=== PATIENT | female | born 1930 | race Caucasian/White ===

== ENCOUNTER → 2017-01-06 | Outpatient (CLI) | payer OTHER | LOC: FIMAGING 15:32 | PROVIDERS: ATTEND Family Medicine | DX: M71.22 Synovial cyst of popliteal space [Baker], left knee (principal); M79.89 Other specified soft tissue disorders ==

== ENCOUNTER 2017-07-03 16:46 | Emergency (ER) | payer OTHER ==
--- NOTE | 2017-07-03 18:03 | EDPHY ---
H & P Stated Complaint: l leg swelling(pt did have fall last week) unsure if related Time Seen by Provider: 07/03/17 17:25 HPI/ROS: Chief Complaint: Left leg swelling HPI: 87-year-old woman presenting with worsening left leg swelling for the past several days. She did state that she fell earlier in this week landing on her left side. She has been up and ambulating since but has been having some persistent pain. She has a history of chronic pain in her left knee. She also has a history of some dependent edema but has had no slowly worsened left calf swelling as compared to the right. No fevers or chills. No chest pain or shortness of breath. She has been ambulating at home without any difficulty. Did not hit her head. Has been in her normal state health. Is here with her son. ROS: 10 point Review of Systems is negative except as noted in the HPI. PMH: Type 2 diabetes, post herpetic neuralgia, hypothyroidism. Past surgical history: Bilateral hip and right knee replacement. Social History: No smoking, no alcohol, no recreational drug use Family History: non-contributory Physical Exam: Gen: Awake, Alert, No Distress HEENT: Nose: no rhinorrhea Eyes: PERRLA, EOMI Mouth: Moist mucosa Neck: Supple, no JVD Chest: nontender, lungs clear to auscultation Heart: S1, S2 normal, no murmur Abd: Soft, non-tender, no guarding Back: no CVA tenderness, no midline tenderness Ext: She has significant left calf swelling as compared to right. Right is mildly swollen. Left calf there is a small area of fluctuance just proximal to the lateral malleolus. There is a very small amount of erythema. Her calf is tender to the touch. Skin: no rash Neuro: CN II-XII intact, Sensation grossly intact, Strength 5/5 in bilateral upper and lower extremities - Personal History Current Tetanus/Diphtheria Vaccine: Unsure - Medical/Surgical History Hx Asthma: No Hx Chronic Respiratory Disease: Yes Hx Diabetes: No Hx Cardiac Disease: Yes Hx Renal Disease: No Hx Cirrhosis: No Hx Alcoholism: No Hx HIV/AIDS: No Hx Splenectomy or Spleen Trauma: No Other PMH: AFIB, NADIYA, BRONCHIECTISIS, BILAT BETSEY, RT TKA, KIDNEY INFECTION - Social History Smoking Status: Never smoked Constitutional: Initial Vital Signs Temperature (C) 36.8 C 07/03/17 16:53 Heart Rate 63 07/03/17 16:53 Respiratory Rate 19 07/03/17 16:53 Blood Pressure 133/71 H 07/03/17 16:53 O2 Sat (%) 90 L 07/03/17 16:53 O2 Delivery Mode Room Air Allergies/Adverse Reactions: levofloxacin [Levofloxacin] Allergy (Verified 07/03/17 16:50) Home Medications: Medication Instructions Recorded Metformin HCl [Metformin 1000 mg] 1,000 mg PO BID 01/09/14 Metoprolol Tartrate [Lopressor 25 25 mg PO BID 01/09/14 mg (RX)] Multivit-Min/FA/Lycopene/Lut 1 each PO DAILY 01/09/14 [Centrum Silver Tablet] Valacyclovir HCl [Valtrex] 1,000 mg PO TID #21 tab 10/11/16 Cephalexin [Keflex (*)] 500 mg PO Q6H #40 cap 07/03/17 Sulfamethox/Tmp 800/160 mg 1 tab PO BID #20 tab 07/03/17 [Bactrim Ds] Medical Decision Making - Diagnostics Imaging Results: Imaging Impressions Extremity Venous Study 07/03/17 17:51 Impression: 1. No definite deep venous thrombosis. The peroneal veins are difficult to characterize given the extent of edema. 2. White's cyst is unchanged. Findings discussed with Emergency Department physician, Dr. Marco Carolina, on July 03, 2017 at 1853 hours. Imaging: Discussed imaging studies w/ waiver analyst Radiologist, I viewed and interpreted images myself ED Course/Re-evaluation: Ultrasound is negative for DVT, especially and large proximal DVT. X-rays negative for acute injury. She does have small area of erythema on the lateral aspect of her left ankle. Will start her on some antibiotics for possible early cellulitis. She will follow up with primary care doctor on Thursday. Return Departure - Departure Disposition: Home, Routine, Self-Care Clinical Impression: Cellulitis, Leg swelling Condition: Good Instructions: Cellulitis (ED), Leg Edema (ED) Additional Instructions: Follow up with primary care physician on Thursday. Return emergency department for increasing redness, swelling, shortness of breath, fevers, chills, or any other concerns. Referrals: SCOTT CURTIS [Primary Care Provider] - As per Instructions Prescriptions: Cephalexin [Keflex (*)] 500 mg PO Q6H #40 cap Sulfamethox/Tmp 800/160 mg [Bactrim Ds] 1 tab PO BID #20 tab
[2017-07-03] MEDS ORDERED: SULFAMET/TMP DS PREPACK#2 BTL TAKEHOME ONE (19:43)
[2017-07-03] MEDS ORDERED: CEPHALEXIN 500MG PREPACK#4 BTL TAKEHOME ONE (19:43)
[2017-07-03 20:26] VITALS: BP 134/80; PULSE 58; RESP 16; TEMP 97.5; O2SAT 98
== END 2017-07-03 20:25 | disposition home or self-care (01) ==
DX: L03.116 Cellulitis of left lower limb (principal); L03.115 Cellulitis of right lower limb; E11.9 Type 2 diabetes mellitus without complications; Z79.84 Long term (current) use of oral hypoglycemic drugs; W18.30XA Fall on same level, unspecified, initial encounter

== ENCOUNTER 2017-07-10 20:19 | Inpatient (IN) | payer OTHER ==
--- NOTE | 2017-07-10 20:39 | EDPHY ---
H & P Stated Complaint: abnormal lab results at MD's Time Seen by Provider: 07/10/17 20:39 - Personal History Current Tetanus Diphtheria and Acellular Pertussis (TDAP): Yes - Medical/Surgical History Hx Asthma: No Hx Chronic Respiratory Disease: Yes Hx Diabetes: Yes Hx Cardiac Disease: Yes Hx Renal Disease: Yes Hx Cirrhosis: No Hx Alcoholism: No Hx HIV/AIDS: No Hx Splenectomy or Spleen Trauma: No Other PMH: AFIB, NADIYA, BRONCHIECTISIS, BILAT BETSEY, RT TKA, KIDNEY INFECTION - Social History Smoking Status: Never smoked Constitutional: Initial Vital Signs Temperature (C) 36.3 C 07/10/17 20:29 Heart Rate 55 L 07/10/17 20:29 Respiratory Rate 20 07/10/17 20:29 Blood Pressure 96/48 L 07/10/17 20:29 O2 Sat (%) 92 07/10/17 20:29 O2 Delivery Mode Nasal Cannula O2 (L/minute) 4 Allergies/Adverse Reactions: levofloxacin [Levofloxacin] Allergy (Verified 07/03/17 16:50) Home Medications: Medication Instructions Recorded Metformin HCl [Metformin 1000 mg] 1,000 mg PO BID 01/09/14 Metoprolol Tartrate [Lopressor 25 25 mg PO BID 01/09/14 mg (RX)] Multivit-Min/FA/Lycopene/Lut 1 each PO DAILY 01/09/14 [Centrum Silver Tablet] Cephalexin [Keflex (*)] 500 mg PO Q6H #40 cap 07/03/17 Sulfamethox/Tmp 800/160 mg 1 tab PO BID #20 tab 07/03/17 [Bactrim Ds] Lyrica 07/10/17 Synthroid 07/10/17 Medical Decision Making ED Course/Re-evaluation: CHIEF COMPLAINT: Worsening renal insufficiency and elevated potassium HISTORY OF PRESENT ILLNESS: 87-year-old female who presented here last week with some bilateral lower extremity edema. She is seen by Dr. Sifuentes for renal insufficiency but there has been no need to intervene according to her son and the patient. She was started on some antibiotics for some cellulitis associated with the lower extremity edema. She had a DVT study which was unremarkable bilaterally. She was recently having some additional leg swelling and her primary care physician Dr. cydney Quintana measured her electrolytes and yesterday revealed potassium of 6.0 and a creatinine of 2.2 he repeated those numbers today and her potassium went up slightly to 6.2 and her creatinine went up slightly to 2.4 and she continues to get additional edema. She otherwise has no complaints. She has been on antibiotics for her leg cellulitis and she may be getting some diarrhea. REVIEW OF SYSTEMS: A 10 point review of systems was performed and is negative with the exception of the elements mentioned in the history of present illness. PHYSICAL EXAM: HR, BP, O2 Sat, RR. Temp noted General Appearance: Alert, well hydrated, appropriate, and non-toxic appearing. Head: Atraumatic without scalp tenderness or obvious injury Eyes: Pupils equal, round, reactive to light and accommodation, EOMI, no trauma , no injection. Ears: Clear bilaterally, no perforation, normal landmarks Nose: Atraumatic, no rhinorrhea, clear. Throat: There is no erythema or exudates, no lesions, normal tonsils, mucus membranes moist. Neck: Supple, 2+ carotid upstroke, nontender, no lymphadenopathy. Respiratory: No retractions, no distress, no wheezes, and no accessory muscle use. Lungs are clear to auscultation bilaterally. Cardiovascular: Regular rate and rhythm, no murmurs, rubs, or gallops. Bilateral carotid, radial, dorsalis pedis, and posterior tibial pulses intact. Good capillary refill all extremities. Gastrointestinal: Abdomen is soft, nontender, non-distended, no masses, no rebound, no guarding, no peritoneal signs. Musculoskeletal: Bilateral lower extremity edema and mild cellulitis left greater than right. Normal active ROM of all extremities, atraumatic. Neurological: Alert, appropriate, and interactive. The patient has normal DTRs and non-focal cranial nerves, motor, sensory, and cerebellar exam. Skin: No rashes, good turgor, no nodules on palpation. Past medical history: Renal insufficiency, type 2 diabetes, hypothyroidism, hypertension Past surgical history: Noncontributory Family history: Noncontributory Social history: , she is accompanied here by her son, she does not abuse tobacco drugs or alcohol DIFFERENTIAL DIAGNOSIS: Patient's worsening edema is secondary to: Renal insufficiency, postobstructive renal disease, intrinsic renal disease, congestive heart failure, fluid overload MEDICAL DECISION MAKING: This patient is in no distress but she does require admission. Her kidney function seems to be worsening and her peripheral edema seems to be worsening. I will admit her to the hospitalist and consult Dr. Sifuentes who is coverage. We also will need to work her up for Clostridium difficile since she is on antibiotics and is starting to developed diarrhea. 21:[address] Lomas, cuff slitter sponsorship coordinator. She recommends administration of insulin, glucose, and sodium bicarbonate for hyperkalemia. Plan to recheck potassium in two hours. Call nephrology for recheck at that time. Departure - Departure Disposition: [facility] Inpatient Acute Clinical Impression: Renal insufficiency, Serum potassium elevated Condition: Fair Report Scribed for: Earl Rivera Report Scribed by: Jasmyne Mata Date of Report: 07/10/17 Time of Report: 21:20
[2017-07-10] MEDS ORDERED: INSULIN REGULAR HUMAN 10 UNIT, COSIGN. REQUIRED 1 EA in D10W 500 ML IV ONE (21:05)
[2017-07-10] MEDS ORDERED: D50W 25 GM/50 ML SYR IVP ONE (21:05)
[2017-07-10] MEDS ORDERED: SODIUM BICARBONATE 150 MEQ in D5W 1,000 ML IV ONE (21:05)
[2017-07-10] MEDS ORDERED: INSULIN REGULAR HUMAN 100 UNIT/ML IVP ONE (21:05)
[2017-07-10 21:41] LABS: % IMMATURE GRANULYOCYTES 0.5 % (0.0-1.1); ABSOLUTE IMMATURE GRANULOCYTES 0.04 10^3/uL (0.00-0.10); ADD DIFF? NO; ADD MORPH? NO; ADD SCAN? NO; ATYPICAL LYMPHOCYTE FLAG 0 (0-99); FRAGMENT RBC FLAG 0 (0-99); HEMATOCRIT 30.3 % (38.0-47.0); HEMOGLOBIN 9.4 g/dL (12.6-16.3); LEFT SHIFT FLG 0 (0-99); LIPEMIA HEMOLYSIS FLAG 80 (0-99); MEAN CELL HEMOGLOBIN 29.5 pg (27.9-34.1); PLATELET CLUMPS FLAG 0 (0-99); PLATELET COUNT 183 10^3/uL (150-400); RED BLOOD CELL COUNT 3.19 10^6/uL (4.18-5.33); RED CELL DISTRIBUTION WIDTH 16.9 % (11.5-15.2)
[2017-07-10 21:51] LABS: INR 1.05 (0.83-1.16); PROTIME(PATIENT) 13.6 SEC (12.0-15.0)
[2017-07-10 21:52] LABS: APTT 38.3 SEC (23.0-38.0)
[2017-07-10 22:02] LABS: ALANINE AMINOTRANSFERASE 44 IU/L (9-52); ALBUMIN 3.7 g/dL (3.5-5.0); ALKALINE PHOSPHATASE 125 IU/L (38-126); ANION GAP 15 mEq/L (8-16); ASPARTATE AMINOTRANSFERASE 43 IU/L (14-46); BILIRUBIN,TOTAL 0.2 mg/dL (0.1-1.4); BILIRUBIN-CONJUGATED 0.2 mg/dL (0.0-0.5); CALCIUM 10.7 mg/dL (8.5-10.4); CARBON DIOXIDE 26 mEq/l (22-31); CHLORIDE 99 mEq/L (97-110); CREATININE 2.5 mg/dL (0.6-1.0); GLOMERULAR FILTRATION RATE 18; GLUCOSE 82 mg/dL (70-100); SODIUM 140 mEq/L (134-144); TOTAL PROTEIN 7.3 g/dL (6.3-8.2)
[2017-07-10 22:05] LABS: POTASSIUM 6.3 mEq/L (3.5-5.2)
--- NOTE | 2017-07-10 23:28 | CPEKG ---
Heart Rate: 58 RR Interval: 1034 P-R Interval: 212 QRSD Interval: 102 QT Interval: 432 QTC Interval: 425 P [place]: 109 QRS [place]: 62 T Wave [place]: 35 EKG Severity - NORMAL ECG - EKG Impression: SINUS RHYTHM Electronically Signed By: Bob Esposito 15-Jul-2017 17:07:07
[2017-07-11 00:27] LABS: ALANINE AMINOTRANSFERASE 41 IU/L (9-52); ALBUMIN 3.3 g/dL (3.5-5.0); ALKALINE PHOSPHATASE 96 IU/L (38-126); ANION GAP 14 mEq/L (8-16); ASPARTATE AMINOTRANSFERASE 42 IU/L (14-46); BILIRUBIN,TOTAL 0.2 mg/dL (0.1-1.4); CALCIUM 10.3 mg/dL (8.5-10.4); CARBON DIOXIDE 27 mEq/l (22-31); CHLORIDE 101 mEq/L (97-110); CREATININE 2.5 mg/dL (0.6-1.0); GLOMERULAR FILTRATION RATE 18; GLUCOSE 61 mg/dL (70-100); POTASSIUM 4.2 mEq/L (3.5-5.2); SODIUM 142 mEq/L (134-144); TOTAL PROTEIN 6.6 g/dL (6.3-8.2)
[2017-07-11] MEDS ORDERED: NS 1,000 ML IV ONE ×2 (00:53→01:31)
[2017-07-11] MEDS ORDERED: ONDANSETRON 4 MG/2 ML VIAL IVP PRN (01:31)
[2017-07-11] MEDS ORDERED: ACETAMINOPHEN 325 MG TAB PO PRN (01:31)
[2017-07-11] MEDS ORDERED: ONDANSETRON DISINTEGRATING 4 MG TAB PO PRN (01:31)
[2017-07-11] MEDS ORDERED: D10W 250 ML PRN HYPOGLYCEMIA IV (01:38)
[2017-07-11] MEDS ORDERED: D50W 25 GM/50 ML SYR IVP PRN ×2 (01:38→02:36)
--- NOTE | 2017-07-11 02:10 | PDGENHP ---
History and Physical - Chief Complaint Hyperkalemia - History of Present Illness 87 yo F w/ hypothyroid, DM, HTN, bronchiectasis on chronic O2, AF, and venous insufficiency presents from PCP's office with hyperkalemia and LAMONT. Patient was seen in the ED on 07/03 with increased left leg swelling after a fall. XR and ultrasound were unremarkable, and patient was discharged with Keflex and Bactrim for possible cellulitis. Upon starting the antibiotics, patient experienced significant diarrhea. After this, she felt somewhat fatigued but was largely asymptomatic. She denies chest pain, palpitations, and shortness of breath. In the ED under the direction of the renal service she was started on Na -HCO3, insulin gtt, and d5 for a K of 6.3. This brought her K down to 4.2 on subsequent blood draw but also resulted in significant hypoglycemia and hypotension requiring admission to SDU. Patient remained asymptomatic throughout. History Information - Allergies/Home Medication List Allergies/Adverse Reactions: levofloxacin [Levofloxacin] Allergy (Verified 07/10/17 22:00) Rash Home Medications: Metformin HCl [Metformin 1000 mg] 1,000 mg PO BID 01/09/14 [Last Taken 07/10/17 09:00] Metoprolol Tartrate [Lopressor 25 mg (RX)] 25 mg PO BID 01/09/14 [Last Taken 11/25 09:00] Furosemide [Lasix 20 MG (*)] 20 mg PO DAILY 07/10/17 [Last Taken 07/10/17] Levothyroxine [Synthroid 50 mcg (*)] 50 mcg PO DAILY06 07/10/17 [Last Taken 11/25] Multivitamins [Multivitamin (*)] 1 each PO DAILY 07/10/17 [Last Taken 07/10/17] Pregabalin [Lyrica 50mg (*)] 50 mg PO BID 07/10/17 [Last Taken 07/10/17 09:00] I have personally reviewed and updated: family history, medical history - Past Medical History atrial fibrillation, diabetes type 2 Additional medical history: Bronchiectasis. Hypothyroid. NADIYA - Family History Positive for: CAD Additional family history: Rheumatoid arthritis - Social History Smoking Status: Never smoked Alcohol Use: None Drug Use: None Review of Systems ROS: 10pt was reviewed & negative except for what was stated in HPI & below Physical Exam Temp Pulse Resp BP Pulse Ox 36.3 C 60 14 80/50 L 95 07/10/17 20:29 07/11/17 00:03 07/11/17 00:03 07/11/17 00:03 07/11/17 00:03 O2 (L/minute) 3 Constitutional: no apparent distress, appears nourished Eyes: PERRL, EOMI Ears, Nose, Mouth, Throat: no oral mucosal ulcers, dry mucous membranes Cardiovascular: regular rate and rhythym, no murmur, rub, or gallop, edema (L>R) Respiratory: no respiratory distress, reduced air movement Gastrointestinal: normoactive bowel sounds, soft, non-tender abdomen Skin: erythema (Edema and mild erythema in b/l LE's (L>R) c/w stasis dermatitis. Chronic ulcer above L lateral malleolus with no current signs of infection) Musculoskeletal: full muscle strength, no muscle tenderness Neurologic: AAOx3, CN II-XII Intact Psychiatric: interacting appropriately, not anxious Lab Data & Imaging Review 07/10/17 21:31 07/11/17 00:00 WBC 8.28 10^3/uL (3.80-9.50) 07/10/17 21:31 RBC 3.19 10^6/uL (4.18-5.33) L 07/10/17 21:31 Hgb 9.4 g/dL (12.6-16.3) L 07/10/17 21:31 Hct 30.3 % (38.0-47.0) L 07/10/17 21:31 MCV 95.0 fL (81.5-99.8) 07/10/17 21:31 MCH 29.5 pg (27.9-34.1) 07/10/17 21:31 MCHC 31.0 g/dL (32.4-36.7) L 07/10/17 21:31 RDW 16.9 % (11.5-15.2) H 07/10/17 21:31 Plt Count 183 10^3/uL (150-400) 07/10/17 21:31 MPV 10.0 fL (8.7-11.7) 07/10/17 21:31 Neut % (Auto) 69.8 % (39.3-74.2) 07/10/17 21:31 Lymph % (Auto) 22.0 % (15.0-45.0) 07/10/17 21:31 [place] % (Auto) 6.2 % (4.5-13.0) 07/10/17 21:31 Eos % (Auto) 1.3 % (0.6-7.6) 07/10/17 21:31 Baso % (Auto) 0.2 % (0.3-1.7) L 07/10/17 21:31 Nucleat RBC Rel Count 0.0 % (0.0-0.2) 07/10/17 21:31 Absolute Neuts (auto) 5.78 10^3/uL (1.70-6.50) 07/10/17 21: Absolute Lymphs (auto) 1.82 10^3/uL (1.00-3.00) 07/10/17 21:31 Absolute Monos (auto) 0.51 10^3/uL (0.30-0.80) 07/10/17 21:31 Absolute Eos (auto) 0.11 10^3/uL (0.03-0.40) 07/10/17 21:31 Absolute Basos (auto) 0.02 10^3/uL (0.02-0.10) 07/10/17 21:31 Absolute Nucleated RBC 0.00 10^3/uL (0-0.01) 07/10/17 21:31 Immature Gran % 0.5 % (0.0-1.1) 07/10/17 21: Immature Gran # 0.04 10^3/uL (0.00-0.10) 07/10/17 21:31 PT 13.6 SEC (12.0-15.0) 07/10/17 21:31 INR 1.05 (0.83-1.16) 07/10/17 21:31 APTT 38.3 SEC (23.0-38.0) H 07/10/17 21:31 Sodium 142 mEq/L (134-144) 07/11/17 00:00 Potassium 4.2 mEq/L (3.5-5.2) 07/11/17 00:00 Chloride 101 mEq/L (97-110) 07/11/17 00:00 Carbon Dioxide 27 mEq/l (22-31) 07/11/17 00:00 Anion Gap 14 mEq/L (8-16) 07/11/17 00:00 BUN 84 mg/dL (7-23) H 07/11/17 00:00 Creatinine 2.5 mg/dL (0.6-1.0) H 07/11/17 00:00 Estimated GFR 18 07/11/17 00:00 Glucose 61 mg/dL (70-100) L 07/11/17 00:00 POC Glucose 114 mg/dL (70-100) H 07/11/17 01:24 Calcium 10.3 mg/dL (8.5-10.4) 07/11/17 00:00 Phosphorus 5.8 mg/dL (2.5-4.5) H 07/10/17 21:31 Total Bilirubin 0.2 mg/dL (0.1-1.4) 07/11/17 00:00 Conjugated Bilirubin 0.2 mg/dL (0.0-0.5) 07/10/17 21:31 Unconjugated Bilirubin 0.0 mg/dL (0.0-1.1) 07/10/17 21:31 AST 42 IU/L (14-46) 07/11/17 00:00 ALT 41 IU/L (9-52) 07/11/17 00:00 Alkaline Phosphatase 96 IU/L (38-126) 07/11/17 00:00 NT-Pro-B Natriuret Pep 3240 pg/mL (0-450) H 07/10/17 21:31 Total Protein 6.6 g/dL (6.3-8.2) 07/11/17 00:00 Albumin 3.3 g/dL (3.5-5.0) L 07/11/17 00:00 Lipase 215 IU/L (23-300) 07/10/17 21:31 Visualized and Interpreted EKG results: Yes EKG Interpretation: Positive for: normal sinsus rhythm, NS ST wave abnormalities Assessment & Plan Assessment: 87 yo F w/ bronchiectasis, AF, DM, hypothyroid, and venous insufficiency p/w LAMONT and hyper-kalemia in setting of diarrhea. Plan: 1. LAMONT - Serum Cr 2.5 on admission with unknown baseline. Suspect at least partly related to dehydration in the setting of antibiotic induced diarrhea. Has not yet produced urine so unable to comment on sediment. Direct toxic effect from Bactrim or AIN also on the differential. - IVF for hydration, UA and FeNa, FeUrea when able - Renal service consulted 2. Hyperkalemia - 6.3 on admission; improved to 4.2 after Na-HCO3 and insulin in ED. No ECG changes noted, in sinus rhythm w/ normal intervals and T wave morphology. Likely related to combination of LAMONT and Bactrim. - Monitor daily BMP. 3. Diarrhea - Temporally related to antibiotics, which are likely causative. - GI PCR panel ordered to rule out infection 4. Hypoglycemia - Iatrogenic in setting of insulin gtt and LAMONT. Improved after D50. 5. Hypotension - Transient in setting of hypoglycemia and hypovolemia. - IVF, admit to SDU for close monitoring 6. Bronchiectasis - On 4L chronic O2 therapy. 7. NADIYA - Nighttime CPAP 8. Hx AF - On metoprolol, seems to no longer be on AC. In NSR on admission. 9. DM - On metformin as outpatient. Will hold noting LAMONT. No insulin for now noting hypoglycemia. 10. Hypothyroid - On LTX as outpatient. Diet - Regular Code - Full Ppx - LMWH Dispo - Admit to inpatient
[2017-07-11 02:59] LABS: % IMMATURE GRANULYOCYTES 0.3 % (0.0-1.1); ABSOLUTE IMMATURE GRANULOCYTES 0.03 10^3/uL (0.00-0.10); ADD DIFF? NO; ADD MORPH? NO; ADD SCAN? NO; ATYPICAL LYMPHOCYTE FLAG 0 (0-99); FRAGMENT RBC FLAG 0 (0-99); HEMATOCRIT 24.7 % (38.0-47.0); HEMOGLOBIN 7.6 g/dL (12.6-16.3); LEFT SHIFT FLG 0 (0-99); LIPEMIA HEMOLYSIS FLAG 80 (0-99); MEAN CELL HEMOGLOBIN 29.8 pg (27.9-34.1); MEAN CELL HEMOGLOBIN CONCENTR. 30.8 g/dL (32.4-36.7); MEAN CELL VOLUME 96.9 fL (81.5-99.8); MEAN PLATELET VOLUME 10.6 fL (8.7-11.7); PLATELET CLUMPS FLAG 0 (0-99); PLATELET COUNT 153 10^3/uL (150-400); RED BLOOD CELL COUNT 2.55 10^6/uL (4.18-5.33); RED CELL DISTRIBUTION WIDTH 16.9 % (11.5-15.2)
[2017-07-11 03:11] LABS: ALANINE AMINOTRANSFERASE 39 IU/L (9-52); ALBUMIN 2.8 g/dL (3.5-5.0); ALKALINE PHOSPHATASE 84 IU/L (38-126); ANION GAP 10 mEq/L (8-16); ASPARTATE AMINOTRANSFERASE 38 IU/L (14-46); BILIRUBIN,TOTAL 0.2 mg/dL (0.1-1.4); CALCIUM 9.3 mg/dL (8.5-10.4); CARBON DIOXIDE 24 mEq/l (22-31); CHLORIDE 103 mEq/L (97-110); CREATININE 2.1 mg/dL (0.6-1.0); GLOMERULAR FILTRATION RATE 22; GLUCOSE 140 mg/dL (70-100); POTASSIUM 4.7 mEq/L (3.5-5.2); SODIUM 137 mEq/L (134-144); TOTAL PROTEIN 5.7 g/dL (6.3-8.2)
[2017-07-11] MEDS ORDERED: D10W 1,000 ML IV SCH (04:00)
[2017-07-11] MEDS ORDERED: NS 2,000 ML IV ONE (04:00)
[2017-07-11 05:51] LABS: BASE EXCESS -2.7 mEq/L (-2.5-2.5); BICARBONATE 24 mEq/L (22-26); MEASURED OXYGEN SATURATION 96 % (92-95); PCO2 47 mmHg (34-38); PO2 82 mmHg (65-75); TCO2 25 mEq/L (23-27)
[2017-07-11 05:52] LABS: CPAP YES
[2017-07-11 06:15] LABS: MIXED VENOUS O2 SATURATION 69 % (65-75)
--- NOTE | 2017-07-11 06:36 | GPN ---
[f rep st] PROCEDURE NOTE DATE OF PROCEDURE: 07/11/2017 SURGEON: Bhavesh Daniels MD PREOPERATIVE DIAGNOSIS: Hypotension and inadequate venous access for vasopressor medication. POSTOPERATIVE DIAGNOSIS: Hypotension and inadequate venous access for vasopressor medication. PROCEDURE PERFORMED: Placement of a right supraclavicular access to the subclavian vein. FINDINGS: Hypotension and inadequate venous access for vasopressor medication. INDICATIONS: Hypotension and inadequate venous access for vasopressor medication. DESCRIPTION OF PROCEDURE: The patient is appropriately identified. Verbal consent had been obtained from a family member. The patient was appropriately identified. She was placed in a Trendelenburg position. There is jugular venous distention noted. Her right chest was carefully prepped and draped. The skin was anesthetized. One pass in the subclavian approach was unsuccessful. Position was changed and a supraclavicular approach to the subclavian vein was used. This resulted in prompt and easy central access. A guidewire was fed centrally through the needle. Needle was removed. Skin was incised. A dilator was carefully passed and removed. A flushed triple-lumen catheter was carefully passed to the 15 cm marge. The guidewire was removed. The last Hep-Lock adaptor was placed and the brown hub of the triple-lumen was now flushed. The line was sutured in position with a 2nd suture used to secure to the chest wall. A Biopatch was placed. Tegaderm was used. A chest x-ray confirms good position without evidence of pneumothorax. /[id number]/MODL MTDD
[2017-07-11 06:42] LABS: COLOR PALE YELLOW; LEUKOCYTE ESTERASE,URINE TRACE (NEGATIVE); NITRITE,URINE NEGATIVE (NEGATIVE)
[2017-07-11 06:43] LABS: % IMMATURE GRANULYOCYTES 0.3 % (0.0-1.1); ABSOLUTE IMMATURE GRANULOCYTES 0.03 10^3/uL (0.00-0.10); ADD DIFF? NO; ADD MORPH? NO; ADD SCAN? NO; ATYPICAL LYMPHOCYTE FLAG 10 (0-99); FRAGMENT RBC FLAG 0 (0-99); HEMATOCRIT 28.2 % (38.0-47.0); HEMOGLOBIN 8.7 g/dL (12.6-16.3); LEFT SHIFT FLG 0 (0-99); LIPEMIA HEMOLYSIS FLAG 80 (0-99); MEAN CELL HEMOGLOBIN 29.2 pg (27.9-34.1); MEAN CELL HEMOGLOBIN CONCENTR. 30.9 g/dL (32.4-36.7); MEAN CELL VOLUME 94.6 fL (81.5-99.8); MEAN PLATELET VOLUME 9.9 fL (8.7-11.7); PLATELET CLUMPS FLAG 0 (0-99); PLATELET COUNT 185 10^3/uL (150-400); RED BLOOD CELL COUNT 2.98 10^6/uL (4.18-5.33); RED CELL DISTRIBUTION WIDTH 16.9 % (11.5-15.2)
[2017-07-11 06:49] LABS: WBC,URINE 15-25 /hpf (0-3)
[2017-07-11 07:15] LABS: ANION GAP 9 mEq/L (8-16); CALCIUM 9.2 mg/dL (8.5-10.4); CARBON DIOXIDE 26 mEq/l (22-31); CHLORIDE 101 mEq/L (97-110); GLOMERULAR FILTRATION RATE 24; GLUCOSE 94 mg/dL (70-100); MAGNESIUM 2.2 mg/dL (1.6-2.3); POTASSIUM 5.4 mEq/L (3.5-5.2); SODIUM 136 mEq/L (134-144)
[2017-07-11] MEDS ORDERED: NS 1,000 ML IV SCH ×2 (08:30→18:30)
[2017-07-11] MEDS ORDERED: PREGABALIN 50 MG CAP PO SCH ×2 (09:00→10:24)
[2017-07-11] MEDS ORDERED: ENOXAPARIN 30 MG/0.3 ML SYR SC SCH (09:00)
[2017-07-11] MEDS ORDERED: SODIUM POLY SULF 15 GM/60 ML BOTTLE PO ONE (10:25)
[2017-07-11] MEDS ORDERED: D5W NS 1,000 ML IV SCH (10:30)
--- NOTE | 2017-07-11 10:55 | ECHO ---
[id number] + + [address] : : [place] [address] : : [phone] + + Adult Echocardiographic Report + ----+ :Name: ZAYDA ESPINO PStudy Date: 07/11/2017 09:01 AM : : Hospital Admission Number: [id number] Location: 247: :: 1930 Gender: Female Height: 63 in : :Age: 87 yrs Race: WH Weight: 130 lb : :Reason For Study: Hypotenstion, edema : : BSA: 1.6 meters2 : :History: no previous : + ----+ MMode/2D Measurements \T\ Calculations IVSd: 1.3 cm LVIDd: 3.8 cm FS: 35.1 % LVOT diam: 2.0 cm LVPWd: 1.3 cm LVIDs: 2.5 cm EDV(Teich): LVOT area: 62.9 ml 3.3 cm2 ESV(Teich): 21.9 ml EF(Teich): 65.1 % LVLd ap4: 6.4 cm SV(MOD-sp4): EDV(MOD-sp4): 40.0 ml 54.0 ml LVLs ap4: 5.2 cm ESV(MOD-sp4): 14.0 ml EF(MOD-sp4): 74.1 % Normal Measurement Values: + + :LVIDd (3.5-5.7cm) IVSd (0.6-1.1cm) LVPWd (0.6-1.1cm) Aortic Root (2.0-3.7cm)Left Atrium (1.5-4.0cm): :LV Vol(d) (76-115ml) LV Vol(s) (29-48ml) Ejec Fraction (50-65%)PV Lucas (0.6- 1.2m/s) TV Lucas (0.4-1.0m/s) : :MV E Lucas (0.8-1.0m/s)MV A Lucas (0.3-1.0m/s)LVOT Lucas (0.7-1.2m/s) Asc Ao Lucas ( 0.9-1.8m/s) : + + Doppler Measurements \T\ Calculations MV E max lucas: MV V2 max: Ao mean PG: LV V1 mean P.5 cm/sec 177.6 cm/sec 8.2 mmHg 3.6 mmHg MV A max lucas: MV max PG: Ao V2 mean: LV V1 mean: 61.2 cm/sec 12.6 mmHg 132.4 cm/sec 83.1 cm/sec MV E/A: 1.9 MV V2 mean: Ao V2 VTI: 39.2 cm LV V1 VTI: 25.7 cm MV dec time: 69.9 cm/sec ALVIN(I,D): 2.1 cm2 0.20 sec MV mean P.9 mmHg MV V2 VTI: 36.5 cm MVA(VTI): 2.3 cm2 MR max lucas: SV(LVOT): 84.0 ml PI end-d lucas: TR max lucas: 522.0 cm/sec 104.1 cm/sec 386.1 cm/sec MR max PG: TR max P.0 mmHg 59.6 mmHg RAP systole: 15.0 mmHg RVSP(TR): 74.6 mmHg Left Ventricle The left ventricle is normal in size and function. There is mild concentric left ventricular hypertrophy. Ejection Fraction = 65%. There is Doppler evidence for diastolic dysfunction. No regional wall motion abnormalities noted. Right Ventricle The right ventricle is mildly dilated. The right ventricular systolic function is normal. Atria The left atrium is mildly dilated. The Left Atrial Volume is 36.6 ml/m2. Right atrial size is normal. The interatrial septum is intact with no evidence for an atrial septal defect. Mitral Valve The mitral valve is normal in structure and function. There is mild mitral annular calcification. There is no mitral valve stenosis. There is mild mitral regurgitation. Tricuspid Valve The tricuspid valve is normal in structure and function. There is no tricuspid stenosis. There is moderate tricuspid regurgitation. Right ventricular systolic pressure is 74.6mmHg. Aortic Valve The aortic valve is not well visualized. Mild Aortic Valve Calcification. There is no aortic stenosis. There is no aortic insufficiency. Pulmonic Valve The pulmonic valve is not well visualized. trace to mild pulmonic valvular regurgitation. Great Vessels The aortic root is normal size. Pericardium/Pleural There is a fat pad seen. Conclusion A complete two-dimensional transthoracic echocardiogram was performed (2D, M-mode, Doppler and color flow Doppler). Normal LV systolic function with EF of 65% . Mild concentric LVH. There is Doppler evidence for diastolic dysfunction. Mild LAE There is mild mitral regurgitation. There is moderate tricuspid regurgitation. Right ventricular systolic pressure is 74.6mmHg. Trace to mild pulmonic valvular regurgitation. Final Reading Physician: Fabiana Castro signed on 07/11/2017 10:54 AM Ordering Physician: Dimas Leija Performed By: Shonda Duarte
[2017-07-11] MEDS: LEVOTHYROXINE 50 MCG TAB PO SCH (10:57)
[2017-07-11] MEDS: MULTIVITAMINS 1 EACH TAB PO SCH (10:58)
--- NOTE | 2017-07-11 12:12 | GCON ---
[f rep st] CONSULTATION RECONCILIATION ACCOUNTANT CONSULTATION DATE OF CONSULTATION: 07/11/2017 REASON FOR ADMISSION: Hyperkalemia. HISTORY OF PRESENT ILLNESS: The patient is an 87-year-old white female with an extensive past medic al history including hypertension, diabetes, atrial fib, and bronchiectasis, for which she is on chr onic oxygen. She was brought in for hyperkalemia. The patient is currently quite somnolent, and al l history is gleaned from the medical record. Apparently, she was in the emergency room on the 03 of July for leg swelling. She was diagnosed with cellulitis and sent out on Keflex and Bactrim. Shortly thereafter, she began developing significant diarrhea. She was seen by Nephrology, who beg an her on bicarb, an insulin drip, and D5 for the high potassium. PAST MEDICAL HISTORY: Again, significant for bronchiectasis, venous insufficiency, hypertension, di abetes, and hypothyroidism. ALLERGIES: Levofloxacin. SOCIAL HISTORY: No history of tobacco use. No history of alcohol use. MEDICATIONS: Include metformin, metoprolol, Lasix, levothyroxine, multivitamin, and Lyrica. PHYSICAL EXAMINATION: VITAL SIGNS: Blood pressure 113/42, pulse 70, respirations 16, temperature 3 7.1, oxygen saturation 95% on 5 L. GENERAL: She is a thin 87-year-old white female, who is resting comfortably and in no acute distress. HEENT: Eyes are PERRLA. EOMI. Throat shows no erythema or tonsillar hypertrophy. NECK: Supple. There is no cervical adenopathy. HEART: Irregularly irreg ular, with a 2/6 systolic murmur at the left sternal border, without radiation. LUNGS: Diminished breath sounds. Mild prolongation of the expiratory phase, but there is no wheeze. ABDOMEN: Soft, nontender. Bowel sounds are present in all 4 quadrants. EXTREMITIES: There is no clubbing or cyan osis. However, there is significant erythema in the lower extremities. LABORATORIES: White count 10, hemoglobin 7.6, hematocrit 24, platelet count 153. Sodium 137, potas sium 4.7, chloride 103, CO2 24, BUN 78, creatinine 2.1, glucose 140. Urinalysis is negative. Arter ial blood gas: pH 7.31, pCO2 47, pO2 82, bicarb 25, oxygen saturation 96%. Chest x-ray shows some evidence of fluid overload, and there is a right-sided central venous catheter. IMPRESSION: 1. Hyperkalemia, likely secondary to renal failure. 2. Acute renal failure. 3. Diarrhea. 4. Obstructive sleep apnea. 5. Atrial fibrillation. 6. Diabetes mellitus. 7. Hypothyroidism. 8. History of bronchiectasis. 9. Hypoglycemia. RECOMMENDATIONS: 1. Close glucose monitoring. 2. Follow chemistries closely. 3. Continue the majority of her home medications. 4. CPAP at night. 5. DVT and PE prophylaxis. 6. Stress ulcer prophylaxis. /[id number]/MODL
--- NOTE | 2017-07-11 14:03 | ASMTCMCOM ---
CM Note CM Note Notes: Pt admitted for hyperkalemia and per RN is somnolent and unable to discuss DC plan. Per RN, pt has been living with gson for past few month. She has a dtr in the area. RN feels that pt saji need SNF at DC. C/M will f/u when pt able to participate. Date Signed: 07/11/2017 02:02 PM Electronically Signed By:Charity Jaffe
[2017-07-11] MEDS: HEPARIN 5,000 UNIT/0.5 ML SYR SC SCH ×2 (14:57→22:17)
--- NOTE | 2017-07-11 15:04 | SOAPPROG ---
KAREN Progress Note Assessment/Plan: Assessment: See dictation # [id number] I am international banker for weekend for renal pager [phone] 07/11/17 16:31 Objective: Vital Signs Temp Pulse Resp BP Pulse Ox 36.8 C 67 14 108/58 L 94 07/11/17 14:00 07/11/17 14:00 07/11/17 14:00 07/11/17 14:00 07/11/17 14:00 Laboratory Results 07/11/17 06:40 07/11/17 06:40 07/10/17 07/11/17 07/12/17 05:59 05:59 05:59 Intake Total 3052 Output Total 250 375 Balance 2802 -375 PT 13.6 SEC (12.0-15.0) 07/10/17 21:31 INR 1.05 (0.83-1.16) 07/10/17 21:31 ICD10 Worksheet Patient Problems: Problems Problem Status Onset Renal insufficiency Acute Serum potassium elevated Acute Chronic Disease Managment/Transitional Care Program Acute Pneumonia Acute
--- NOTE | 2017-07-11 17:23 | GCON ---
[f rep st] CONSULTATION INPATIENT NEPHROLOGY CONSULTATION REFERRING PHYSICIAN: Earl Rivera MD REASON FOR CONSULTATION: Acute kidney injury, hyperkalemia. HISTORY OF PRESENT ILLNESS: The patient is an 87-year-old woman with a history of diabetes, hypothyroidism, hypertension, bronchiectasis on chronic oxygen who was sent to the emergency room last night from her primary care's office due to worsening renal function. She was seen at [facility] in the emergency room on July 03 with increased leg swelling after a fall. She underwent an ultrasound then that was negative for DVT. She was started on Keflex and Bactrim for possible cellulitis. She subsequently developed some diarrhea and fatigue. Her creatinine was not checked then. On arrival to the emergency room yesterday, her creatinine was 2.4. It has improved to a value of 2.0 on the last check. Her potassium was 6.3 on arrival. I had recommended to Dr. Rivera giving her some insulin, D50, bicarbonate and some IV normal saline, and her potassium did improve to 4.2. However, she did get significantly hypoglycemic. She also became hypotensive and required transfer to the ICU. She has been placed on some IV fluids and unfortunately has now also required dopamine for blood pressure support. Discussing with the ICU nurse, she was unable to titrate off the dopamine. She is currently sleeping but is alert and oriented when arousable. She has had good urine output so far today. Blood cultures have been sent given the persistent hypotension. She did require some D10 overnight to help with the hypoglycemia, and is now currently on D5 NS with blood sugars in the 100s to 130s range. Reviewing labs in the [facility] system, the last creatinine value we have prior to this admission was from 2013, at which time she was 0.7. We do not have a more recent baseline creatinine. REVIEW OF SYSTEMS: GENERAL: She has had some generalized malaise and weakness. PULMONARY: No shortness of breath. She does wear oxygen chronically. CARDIAC: She has had some increased lower extremity edema after a fall. No chest pain. GI: Some nonbloody diarrhea. No vomiting. : No difficulty voiding. No hematuria. SKIN: Recent cellulitis of her left lower extremity. No rash. NEUROLOGIC: Some generalized weakness. ENDOCRINE: Hypoglycemia overnight after giving insulin. She is on metformin as an outpatient. HEME: No witnessed bleeding. PAST MEDICAL HISTORY: 1. Type 2 diabetes on oral medications. 2. Hypertension. 3. Bronchiectasis on chronic oxygen. 4. Atrial fibrillation. 5. Venous insufficiency. 6. Recent fall with subsequent left leg swelling. Negative x-ray and ultrasound. 7. Hypothyroidism. SOCIAL HISTORY: No tobacco or alcohol. FAMILY HISTORY: Notable for coronary artery disease and rheumatoid arthritis. MEDICATIONS: Outpatient medications included metformin, metoprolol, Lasix, Synthroid, multivitamin, and Lyrica. Current medications include: Tylenol p.r.n., D5 normal saline at 50 cc an hour, dopamine drip, heparin 5000 units subcutaneously q.8 hours, Synthroid 50 mcg p.o. daily, multivitamin p.o. daily, Zofran p.r.n., Lyrica 25 mg p.o. b.i.d. PHYSICAL EXAMINATION: VITALS: Temperature 36.8, blood pressure 102/54, pulse 67, satting 93% on 5 L of oxygen. GENERAL: She is chronically ill appearing, in no acute distress. Sleeping, but easily arousable. HEENT: Her mucous membranes appear dry. NECK: She has a right internal jugular triple lumen that is clean, dry, and intact. LUNGS: Coarse breath sounds throughout. CARDIOVASCULAR: Regular rate and rhythm. No murmur or rub. ABDOMEN: Soft, nontender. Normal bowel sounds. : She has a Padilla in place with clear yellow urine. EXTREMITIES: Multiple bruises and abrasions on bilateral legs. She does have edema in her ankles bilaterally. NEUROLOGIC: Again, she is sleeping, but is easily arousable. Discussing with the nurse, she has been alert and oriented x3 all day today. LABS: Sodium 136, potassium 5.4, chloride 101, bicarbonate 26, BUN 73, creatinine 2.0, calcium 9.2, phosphorus 4.0, magnesium 2.2. Her blood gas this morning showed a pH 7.31, pCO2 42, pO2 82, bicarbonate 24. White blood cell count 9.0, hemoglobin 8.7, hematocrit 28.2, platelets 185. Her urinalysis was negative for protein or blood. Did show 15 to 25 white blood cells. Her INR is 1.05. AST 38, ALT 39, alkaline phosphatase 84. Troponin less than 0.012. Total protein 5.7, albumin 1.8, TSH 1.66. Blood cultures are pending. Echocardiogram done today showed LVEF 65%, some diastolic dysfunction. No wall motion abnormalities. Right ventricle is mildly dilated with normal systolic function. No pericardial effusion. Mild concentric LVH. Her RVSP was 74.6 mmHg. ASSESSMENT/PLAN: The patient is an 87-year-old woman with a history of diabetes , hypertension, obstructive sleep apnea, bronchiectasis, and chronic oxygen who now presents with acute kidney injury, hyperkalemia, hypotension after a recent fall, on antibiotic course. 1. Acute kidney injury. It is unclear what her baseline renal function as the last labs we have prior to this admission in the system are from 2013, at which time her creatinine was normal. Her creatinine on admission was 2.4 and it has improved to 2.0, and she is nonoliguric. I suspect this is likely a combination of a Bactrim effect as well as possibly hemodynamic. Her echocardiogram does support pulmonary hypertension, and she may be significantly preload dependent. At this point, I would continue gentle intravenous fluids as you are, as well as support with pressors to keep her blood pressure up and ongoing evaluation for sepsis is in the process given her significant hypotension overnight. At this point, there are no acute dialysis indications, and we will follow closely. It would be also helpful to get records from her outpatient clinic to determine what her recent renal function has been running. 2. Hyperkalemia. I suspect this is likely due to the Bactrim effect as well as her acute kidney injury. This has been managed medically, and her most recent potassium is down to 5.4. Unfortunately, she did get hypoglycemic from the insulin and has required some D5 to support her blood sugars overnight. Her most recent sugar is 136. We will continue to monitor this. When she taking oral intake, I would have her on a low potassium diet for now until this improves. 3. Hypotension. This is concerning for possible sepsis. Blood cultures are pending. She is requiring low dose dopamine. I will defer to the critical care team for further management. I do agree with continued gentle fluids. Her echocardiogram shows she has a normal left ventricular ejection fraction, but pulmonary hypertension and she is likely preload dependent. 4. Acidosis. She did have some respiratory acidosis overnight and was placed on continuous positive airway pressure. It appears she does have some underlying obstructive sleep apnea. 5. Diabetes. I agree with holding the metformin and covering her with insulin sliding scale. Thank you very much for the consultation. I have discussed my recommendations with both the emergency room and the ICU team. Please do not hesitate to call with any questions. We will continue to follow closely with you. /[id number]/MODL MTDD
[2017-07-11] MEDS ORDERED: VANCOMYCIN HCL/NORMAL SALINE 250 ML IV SCH (17:30)
--- NOTE | 2017-07-11 17:39 | HOSPPROG ---
Hospitalist Progress Note Assessment/Plan: Assessment: 87 yo F p/w LAMONT and hyperkalemia c/b acute hypoglycemia and shock of unclear etiology Plan: 1. LAMONT - non-oliguric, 2/2 combination of hypovolemia (from diarrhea) and bactrim, unclear baseline - d/w Dr. Stallworth, she recommends ongoing IVF w/ pressor support, UOP good, attempting to locate outpt baseline - no SOCK TURNER required at this time 2. Hyperkalemia - acute, 6.3 on admission, suspect 2/2 LAMONT, EKG w/ sinus liz but no peaked T-waves (personally interpreted) - responded to insulin and IVF, one dose kayex given today - cont to monitor 3. Shock - unclear etiology, lact 3.4 on presentation and then w/ SBP 70s in setting of hypoglycemia, received 3L NS and CVP 12 - placed on dopamine, responded well, continue and wean - mentating well, recommended to RN that our goal SBP > 100 so long as she is mentating and lactic not rising, most recent check 0.7 - serial lactics at 10 p.m. and in AM - Echo w/ normal EF, diast dysfunction, unlikely to be cardiogenic - possible cellulitis on LLE but not particularly severe, give Vanco renally dosed given that she's still requiring pressors 4. Hypoglycemia - Iatrogenic in setting of insulin gtt and LAMONT, on D5 NS 5. Bronchiectasis - On 4L chronic O2 therapy, compared to prior CXR, similar, no PNA 6. NADIYA - Nighttime CPAP 7. Paroxysmal AFib - Holding metoprolol given shock, seems to no longer be on AC , NSR on EKG 8. DM - On metformin as outpatient, hold given LAMONT 9. Hypothyroid - On LTX as outpatient, continue 10. Neuropathy - weaning as outpt, lowered to 25 bid here Diet - Regular Code - Full Ppx - Hep SC Dispo - ADD uncertain, remains critically ill w/ high risk of morbidity/ mortality 50 minutes of critical care time spent with patient at bedside, on team rounds, coordinating w/ above providers (including Dr. Artis and Leija), addressing the above issues. Subjective: reports she is fatigued but not in pain Objective: Vital Signs Temp Pulse Resp BP Pulse Ox 36.8 C 67 14 106/52 L 95 07/11/17 17:00 07/11/17 17:00 07/11/17 17:00 07/11/17 17:00 07/11/17 17:00 Laboratory Results 07/11/17 06:40 07/11/17 06:40 07/10/17 07/11/17 07/12/17 05:59 05:59 05:59 Intake Total 3052 Output Total 250 500 Balance 2802 -500 PT 13.6 SEC (12.0-15.0) 07/10/17 21:31 INR 1.05 (0.83-1.16) 07/10/17 21:31 - Physical Exam Constitutional: not in pain, chronically ill appearing, other (elderly appearing ), No uncomfortable Ears, Nose, Mouth, Throat: dry mucous membranes Cardiovascular: systolic murmur (I/ at sternum), edema (1+ LLE), No irregularly irregular, No tachycardia Respiratory: rhonchi (bilat on insp), No reduced air movement, No expiratory wheeze, No bronchial breath sounds Gastrointestinal: normoactive bowel sounds, soft, non-tender abdomen, no palpable masses, No distension Genitourinary: no bladder fullness, no bladder tenderness, no renal bruits Skin: other (blanchable erythema light on LLE lateral aspect w/ ecchymoses bilat LE, no open ulcers, but w/ granulated abrasion LLE) Neurologic: AAOx3, sensation intact bilaterally, No weakness (motor 5/5 bilat LE ) Psychiatric: not anxious, not encephalopathic, flat affect, other (lethargic but arousable), No agitated ICD10 Worksheet Patient Problems: Problems Problem Status Onset Pneumonia Acute Chronic Disease Managment/Transitional Care Program Acute Renal insufficiency Acute Serum potassium elevated Acute
[2017-07-11] MEDS ORDERED: VANCOMYCIN 750 MG in D5W 150 ML IV SCH (18:00)
[2017-07-11] MEDS: PREGABALIN 25 MG CAP PO SCH (20:19)
[2017-07-12 05:48] LABS: % IMMATURE GRANULYOCYTES 0.5 % (0.0-1.1); ABSOLUTE IMMATURE GRANULOCYTES 0.04 10^3/uL (0.00-0.10); ADD DIFF? NO; ADD MORPH? NO; ADD SCAN? NO; ATYPICAL LYMPHOCYTE FLAG 10 (0-99); FRAGMENT RBC FLAG 0 (0-99); HEMATOCRIT 29.1 % (38.0-47.0); HEMOGLOBIN 8.8 g/dL (12.6-16.3); LEFT SHIFT FLG 0 (0-99); LIPEMIA HEMOLYSIS FLAG 80 (0-99); MEAN CELL HEMOGLOBIN 29.1 pg (27.9-34.1); MEAN CELL HEMOGLOBIN CONCENTR. 30.2 g/dL (32.4-36.7); MEAN CELL VOLUME 96.4 fL (81.5-99.8); MEAN PLATELET VOLUME 9.6 fL (8.7-11.7); PLATELET CLUMPS FLAG 10 (0-99); PLATELET COUNT 169 10^3/uL (150-400); RED BLOOD CELL COUNT 3.02 10^6/uL (4.18-5.33)
[2017-07-12] MEDS: HEPARIN 5,000 UNIT/0.5 ML SYR SC SCH ×3 (05:59→21:05)
[2017-07-12 06:01] LABS: ALANINE AMINOTRANSFERASE 55 IU/L (9-52); ALBUMIN 2.9 g/dL (3.5-5.0); ALKALINE PHOSPHATASE 111 IU/L (38-126); ANION GAP 7 mEq/L (8-16); ASPARTATE AMINOTRANSFERASE 51 IU/L (14-46); BILIRUBIN,TOTAL 0.5 mg/dL (0.1-1.4); CALCIUM 8.7 mg/dL (8.5-10.4); CARBON DIOXIDE 26 mEq/l (22-31); CHLORIDE 106 mEq/L (97-110); CREATININE 1.9 mg/dL (0.6-1.0); GLOMERULAR FILTRATION RATE 25; GLUCOSE 130 mg/dL (70-100); POTASSIUM 4.9 mEq/L (3.5-5.2); SODIUM 139 mEq/L (134-144); TOTAL PROTEIN 6.3 g/dL (6.3-8.2)
[2017-07-12] MEDS: LEVOTHYROXINE 50 MCG TAB PO SCH (06:27)
--- NOTE | 2017-07-12 07:42 | SOAPPROG ---
SOAP Progress Note Assessment/Plan: Assessment: 1)LAMONT, non-oliguric -suspect combination of Bactrim, diarrhea -unclear baseline Cr (last labs in system were from 2013)- will try and see if my office has any -Cr improving with gentle IVF, holding bactrim -TTE shows pulm HTN and likely pre-load dependent -would continue gentle IV NS for now stefan as not taking po well yet 2)HyperK -improved -likely bactrim and LAMONT -low K diet when taking po for now 3)Hypotension- ?sepsis -requiring dopamine -blood Cx still pending, no fevers, lactate ok -on vanco -TTE ok LVEF 65%, mod pulm HTN -cortisol pending 4)Pulm HTN 5)Bronchiectasis with chronic 4L O2 requirement 6)recent fall with cellulitis LE 7)NADIYA CPAP at night I am keyboard action assembler for weekend for renal pager [phone] 07/12/17 09:09 Subjective: Sleeping on CPAP when I came by. Remains on dopamine gtt. Blood sugars better, off D5W. RN reports pt had some "gurgling" when she tried to eat, plans for speech eval. Good UOP. Objective: Vital Signs Temp Pulse Resp BP Pulse Ox 36.6 C 64 20 112/54 L 96 07/12/17 07:00 07/12/17 07:00 07/12/17 07:00 07/12/17 07:00 07/12/17 07:00 Laboratory Results 07/12/17 05:30 07/12/17 05:30 07/11/17 07/12/17 07/13/17 05:59 05:59 05:59 Intake Total 3052 2905 Output Total 250 2350 Balance 2802 555 PT 13.6 SEC (12.0-15.0) 07/10/17 21:31 INR 1.05 (0.83-1.16) 07/10/17 21:31 Physical Exam - Physical Exam General Appearance: other (on CPAP, on dopamine gtt) Neck: other (RIJ triple lumen cath c/d/i) Respiratory: lungs clear Cardiac/Chest: regular rate, rhythm, tachycardia Abdomen: non-tender, soft Pelvic Exam: other (pink in. pink tinged urine) Extremities: other (bruising over lower ext, +ankle edema bilat) Neuro/Psych: other (sleeping currently but per RN a&o x 3 when awake) ICD10 Worksheet Patient Problems: Problems Problem Status Onset Renal insufficiency Acute Serum potassium elevated Acute Chronic Disease Managment/Transitional Care Program Acute Pneumonia Acute
--- NOTE | 2017-07-12 09:13 | PDINTPN ---
Agronomy Professor Progress Note Assessment/Plan: Assessment/plan: * Acute renal failure-improving -per Nephrology * Shock-still on high-dose pressors. No clear etiology at this time. Echocardiogram is normal -wean dopamine as tolerated * Obstructive sleep apnea-on CPAP * Hyperkalemia * Bronchiectasis-stable * Atrial fibrillation * Diabetes-blood sugars controlled Subjective: Resting comfortably on CPAP Objective: Vital Signs Temp Pulse Resp BP Pulse Ox 36.6 C 69 13 115/59 L 96 07/12/17 09:00 07/12/17 09:00 07/12/17 09:00 07/12/17 09:00 07/12/17 09:00 Laboratory Results 07/12/17 05:30 07/12/17 05:30 07/11/17 07/12/17 07/13/17 05:59 05:59 05:59 Intake Total 3052 2905 Output Total 250 2350 575 Balance 2802 555 -575 PT 13.6 SEC (12.0-15.0) 07/10/17 21:31 INR 1.05 (0.83-1.16) 07/10/17 21:31 Laboratory Results 07/12/17 05:30 07/12/17 05:30 07/12/17 05:30 Calcium 8.7 mg/dL mg/dL (8.5 - 10.4) Total Bilirubin 0.5 mg/dL D mg/dL (0.1 - 1.4) AST 51 IU/L H IU/L (14 - 46) ALT 55 IU/L H IU/L (9 - 52) Alkaline Phosphatase 111 IU/L IU/L (38 - 126) Total Protein 6.3 g/dL g/dL (6.3 - 8.2) Albumin 2.9 g/dL L g/dL (3.5 - 5.0) Physical Exam - Physical Exam General Appearance: WD/WN, no apparent distress EENT: PERRL/EOMI Neck: non-tender, full range of motion, supple, normal inspection Respiratory: chest non-tender, lungs clear, normal breath sounds Cardiac/Chest: normal peripheral pulses, regular rate, rhythm Abdomen: normal bowel sounds, non-tender, soft Pelvic Exam: deferred Rectal: deferred Skin: normal color, warm/dry Extremities: normal range of motion, non-tender, normal inspection, normal capillary refill Neuro/Psych: alert ICD10 Worksheet Patient Problems: Problems Problem Status Onset Renal insufficiency Acute Serum potassium elevated Acute Chronic Disease Managment/Transitional Care Program Acute Pneumonia Acute
[2017-07-12] MEDS: ALBUMIN 25% 100 ML IV SCH ×2 (11:30→19:33)
[2017-07-12] MEDS: PREGABALIN 25 MG CAP PO SCH ×3 (14:24→21:04)
[2017-07-12] MEDS: MULTIVITAMINS 1 EACH TAB PO SCH (14:25)
--- NOTE | 2017-07-12 16:00 | HOSPPROG ---
Hospitalist Progress Note Assessment/Plan: * ARF - due to hypovolemia + Bactrim, unclear baseline * Hypotension/shock - still on dopamine gtt -doesn't appear septic, clinically volume up -with hyperkalemia - rule out adrenal insufficiency -eugenio stim test in am * LLE cellulitis -IV Vanco * Hyperkalemia -s/p insulin, Kayexalate - now improved * Bronchiectasis with chronic respiratory failure - 4L * NADIYA/CPAP * Afib -holding metoprolol on pressors * DM II -holding metformin Subjective: No new complaints. Objective: Vital Signs Temp Pulse Resp BP Pulse Ox 35.7 C L 62 11 L 112/57 L 100 07/12/17 13:00 07/12/17 15:00 07/12/17 15:00 07/12/17 15:00 07/12/17 15:00 Laboratory Results 07/12/17 05:30 07/12/17 05:30 07/11/17 07/12/17 07/13/17 05:59 05:59 05:59 Intake Total 3052 2905 Output Total 250 2350 770 Balance 2802 555 -770 PT 13.6 SEC (12.0-15.0) 07/10/17 21:31 INR 1.05 (0.83-1.16) 07/10/17 21:31 CXR - negative d/w Dr. Artis ICU rounds - will check eugenio stim test in am - Physical Exam Constitutional: no apparent distress, appears nourished, not in pain Cardiovascular: regular rate and rhythym, no murmur, rub, or gallop, edema (2+ L >R) Respiratory: no respiratory distress, no rales or rhonchi, clear to auscultation Gastrointestinal: normoactive bowel sounds, soft, non-tender abdomen, no palpable masses Skin: no rashes or abrasions, no fluctuance, no induration Neurologic: AAOx3, sensation intact bilaterally Psychiatric: interacting appropriately, not anxious, not encephalopathic, thought process linear ICD10 Worksheet Patient Problems: Problems Problem Status Onset Renal insufficiency Acute Serum potassium elevated Acute Chronic Disease Managment/Transitional Care Program Acute Pneumonia Acute
[2017-07-13] MEDS: ALBUMIN 25% 100 ML IV SCH ×3 (00:05→12:36)
[2017-07-13 05:19] LABS: % IMMATURE GRANULYOCYTES 0.2 % (0.0-1.1); ABSOLUTE IMMATURE GRANULOCYTES 0.02 10^3/uL (0.00-0.10); ADD DIFF? NO; ADD MORPH? NO; ADD SCAN? NO; ATYPICAL LYMPHOCYTE FLAG 10 (0-99); FRAGMENT RBC FLAG 0 (0-99); HEMATOCRIT 24.3 % (38.0-47.0); HEMOGLOBIN 7.5 g/dL (12.6-16.3); LEFT SHIFT FLG 0 (0-99); LIPEMIA HEMOLYSIS FLAG 80 (0-99); MEAN CELL HEMOGLOBIN 29.6 pg (27.9-34.1); MEAN CELL HEMOGLOBIN CONCENTR. 30.9 g/dL (32.4-36.7); MEAN PLATELET VOLUME 9.3 fL (8.7-11.7); PLATELET CLUMPS FLAG 20 (0-99); PLATELET COUNT 109 10^3/uL (150-400); RED BLOOD CELL COUNT 2.53 10^6/uL (4.18-5.33); RED CELL DISTRIBUTION WIDTH 17.2 % (11.5-15.2)
[2017-07-13 05:31] LABS: ALBUMIN 3.6 g/dL (3.5-5.0); ALKALINE PHOSPHATASE 87 IU/L (38-126); ANION GAP 12 mEq/L (8-16); ASPARTATE AMINOTRANSFERASE 48 IU/L (14-46); BILIRUBIN,TOTAL 0.4 mg/dL (0.1-1.4); CARBON DIOXIDE 27 mEq/l (22-31); CHLORIDE 108 mEq/L (97-110); CREATININE 1.4 mg/dL (0.6-1.0); GLOMERULAR FILTRATION RATE 35; GLUCOSE 109 mg/dL (70-100); POTASSIUM 4.2 mEq/L (3.5-5.2); SODIUM 147 mEq/L (134-144); TOTAL PROTEIN 6.7 g/dL (6.3-8.2)
[2017-07-13] MEDS: LEVOTHYROXINE 50 MCG TAB PO SCH (05:37)
[2017-07-13] MEDS: HEPARIN 5,000 UNIT/0.5 ML SYR SC SCH ×3 (05:37→21:09)
[2017-07-13 05:42] LABS: ALANINE AMINOTRANSFERASE 43 IU/L (9-52); CALCIUM 9.2 mg/dL (8.5-10.4)
[2017-07-13] MEDS ORDERED: COSYNTROPIN 0.25 MG/2 ML SYRINGE IVP ONE (06:00)
[2017-07-13 06:13] LABS: CORTISOL-AM 12.4 ug/dL (4.5-22.7)
--- NOTE | 2017-07-13 09:02 | PDINTPN ---
Hall Cleaner Progress Note Assessment/Plan: Assessment/plan: * Acute renal failure-improving -per Nephrology * Shock-off pressors * Obstructive sleep apnea-on CPAP * Hyperkalemia * Bronchiectasis-stable * Atrial fibrillation * Diabetes-blood sugars controlled * Disposition-if she remains off pressors, okay for transfer to the floor later on today Subjective: Sitting up in chair. Feels comfortable. Denies any breathlessness or chest pain. Objective: Vital Signs Temp Pulse Resp BP Pulse Ox 36.2 C 67 16 103/45 L 97 07/13/17 08:00 07/13/17 08:14 07/13/17 08:14 07/13/17 08:14 07/13/17 08:14 Laboratory Results 07/13/17 05:10 07/13/17 05:10 07/12/17 07/13/17 07/14/17 05:59 05:59 05:59 Intake Total 2905 1234 Output Total 2350 2300 Balance 555 -1066 PT 13.6 SEC (12.0-15.0) 07/10/17 21:31 INR 1.05 (0.83-1.16) 07/10/17 21:31 Physical Exam - Physical Exam General Appearance: WD/WN, alert, no apparent distress EENT: PERRL/EOMI, normal ENT inspection Neck: non-tender, full range of motion, supple, normal inspection Respiratory: chest non-tender, lungs clear, normal breath sounds Cardiac/Chest: normal peripheral pulses, regular rate, rhythm, systolic murmur Peripheral Pulses: 2+: carotid (R), carotid (L), femoral (R), femoral (L), dorsalis-pedis (R), dorsalis-pedis (L) Abdomen: normal bowel sounds, non-tender, soft Pelvic Exam: deferred Rectal: deferred Back: Normal inspection Skin: normal color, warm/dry Lymphatic: no adenopathy Extremities: non-tender, normal inspection, normal capillary refill Neuro/Psych: no motor/sensory deficits, alert, normal mood/affect, oriented x 3 ICD10 Worksheet Patient Problems: Problems Problem Status Onset Renal insufficiency Acute Serum potassium elevated Acute Chronic Disease Managment/Transitional Care Program Acute Pneumonia Acute
--- NOTE | 2017-07-13 09:13 | SOAPPROG ---
SOAP Progress Note Assessment/Plan: Assessment: 1)LAMONT, non-oliguric -suspect combination of Bactrim, diarrhea -unclear baseline Cr (last labs in system were from 2013) -Cr continues to improve with gentle IVF, holding bactrim- down to 1.4 today -TTE shows pulm HTN and likely pre-load dependent -ok to be off IVF, encourage po intake (and water as Na 147 today) 2)HyperK -improved -likely bactrim and LAMONT 3)Hypotension- ?sepsis -off pressors now, looks much better -blood Cx NGTD no fevers, lactate ok -on vanco for possible LE cellulitis -TTE ok LVEF 65%, mod pulm HTN -cortisol pending 4)Pulm HTN 5)Bronchiectasis with chronic 4L O2 requirement 6)recent fall with cellulitis LE 7)NADIYA CPAP at night 8)DM2 metformin on hold 9)mild hyperNa- encourage po fluids, follow I discussed with ICU team pager [phone] 07/13/17 09:13 Subjective: Sitting in chair, looks much better. Denies any diarrhea, sob, n/v. Off dopamine as of this am. Objective: Vital Signs Temp Pulse Resp BP Pulse Ox 36.2 C 67 16 103/45 L 97 07/13/17 08:00 07/13/17 08:14 07/13/17 08:14 07/13/17 08:14 07/13/17 08:14 Laboratory Results 07/13/17 05:10 07/13/17 05:10 07/12/17 07/13/17 07/14/17 05:59 05:59 05:59 Intake Total 2905 1234 Output Total 2350 2300 Balance 555 -1066 PT 13.6 SEC (12.0-15.0) 07/10/17 21:31 INR 1.05 (0.83-1.16) 07/10/17 21:31 Physical Exam - Physical Exam General Appearance: alert, no apparent distress, other (looks much better, off pressors) EENT: other (mm) Neck: supple, other (RIJ triple lumen c.d.i) Respiratory: lungs clear Cardiac/Chest: regular rate, rhythm Abdomen: non-tender, soft Extremities: other (trace LE edema bilat) Neuro/Psych: alert, oriented x 3 ICD10 Worksheet Patient Problems: Problems Problem Status Onset Renal insufficiency Acute Serum potassium elevated Acute Chronic Disease Managment/Transitional Care Program Acute Pneumonia Acute
[2017-07-13] MEDS: MULTIVITAMINS 1 EACH TAB PO SCH (09:40)
[2017-07-13] MEDS: PREGABALIN 25 MG CAP PO SCH ×2 (09:41→20:58)
[2017-07-13] MEDS: METOPROLOL TARTRATE 25 MG TAB PO SCH ×2 (15:54→20:58)
--- NOTE | 2017-07-13 16:54 | HOSPPROG ---
Hospitalist Progress Note Assessment/Plan: * ARF - due to hypovolemia + Bactrim, unclear baseline * Hypotension/shock - dopamine gtt weaned off * LLE cellulitis -doubt MRSA - change to IV ancef * Hyperkalemia -s/p insulin, Kayexalate - now improved * Bronchiectasis with chronic respiratory failure - 4L * NADIYA/CPAP * Afib -now with RVR - resume metoprolol -? anticoag * DM II -holding metformin due to creatinine elevation Subjective: No complaints. Objective: Vital Signs Temp Pulse Resp BP Pulse Ox 36.2 C 117 H 17 136/75 H 96 07/13/17 08:00 07/13/17 15:54 07/13/17 14:00 07/13/17 15:54 07/13/17 14:00 Laboratory Results 07/13/17 05:10 07/13/17 05:10 07/12/17 07/13/17 07/14/17 05:59 05:59 05:59 Intake Total 2905 1234 Output Total 2350 2300 Balance 555 -1066 PT 13.6 SEC (12.0-15.0) 07/10/17 21:31 INR 1.05 (0.83-1.16) 07/10/17 21:31 d/w Dr. Artis ICU rounds - okay for floor today tele reviewed - some rapid afib - Physical Exam Constitutional: no apparent distress, appears nourished, not in pain Cardiovascular: regular rate and rhythym, no murmur, rub, or gallop Respiratory: no respiratory distress, no rales or rhonchi, clear to auscultation Gastrointestinal: normoactive bowel sounds, soft, non-tender abdomen, no palpable masses Skin: no rashes or abrasions, no fluctuance, no induration Neurologic: AAOx3, sensation intact bilaterally Psychiatric: interacting appropriately, not anxious, not encephalopathic, thought process linear ICD10 Worksheet Patient Problems: Problems Problem Status Onset Renal insufficiency Acute Serum potassium elevated Acute Chronic Disease Managment/Transitional Care Program Acute Pneumonia Acute
--- NOTE | 2017-07-13 17:39 | CPEKG ---
Heart Rate: 111 RR Interval: 541 QRSD Interval: 86 QT Interval: 328 QTC Interval: 446 QRS [place]: 80 T Wave [place]: -88 EKG Severity - ABNORMAL ECG - EKG Impression: JUNCTIONAL TACHYCARDIA VERSUS ATRIAL FLUTTER EKG Impression: NONSPECIFIC REPOL ABNORMALITY, DIFFUSE LEADS EKG Impression: COMPARED WITH 07/10/2017, ARRHYTHMIA NOW PRESENT AND REPOLARIZATION ABNORMALITY EKG Impression: NOW PRESENT Electronically Signed By: Baylee Izaguirre 14-Jul-2017 10:44:41
[2017-07-13 17:51] LABS: % IMMATURE GRANULYOCYTES 0.3 % (0.0-1.1); ABSOLUTE IMMATURE GRANULOCYTES 0.03 10^3/uL (0.00-0.10); ADD DIFF? NO; ADD MORPH? NO; ADD SCAN? NO; ATYPICAL LYMPHOCYTE FLAG 10 (0-99); FRAGMENT RBC FLAG 0 (0-99); HEMATOCRIT 27.2 % (38.0-47.0); HEMOGLOBIN 8.4 g/dL (12.6-16.3); LEFT SHIFT FLG 0 (0-99); LIPEMIA HEMOLYSIS FLAG 80 (0-99); MEAN CELL HEMOGLOBIN 30.2 pg (27.9-34.1); MEAN CELL HEMOGLOBIN CONCENTR. 30.9 g/dL (32.4-36.7); MEAN CELL VOLUME 97.8 fL (81.5-99.8); MEAN PLATELET VOLUME 10.1 fL (8.7-11.7); PLATELET CLUMPS FLAG 0 (0-99); PLATELET COUNT 117 10^3/uL (150-400); RED BLOOD CELL COUNT 2.78 10^6/uL (4.18-5.33); RED CELL DISTRIBUTION WIDTH 17.4 % (11.5-15.2)
--- NOTE | 2017-07-13 18:00 | HOSPPROG ---
Hospitalist Progress Note Assessment/Plan: Critical care note: Code antonino called. Patient was getting out chair and suddenly said couldn't breath and passed out. No pulse for 5 secs and had ROSC without intervention. RN noted seizure-like activity? Hit head on bed rail. 87 yo F with cellulitis, treated with and shock, now off pressors. S: she c/o increased cough #Syncopal episode: appeared to be in asystole on tele and then wide-complex junctional rhythm. Not post-ictal. No electrolyte derangements, glucose normal. -DDx: arrhythmia, mucous plug, aspiration vs. vagal with cough. -Trop negative. EKG with min ST depression in V3-v6, more prominent than prior. Consider PE, but on SQH. Hold BB. -repeat EKG this evening (personally reviewed by me) showed Wenkebach. I reviewed EKGs with Dr. Gruber and who agreed and he also d/w Dr. Mota. -transcutaneous pads in place. Restart Dopamine 3mcg. If liz overnight would do transvenous pacer; want to avoid PPM #h/o a fib: junctional tachycardia, retrograde p-waves (personally reviewed by me) -repeat EKG reviewed with Dr. Gruber. Tai #Acute hypoxia: CXR (personally reviewed) increased BL opacities, left effusion. Edema vs aspiration. Echo 07/11 with normal EF, diastolic HF. Afebrile currently. Add Unasyn if fevers. On 4L, which has not changed. Critical care time spent: 60 min spent bedside, reviewing labs, EKG, and d/w Dr. Gruber Objective: Vital Signs Temp Pulse Resp BP Pulse Ox 36.2 C 99 17 116/80 96 07/13/17 08:00 07/13/17 16:00 07/13/17 14:00 07/13/17 16:00 07/13/17 14:00 Laboratory Results 07/13/17 11:35 07/12/17 07/13/17 07/14/17 05:59 05:59 05:59 Intake Total 2905 1234 Output Total 2350 2300 Balance 555 -1066 PT 13.6 SEC (12.0-15.0) 07/10/17 21:31 INR 1.05 (0.83-1.16) 07/10/17 21:31 - Physical Exam Constitutional: no apparent distress Eyes: PERRL Ears, Nose, Mouth, Throat: moist mucous membranes Cardiovascular: regular rate and rhythym Respiratory: rhonchi Gastrointestinal: normoactive bowel sounds, soft, non-tender abdomen Genitourinary: no bladder fullness Skin: warm Musculoskeletal: full muscle strength, other (small hematoma back of head) Neurologic: AAOx3, CN II-XII Intact Psychiatric: interacting appropriately, not encephalopathic ICD10 Worksheet Patient Problems: Problems Problem Status Onset Renal insufficiency Acute Serum potassium elevated Acute Chronic Disease Managment/Transitional Care Program Acute Pneumonia Acute
[2017-07-13 18:22] LABS: ANION GAP 16 mEq/L (8-16); CALCIUM 9.4 mg/dL (8.5-10.4); CARBON DIOXIDE 22 mEq/l (22-31); CHLORIDE 109 mEq/L (97-110); CREATININE 1.1 mg/dL (0.6-1.0); GLOMERULAR FILTRATION RATE 47; GLUCOSE 147 mg/dL (70-100); POTASSIUM 4.7 mEq/L (3.5-5.2); SODIUM 147 mEq/L (134-144)
[2017-07-13 18:24] LABS: TROPONIN I 0.028 ng/mL (0.000-0.034)
--- NOTE | 2017-07-13 21:47 | CPEKG ---
Heart Rate: 92 RR Interval: 652 QRSD Interval: 92 QT Interval: 360 QTC Interval: 446 QRS [place]: 72 T Wave [place]: -22 EKG Severity - ABNORMAL ECG - EKG Impression: ATRIAL FLUTTER, A-RATE 229 EKG Impression: LOW VOLTAGE IN FRONTAL LEADS EKG Impression: COMPARED WITH 07/13/2017 AT 5:38 P.M., VENTRICULAR RATE NOW SLOWER. Electronically Signed By: Baylee Izaguirre 14-Jul-2017 10:43:56
--- NOTE | 2017-07-13 23:17 | PDCODEBLUE ---
Code Blue Note Critical care note: Jeffrey muñiz called. Patient was getting out chair and suddenly said couldn't breath and passed out. No pulse for 5 secs and had ROSC without intervention. RN noted seizure-like activity? Hit head on bed rail. 87 yo F with cellulitis, treated with and shock, now off pressors. S: she c/o increased cough PE: NAD, HEENT: PERRLA, EOMI, CV: RRR, no LE edema Lungs: rhonchi, BL Neuro: 2- 12 intact, answering appropriately, A&Ox3 #Syncopal episode: appeared to have long pause on telemetry. Not post-ictal. No electrolyte derangements, glucose normal. -DDx: arrhythmia, mucous plug, aspiration vs. vagal with cough. -Trop negative. EKG with min ST depression in V3-V6, more prominent than prior. Consider PE, but on SQH. Hold BB. -repeat EKG this evening (personally reviewed by me) showed Wenkebach. I reviewed EKGs with Dr. Gruber and who agreed and he also d/w Dr. Mota. -transcutaneous pads in place. Restart Dopamine 3mcg. If liz overnight would do transvenous pacer; want to avoid PPM #h/o a fib: junctional tachycardia on EKG (personally reviewed by me) -repeat EKG reviewed with Dr. Gruber. #Acute hypoxia: CXR (personally reviewed) increased BL opacities, left effusion. Edema vs aspiration. Echo 07/11 with normal EF, diastolic HF. Not grossly overloaded. Afebrile currently. Add Unasyn if fevers. On 4L, which has not changed. May need lasix if O2 needs increase Critical care time spent: 60 min spent bedside, reviewing labs, EKG, and d/w Dr. Gruber
[2017-07-13 23:24] LABS: TROPONIN I 0.055 ng/mL (0.000-0.034)
[2017-07-14 04:13] LABS: % IMMATURE GRANULYOCYTES 0.3 % (0.0-1.1); ABSOLUTE IMMATURE GRANULOCYTES 0.03 10^3/uL (0.00-0.10); ADD DIFF? NO; ADD MORPH? NO; ADD SCAN? NO; ATYPICAL LYMPHOCYTE FLAG 0 (0-99); FRAGMENT RBC FLAG 0 (0-99); HEMATOCRIT 26.7 % (38.0-47.0); HEMOGLOBIN 8.1 g/dL (12.6-16.3); LEFT SHIFT FLG 0 (0-99); LIPEMIA HEMOLYSIS FLAG 80 (0-99); MEAN CELL HEMOGLOBIN 29.7 pg (27.9-34.1); MEAN CELL HEMOGLOBIN CONCENTR. 30.3 g/dL (32.4-36.7); MEAN CELL VOLUME 97.8 fL (81.5-99.8); MEAN PLATELET VOLUME 9.7 fL (8.7-11.7); PLATELET CLUMPS FLAG 0 (0-99); PLATELET COUNT 125 10^3/uL (150-400); RED BLOOD CELL COUNT 2.73 10^6/uL (4.18-5.33); RED CELL DISTRIBUTION WIDTH 17.3 % (11.5-15.2)
[2017-07-14 04:31] LABS: ALANINE AMINOTRANSFERASE 62 IU/L (9-52); ALKALINE PHOSPHATASE 109 IU/L (38-126); ANION GAP 13 mEq/L (8-16); ASPARTATE AMINOTRANSFERASE 58 IU/L (14-46); BILIRUBIN,TOTAL 0.5 mg/dL (0.1-1.4); CALCIUM 9.5 mg/dL (8.5-10.4); CARBON DIOXIDE 26 mEq/l (22-31); CHLORIDE 110 mEq/L (97-110); GLOMERULAR FILTRATION RATE 52; GLUCOSE 100 mg/dL (70-100); POTASSIUM 4.1 mEq/L (3.5-5.2); SODIUM 149 mEq/L (134-144); TOTAL PROTEIN 6.8 g/dL (6.3-8.2)
[2017-07-14] MEDS: HEPARIN 5,000 UNIT/0.5 ML SYR SC SCH ×2 (06:10→14:23)
[2017-07-14] MEDS: LEVOTHYROXINE 50 MCG TAB PO SCH (06:11)
[2017-07-14] MEDS: D5W 1,000 ML IV SCH (08:34)
[2017-07-14 09:20] LABS: MAGNESIUM 1.8 mg/dL (1.6-2.3)
[2017-07-14 09:28] LABS: TROPONIN I 0.065 ng/mL (0.000-0.034)
[2017-07-14 10:23] LABS: PROCALCITONIN 0.12 ng/mL (0.02-0.10)
--- NOTE | 2017-07-14 11:49 | SOAPPROG ---
SOAP Progress Note Assessment/Plan: Assessment:Plan: LAMONT-resolved -likely due to bactrim effect -good urine output -edema -lytes okay Hyperkalemia-resolved -due to above Hypernatremia-worse -had respiratory event last night and is now NPO -I started some D5W -recheck Na later today, if normalized will stop Respiratory-for swallowing study today 07/14/17 11:46 Subjective: breathing better Objective: Vital Signs Temp Pulse Resp BP Pulse Ox 36.6 C 125 H 16 130/82 H 96 07/14/17 10:00 07/14/17 10:00 07/14/17 10:00 07/14/17 10:00 07/14/17 10:00 Laboratory Results 07/14/17 04:00 07/14/17 04:00 07/13/17 07/14/17 07/15/17 05:59 05:59 05:59 Intake Total 1234 808 Output Total 2300 1525 225 Balance -1066 -717 -225 PT 13.6 SEC (12.0-15.0) 07/10/17 21:31 INR 1.05 (0.83-1.16) 07/10/17 21:31 Physical Exam - Physical Exam General Appearance: alert, no apparent distress, thin EENT: normal ENT inspection Neck: normal inspection Respiratory: decreased breath sounds (throughout), rhonchi, other Cardiac/Chest: regular rate, rhythm, No diastolic murmur, No systolic murmur Abdomen: normal bowel sounds, non-tender, soft, No organomegaly, No hepatomegaly , No splenomegaly Skin: other (bruising on LE's) Extremities: swelling (to knees) Neuro/Psych: no motor/sensory deficits, alert, normal mood/affect ICD10 Worksheet Patient Problems: Problems Problem Status Onset Renal insufficiency Acute Serum potassium elevated Acute Chronic Disease Managment/Transitional Care Program Acute Pneumonia Acute
[2017-07-14] MEDS: PREGABALIN 25 MG CAP PO SCH ×2 (14:13→20:02)
[2017-07-14] MEDS: MULTIVITAMINS 1 EACH TAB PO SCH (14:13)
[2017-07-14] MEDS ORDERED: LACTULOSE 20 GM/30 ML UDCUP PO PRN (14:21)
--- NOTE | 2017-07-14 15:07 | PDINTPN ---
[employer] Progress Note Assessment/Plan: Assessment/plan: 87 F with remote limited episode of afib, admitted 07/10/17 with hypokalemia and LAMONT after recent cellulitis treated with Bactrim. Cellulitis dx/rx after recent fall, the details of whoich are uncertain at the moment. She reported diarrhea ( none this admission) from the bactrim which was thought to be causative of hypovolemia and LAMONT as this improved with IVF and briefly dopamine. Hyperkalemia resolved with HCO3, insulin, D50 in ER (though complicated by hypoglycemia and drop in BP). When she developed relative tachycardia off metoprolol, this was resumed followed by transfer to PCU. On 07/14/17, she had a syncopal episode while transferring to a chair associated with a long sinus pause on tele (reported between 5 and 12 seconds), so was started on dopamine and transferred back to ICU. * Symptomatic sinus pause- possible SSS? Her previous episode of afib was during another remote episode of LAMONT, and was followed on holter monitoring afterwards without recurrence, so anticoag was not started. She has remained on metoprolol for years without difficulty and no known history of other arrythmia. Weaning off dopamine this afternoon for further assessment. Cards following and may need pacer. * Hypoxia- her CXR looks worse today, but her clinical picture, high BNP and low procalcitonin strongly supports edema over infection and I dont think additional abx are indicated at this time. Observe, +/- diuretics if needed * Bronchiectasis- at her baseline O2 requirement * NADIYA- - had some difficulty with CPAP setup last pm, but unrelated to event. Continue to use her home device * LAMONT- unclear baseline, but creatinine down to 1.0 from 2.5 and excellent UOP. * DM- BG controlled * Subjective: Syncopal episode last pm while getting up to chair. Tele revealed sinus pause for 5-12 secs (not clear) followed by Ronald. No CPR or cardiac meds given but started dopamine drip. Feels OK today- does not recall events Objective: Vital Signs Temp Pulse Resp BP Pulse Ox 36.7 C 96 23 H 118/73 96 07/14/17 14:00 07/14/17 14:00 07/14/17 14:00 07/14/17 14:00 07/14/17 14:00 Laboratory Results 07/14/17 04:00 07/14/17 04:00 07/13/17 07/14/17 07/15/17 05:59 05:59 05:59 Intake Total 1234 808 Output Total 9035 1525 225 Balance -1066 -717 -225 PT 13.6 SEC (12.0-15.0) 07/10/17 21:31 INR 1.05 (0.83-1.16) 07/10/17 21:31 Physical Exam - Physical Exam General Appearance: alert, no apparent distress EENT: PERRL/EOMI Neck: supple Respiratory: decreased breath sounds, No respiratory distress, No accessory muscle use Cardiac/Chest: tachycardia, No edema Abdomen: non-tender, soft, No distended Skin: normal color, warm/dry Lymphatic: no adenopathy Extremities: No pedal edema Neuro/Psych: alert, normal mood/affect, oriented x 3 ICD10 Worksheet Patient Problems: Problems Problem Status Onset Renal insufficiency Acute Serum potassium elevated Acute Chronic Disease Managment/Transitional Care Program Acute Pneumonia Acute
[2017-07-14 15:42] LABS: CORTISOL/CREATININE RATIO 27 mcg/g Cr (0.7-85); CREATININE CONCENTRATION 23 mg/dL
--- NOTE | 2017-07-14 16:07 | ASMTCMCOM ---
CM Note CM Note Notes: Spoke to patient and her [id number] regarding the need for SNF Rehab at discharge. She has many friends at [facility] and lives in that neighborhood. [facility] be her 1st choice, [facility] in [place] her 2nd choice. Sent referrals to both facilities. Date Signed: 07/14/2017 04:06 PM Electronically Signed By:Karla Robbins
[2017-07-14] MEDS: SENNOSIDES/DOCUSATE SODIUM TAB PO SCH ×2 (16:12→20:02)
--- NOTE | 2017-07-14 16:57 | HOSPPROG ---
Hospitalist Progress Note Assessment/Plan: * ARF - due to hypovolemia + Bactrim - resolving * Hypotension/shock - dopamine gtt weaned off -eugenio stim test in am * LLE cellulitis -IV ancef * Hyperkalemia -s/p insulin, Kayexalate - now improved * Cardiac pause - 12 seconds -DC metoprolol -may need PCM -cardiology following * Bronchiectasis with chronic respiratory failure - 4L * NADIYA/CPAP * Afib - holding metoprolol -Lovenox - consider change to Eliquis at discharge * DM II -holding metformin due to creatinine elevation -consider restart soon * Possible diastolic CHF - maybe volume up -consider IV lasix -renal following - now on D5W for hypernatremia Subjective: Little memory of event last night. Pause 5-12 seconds with syncope , followed by Lilli Objective: Vital Signs Temp Pulse Resp BP Pulse Ox 36.7 C 68 18 103/52 L 98 07/14/17 16:00 07/14/17 16:00 07/14/17 16:00 07/14/17 16:00 07/14/17 16:00 Laboratory Results 07/14/17 04:00 07/14/17 16:15 07/13/17 07/14/17 07/15/17 05:59 05:59 05:59 Intake Total 1234 808 Output Total 2300 1525 225 Balance -1066 -717 -225 PT 13.6 SEC (12.0-15.0) 07/10/17 21:31 INR 1.05 (0.83-1.16) 07/10/17 21:31 d/w Dr. Kelley regarding plan - await cardiology input tele - currently rapid afib CXR viewed, my personal interpretation is - possible CHF/PNA superimposed on bronchiectasis - Physical Exam Constitutional: no apparent distress, appears nourished, not in pain Cardiovascular: regular rate and rhythym, no murmur, rub, or gallop, edema (1+) Respiratory: no respiratory distress, no rales or rhonchi, clear to auscultation Gastrointestinal: normoactive bowel sounds, soft, non-tender abdomen, no palpable masses Skin: no rashes or abrasions, no fluctuance, no induration Neurologic: AAOx3, sensation intact bilaterally Psychiatric: interacting appropriately, not anxious, not encephalopathic, thought process linear ICD10 Worksheet Patient Problems: Problems Problem Status Onset Renal insufficiency Acute Serum potassium elevated Acute Chronic Disease Managment/Transitional Care Program Acute Pneumonia Acute
--- NOTE | 2017-07-14 17:53 | GCON ---
[f rep st] CONSULTATION CARDIOLOGY CONSULTATION DATE OF CONSULTATION: 07/14/2017 INDICATION: Complete heart block. HISTORY OF PRESENT ILLNESS: The patient is 87 years old. She has no significant cardiovascular his tory. She was admitted to [facility] on the . At the time of admission, she was found to be hypotensive. Her blood pressure on admission was noted to be a 96/48. She was also fo und to be in acute renal failure. Creatinine on admission was 2.5, associated with a BUN of 82. Agarwal bsequently, indices of her renal function have largely normalized. She was thought to be significan tly dehydrated due to recent diarrhea that was triggered by the prescription of antibiotics for a pr obable cellulitis. She has been in the hospital, doing fairly well. Yesterday afternoon/early even ing she developed an episode of transient high-grade AV block. In reviewing the telemetry strips, i t looks as if her baseline rhythm is either an atrial tachycardia or potentially an atypical atrial flutter. In the setting of this atrial arrhythmia she experienced about 10-12 seconds of asystole. This was associated with symptoms of transient loss of consciousness while she was sitting in a julianna ir. In talking to her about this, she has not had similar events in the past. She had been taking metoprolol for some time. She was prescribed 25 mg twice daily, which had been given to her, and wa s given to her last night as well. After her episode of syncope, she was started on dopamine, and r emains on a low-dose of dopamine at 3 mcg/kilo/minute without recurrence of her pauses. She notes t hat she has never had a stroke in the past. During this hospitalization she did have an echocardiog gunnar. That was performed on July 11, which demonstrated a normal ejection fraction with mild LVH , and mild mitral regurgitation, and moderate tricuspid regurgitation with an estimated RVSP of 74.6 mmHg. Overnight her troponins have trended up slightly, peaking at 0.065 at 8:00 this morning PAST MEDICAL HISTORY: 1. Bronchiectasis. This is long standing. She is oxygen dependent. 2. History of type 2 diabetes mellitus. 3. Hypothyroidism. 4. Venous insufficiency. 5. Hypertension. ALLERGIES: Levofloxacin. SOCIAL HISTORY: There is no history of alcohol or tobacco abuse. MEDICATIONS: These are detailed on the chart and not repeated here. REVIEW OF SYSTEMS: A full 10-point review of systems was performed is otherwise unremarkable. LABORATORIES: Pertinent laboratory findings: Her electrocardiogram, which was performed immediatel y following her event yesterday evening demonstrates what appears to be atrial in atypical atrial fl utter with variable conduction, and a ventricular rate of 92 beats per minute. Her chest x-ray from last night demonstrates increased markings and infiltrates bilaterally, especially consolidation of the left base and possibly an effusion. Her white blood cell count is 10.77, which is stable. Hem atocrit is 26.7, and platelet count 125,000, also stable. Sodium was 149, potassium 4.1, BUN 32, cr eatinine 1.0. AST and ALT are 58 and 62. Troponin initially 0.012, subsequently 0.028, 0.055, and 0.065. N terminal proBNP is 15,700. IMPRESSION: The patient is 87 years old. Currently admitted after she was found to be significantl y dehydrated, associated with evidence of shock and hypotension with acute renal insufficiency. Aft er being treated with hydration, it appears that these issues have resolved. On arrival to the hosp ital here, she was in sinus rhythm. However, subsequently has developed what is likely atrial flutt er with variable AV conduction. Atrial tachycardia cannot be excluded. This appears to be asymptom atic. However, yesterday evening she experienced a 12 second pause associated with loss of consciou sness. She experience this event in the setting of a low-dose of metoprolol. Today, on low-dose do pamine she appears to be doing well. Certainly the constellation of findings is consistent with sic k sinus syndrome, and she may very well require permanent pacing. RECOMMENDATIONS: 1. I have written to discontinue her metoprolol. 2. I would like her to stay on dopamine until later this evening. Tomorrow morning I would like to wean and discontinue her dopamine. 3. I would like to observe her off of dopamine and off of all AV soledad agents, specifically to eval uate her heart rate and this arrhythmia, and to see if she has any more pauses. 4. She may very well require permanent pacing in the setting of recurrent pauses or potentially in the setting of a rapid ventricular response of her atrial arrhythmia that would necessitate the use of AV soledad agents for control. 5. At some point here in the near future, we may consider cardioversion and the institution of anti coagulation. Those decisions can be made pending her hospital course. 6. We will follow along with you. /[id number]/MODL
[2017-07-14] MEDS: IPRATROPIUM/ALBUTEROL 3 ML DEYVIAL IH SCH (18:02)
[2017-07-14] MEDS: ENOXAPARIN 60 MG/0.6 ML SYR SC SCH (20:02)
[2017-07-15] MEDS: IPRATROPIUM/ALBUTEROL 3 ML DEYVIAL IH SCH ×5 (00:47→22:10)
[2017-07-15 05:19] LABS: ALBUMIN 3.2 g/dL (3.5-5.0); ANION GAP 11 mEq/L (8-16); CALCIUM 9.4 mg/dL (8.5-10.4); CARBON DIOXIDE 27 mEq/l (22-31); CHLORIDE 106 mEq/L (97-110); CREATININE 0.9 mg/dL (0.6-1.0); GLOMERULAR FILTRATION RATE 59; GLUCOSE 113 mg/dL (70-100); MAGNESIUM 1.8 mg/dL (1.6-2.3); POTASSIUM 3.7 mEq/L (3.5-5.2); SODIUM 144 mEq/L (134-144)
[2017-07-15 06:00] LABS: % IMMATURE GRANULYOCYTES 0.3 % (0.0-1.1); ABSOLUTE IMMATURE GRANULOCYTES 0.03 10^3/uL (0.00-0.10); ABSOLUTE NRBC COUNT 0.02 10^3/uL (0-0.01); ADD DIFF? NO; ADD MORPH? NO; ADD SCAN? NO; ATYPICAL LYMPHOCYTE FLAG 10 (0-99); FRAGMENT RBC FLAG 30 (0-99); HEMATOCRIT 24.2 % (38.0-47.0); HEMOGLOBIN 7.5 g/dL (12.6-16.3); LEFT SHIFT FLG 0 (0-99); LIPEMIA HEMOLYSIS FLAG 80 (0-99); MEAN CELL HEMOGLOBIN 29.9 pg (27.9-34.1); MEAN CELL VOLUME 96.4 fL (81.5-99.8); MEAN PLATELET VOLUME 10.3 fL (8.7-11.7); NRBC-AUTO% 0.2 % (0.0-0.2); PLATELET CLUMPS FLAG 10 (0-99); PLATELET COUNT 148 10^3/uL (150-400); RED BLOOD CELL COUNT 2.51 10^6/uL (4.18-5.33); RED CELL DISTRIBUTION WIDTH 17.5 % (11.5-15.2)
[2017-07-15] MEDS ORDERED: COSYNTROPIN 0.25 MG/2 ML SYRINGE IVP ONE (06:00)
[2017-07-15] MEDS: D5W 1,000 ML IV SCH (06:13)
[2017-07-15] MEDS: LEVOTHYROXINE 50 MCG TAB PO SCH (06:14)
[2017-07-15 06:22] LABS: TROPONIN I 0.076 ng/mL (0.000-0.034)
[2017-07-15] MEDS: ENOXAPARIN 60 MG/0.6 ML SYR SC SCH (08:56)
[2017-07-15] MEDS: PREGABALIN 25 MG CAP PO SCH ×2 (09:36→20:41)
[2017-07-15] MEDS: SENNOSIDES/DOCUSATE SODIUM TAB PO SCH ×3 (09:36→20:44)
[2017-07-15] MEDS: MULTIVITAMINS 1 EACH TAB PO SCH (09:36)
--- NOTE | 2017-07-15 11:35 | CPEKG ---
Heart Rate: 134 RR Interval: 448 P-R Interval: 96 QRSD Interval: 88 QT Interval: 248 QTC Interval: 371 P [place]: 167 QRS [place]: 92 T Wave [place]: 231 EKG Severity - ABNORMAL ECG - EKG Impression: SINUS OR ECTOPIC ATRIAL TACHYCARDIA EKG Impression: CONSIDER RVH W/ SECONDARY REPOL ABNORMALITY EKG Impression: REPOLARIZATION ABNORMALITY, PROB RATE RELATED EKG Impression: COMPARED WITH 13 JUL 2017 AT 21:45, RHYTHM HAS CHANGED, REPOL ABNORMALITIES NOW EKG Impression: NOTED Electronically Signed By: Baylee Izaguirre 15-Jul-2017 19:41:18
[2017-07-15] MEDS: BISACODYL 10 MG SUPP PR PRN (12:00)
--- NOTE | 2017-07-15 12:19 | SOAPPROG ---
KAREN Progress Note Assessment/Plan: Assessment: 1. Persistent atrial flutter. 2. Evidence of sick sinus syndrome with syncope associated with 12 seconds of high-grade AV block. 3. Longstanding bronchiectasis. 4. Possible cellulitis. Plan: At this point she has evidence of rapid ventricular response. Ideally we would rate control her. I would be uncomfortable starting AV soledad agents given her history of transient complete heart block. I think she would benefit most from implantation of a single-chamber pacemaker which point we can initiate rate- controlling medications. This was discussed with her primary team. We may plan to do this tomorrow depending on thoughts regarding her overall infectious disease issues. Some point in the near future, we may consider institution of systemic anticoagulation and church of sinus rhythm depending on her clinical course. 07/15/17 12:19 Subjective: She remains stable overnight. Her dopamine was discontinued at about 3 o'clock in the morning. We have not seen any further cardiac pauses. She has no complaints at the present time. Objective: Vital Signs Temp Pulse Resp BP Pulse Ox 36.7 C 134 H 16 132/76 H 93 07/15/17 12:00 07/15/17 12:00 07/15/17 12:00 07/15/17 12:00 07/15/17 12:00 Laboratory Results 07/15/17 06:00 07/15/17 04:40 07/14/17 07/15/17 07/16/17 05:59 05:59 05:59 Intake Total 808 1373 Output Total 1525 1000 Balance -717 373 PT 13.6 SEC (12.0-15.0) 07/10/17 21:31 INR 1.05 (0.83-1.16) 07/10/17 21:31 Physical Exam - Physical Exam General Appearance: WD/WN, alert Neck: non-tender, full range of motion Respiratory: rales, rhonchi, No respiratory distress, No accessory muscle use, No decreased breath sounds, No crackles Cardiac/Chest: regular rate, rhythm, No edema, No gallop, No JVD Peripheral Pulses: 2+: carotid (R), carotid (L) ICD10 Worksheet Patient Problems: Problems Problem Status Onset Renal insufficiency Acute Serum potassium elevated Acute Chronic Disease Managment/Transitional Care Program Acute Pneumonia Acute
--- NOTE | 2017-07-15 13:20 | PDINTPN ---
[employer]elligence [employer] Supervisor Progress Note Assessment/Plan: Assessment/plan: 87 F with remote limited episode of afib, admitted 07/10/17 with hypokalemia and LAMONT after recent cellulitis treated with Bactrim. Cellulitis dx/rx after recent fall, the details of whoich are uncertain at the moment. She reported diarrhea ( none this admission) from the bactrim which was thought to be causative of hypovolemia and LAMONT as this improved with IVF and briefly dopamine. Hyperkalemia resolved with HCO3, insulin, D50 in ER (though complicated by hypoglycemia and drop in BP). When she developed relative tachycardia off metoprolol, this was resumed followed by transfer to PCU. On 07/14/17, she had a syncopal episode while transferring to a chair associated with a long sinus pause on tele (reported between 5 and 12 seconds), so was started on dopamine and transferred back to ICU. * Symptomatic sinus pause- Consistent with SSS. Off DA for several hours without additional high degree block, but remains in aflutter at 2:1 with rate 130's. Planning pacer as long as infection cleared * Cellulitis- recent presumed clinical diagnosis and has 7 days of abx. Currently afebrile and normal WBC with negative blood culture from 07/11/17. In addition, her procalcitonin was 0.12 on 07/14, suggesting very low likelihood of bacterial infection. I support proceeding with pacer tomorrow. * Hypoxia- her CXR looked worse on 07/14, but her clinical picture, high BNP and low procalcitonin strongly supports edema over infection and I dont think additional abx are indicated at this time. I dont feel diuretics are clearly needed at this point, especially since her i/o's have been negative the last two days (auto-diuresis). * Bronchiectasis- at her baseline O2 requirement * NADIYA- Continue to use her home device * LAMONT- unclear baseline, but creatinine down to 1.0 from 2.5 and excellent UOP. * DM- BG controlled * 07/15/17 13:15 Subjective: Feels well, no complaints Objective: Vital Signs Temp Pulse Resp BP Pulse Ox 36.7 C 134 H 16 132/76 H 93 07/15/17 12:00 07/15/17 12:00 07/15/17 12:00 07/15/17 12:00 07/15/17 12:00 Laboratory Results 07/15/17 06:00 07/15/17 04:40 07/14/17 07/15/17 07/16/17 05:59 05:59 05:59 Intake Total 808 1373 Output Total 1525 1000 Balance -717 373 PT 13.6 SEC (12.0-15.0) 07/10/17 21:31 INR 1.05 (0.83-1.16) 07/10/17 21:31 Physical Exam - Physical Exam General Appearance: WD/WN, alert, no apparent distress EENT: PERRL/EOMI Neck: supple Respiratory: decreased breath sounds, rhonchi (few- at baseline per patient and son at bedside) Cardiac/Chest: tachycardia, No edema Abdomen: normal bowel sounds, non-tender, soft, No distended Skin: normal color, warm/dry Lymphatic: no adenopathy Extremities: pedal edema (trace), other (no evidence of infection, though substantial ecchymoses bilaterally) Neuro/Psych: alert, normal mood/affect, oriented x 3 ICD10 Worksheet Patient Problems: Problems Problem Status Onset Renal insufficiency Acute Serum potassium elevated Acute Chronic Disease Managment/Transitional Care Program Acute Pneumonia Acute
--- NOTE | 2017-07-15 13:29 | HOSPPROG ---
Hospitalist Progress Note Assessment/Plan: * ARF - due to hypovolemia + Bactrim - resolved * Hypotension/shock - dopamine gtt weaned off * ?LLE cellulitis: On IV ancef. No Leukocytosis and unremarkable PC on 07/14 would argue against it. -IV ancef. Would continue through PCM placement * Hyperkalemia -s/p insulin, Kayexalate - now improved * Cardiac pause - 12 seconds -DC metoprolol -cardiology following. Would proceed with PCM tomorrow * Bronchiectasis with chronic respiratory failure - 4L. This is her baseline * NADIYA/CPAP * Afib - holding metoprolol -Lovenox - consider change to Eliquis at discharge * DM II -holding metformin due to creatinine elevation -consider restart soon * Possible diastolic CHF - diuretics PRN. None now * Hypernatremia, renal following. on D5W * Anemia. No signs of active bleeding. Normacytic. Will work up. Subjective: No further cardiac pauses. HR 130's. Afib/Aflutter. No CP or SOB. At baseline O2 requirements. Objective: Vital Signs Temp Pulse Resp BP Pulse Ox 36.7 C 134 H 16 132/76 H 93 07/15/17 12:00 07/15/17 12:00 07/15/17 12:00 07/15/17 12:00 07/15/17 12:00 Laboratory Results 07/15/17 06:00 07/15/17 04:40 07/14/17 07/15/17 07/16/17 05:59 05:59 05:59 Intake Total 808 1373 Output Total 1525 1000 Balance -717 373 PT 13.6 SEC (12.0-15.0) 07/10/17 21:31 INR 1.05 (0.83-1.16) 07/10/17 21:31 - Physical Exam Constitutional: chronically ill appearing Eyes: PERRL, EOMI Cardiovascular: irregularly irregular, No JVD, No edema Respiratory: reduced air movement, rhonchi Gastrointestinal: normoactive bowel sounds, soft, non-tender abdomen Skin: warm Musculoskeletal: generalized weakness Neurologic: AAOx3 Psychiatric: interacting appropriately, not anxious, not encephalopathic ICD10 Worksheet Patient Problems: Problems Problem Status Onset Renal insufficiency Acute Serum potassium elevated Acute Chronic Disease Managment/Transitional Care Program Acute Pneumonia Acute
--- NOTE | 2017-07-15 13:50 | SOAPPROG ---
SOAP Progress Note Assessment/Plan: Assessment: LAMONT resolved atrial flutter/tachycardia Plan: continue therapies Renal signing off avoid Bactrim (trimethaprim) in the future OK to resume metformin dc free water, now she is eating and drinking OK 07/15/17 13:47 07/15/17 13:49 Subjective: feeling better denies CP sob nausea vomiting anorexia still some fatigue spirits good Objective: Vital Signs Temp Pulse Resp BP Pulse Ox 36.7 C 134 H 16 132/76 H 93 07/15/17 12:00 07/15/17 12:00 07/15/17 12:00 07/15/17 12:00 07/15/17 12:00 Laboratory Results 07/15/17 06:00 07/15/17 04:40 07/14/17 07/15/17 07/16/17 05:59 05:59 05:59 Intake Total 808 1373 Output Total 1525 1000 Balance -717 373 PT 13.6 SEC (12.0-15.0) 07/10/17 21:31 INR 1.05 (0.83-1.16) 07/10/17 21:31 Physical Exam - Physical Exam General Appearance: alert, thin Respiratory: No rhonchi, No wheezing Cardiac/Chest: tachycardia, No gallop, No friction rub Abdomen: normal bowel sounds, non-tender, soft Skin: warm/dry Neuro/Psych: alert, normal mood/affect, oriented x 3 ICD10 Worksheet Patient Problems: Problems Problem Status Onset Renal insufficiency Acute Serum potassium elevated Acute Chronic Disease Managment/Transitional Care Program Acute Pneumonia Acute
[2017-07-15] MEDS: metFORMIN HCL 500 MG TAB PO SCH (17:58)
[2017-07-16 05:18] LABS: % IMMATURE GRANULYOCYTES 0.5 % (0.0-1.1); ABSOLUTE IMMATURE GRANULOCYTES 0.05 10^3/uL (0.00-0.10); ABSOLUTE NRBC COUNT 0.03 10^3/uL (0-0.01); ADD DIFF? NO; ADD MORPH? YES; ADD SCAN? NO; ATYPICAL LYMPHOCYTE FLAG 0 (0-99); FRAGMENT RBC FLAG 0 (0-99); LEFT SHIFT FLG 0 (0-99); LIPEMIA HEMOLYSIS FLAG 80 (0-99); MEAN CELL HEMOGLOBIN 30.3 pg (27.9-34.1); MEAN CELL HEMOGLOBIN CONCENTR. 31.3 g/dL (32.4-36.7); MEAN CELL VOLUME 96.8 fL (81.5-99.8); MEAN PLATELET VOLUME 10.5 fL (8.7-11.7); NRBC-AUTO% 0.3 % (0.0-0.2); PLATELET CLUMPS FLAG 0 (0-99); PLATELET COUNT 158 10^3/uL (150-400); RED BLOOD CELL COUNT 1.85 10^6/uL (4.18-5.33); RED CELL DISTRIBUTION WIDTH 17.9 % (11.5-15.2)
[2017-07-16 05:21] LABS: HEMOGLOBIN 5.6 g/dL (12.6-16.3)
[2017-07-16 05:22] LABS: HEMATOCRIT 17.9 % (38.0-47.0)
[2017-07-16 05:27] LABS: ALANINE AMINOTRANSFERASE 23 IU/L (9-52); ALKALINE PHOSPHATASE 79 IU/L (38-126); ANION GAP 10 mEq/L (8-16); ASPARTATE AMINOTRANSFERASE 24 IU/L (14-46); BILIRUBIN,TOTAL 0.3 mg/dL (0.1-1.4); CALCIUM 9.6 mg/dL (8.5-10.4); CARBON DIOXIDE 26 mEq/l (22-31); CHLORIDE 110 mEq/L (97-110); GLOMERULAR FILTRATION RATE 52; GLUCOSE 119 mg/dL (70-100); MAGNESIUM 1.8 mg/dL (1.6-2.3); POTASSIUM 3.7 mEq/L (3.5-5.2); SODIUM 146 mEq/L (134-144); TOTAL PROTEIN 5.8 g/dL (6.3-8.2)
[2017-07-16 05:54] LABS: HYPOCHROMIA 2+; MICROCYTES 1+; PLATELET ESTIMATE ADEQUATE (ADEQ); POLYCHROMASIA 1+
[2017-07-16 05:55] LABS: % SATURATION 14 % (20-55); TOTAL IRON BINDING CAPACITY 261 ug/dL (260-490)
[2017-07-16] MEDS: IPRATROPIUM/ALBUTEROL 3 ML DEYVIAL IH SCH ×3 (05:56→17:16)
[2017-07-16] MEDS ORDERED: DIAZEPAM 5 MG TAB PO ONE (06:00)
[2017-07-16] MEDS ORDERED: diphenhydrAMINE 25 MG CAP PO ONE (06:00)
[2017-07-16] MEDS ORDERED: BACITRACIN IRRIGATION/NS 50,000 UNITS/1,000 ML BTL IRR ONE (06:00)
[2017-07-16] MEDS ORDERED: NS 1,000 ML IV ONE (06:00)
[2017-07-16 06:01] LABS: INR 1.42 (0.83-1.16); PROTIME(PATIENT) 17.3 SEC (12.0-15.0)
[2017-07-16 06:02] LABS: APTT 39.4 SEC (23.0-38.0)
[2017-07-16] MEDS: LEVOTHYROXINE 50 MCG TAB PO SCH (06:52)
[2017-07-16] MEDS: MULTIVITAMINS 1 EACH TAB PO SCH (07:45)
[2017-07-16] MEDS: metFORMIN HCL 500 MG TAB PO SCH ×2 (07:45→17:56)
[2017-07-16] MEDS: PREGABALIN 25 MG CAP PO SCH ×2 (07:45→20:13)
[2017-07-16] MEDS: SENNOSIDES/DOCUSATE SODIUM TAB PO SCH ×2 (07:45→20:13)
--- NOTE | 2017-07-16 09:04 | SOAPPROG ---
KAREN Progress Note Assessment/Plan: Assessment: 1. Persistent atrial flutter. 2. Evidence of sick sinus syndrome with syncope associated with 12 seconds of high-grade AV block. 3. Longstanding bronchiectasis. 4. Possible cellulitis. 5. Anemia. Plan: We will plan for placement of a permanent pacemaker today. Following that procedure, we can institute AV soledad agents likely in the form of diltiazem for rate control. She will be reassessed here in the near future for suitability and possibility of cardioversion. 07/16/17 09:03 Subjective: She has remained stable overnight. Today she has no complaints. She did have a significant drop in her hemoglobin and hematocrit without a clear source. She has received 1 unit of packed red blood cells and is in the process of receiving a 2nd unit. Hemodynamically she has not had any difficulties. She has remained in 2-1 atrial flutter with resting ventricular rates in the 140s. Objective: Vital Signs Temp Pulse Resp BP Pulse Ox 36.7 C 141 H 22 H 134/66 H 100 07/16/17 07:41 07/16/17 07:41 07/16/17 07:41 07/16/17 07:41 07/16/17 07:41 Microbiology 07/11/17 06:40 Blood Culture - Final Blood 07/11/17 06:45 Blood Culture - Final Blood Laboratory Results 07/16/17 04:50 07/16/17 04:50 07/15/17 07/16/17 07/17/17 05:59 05:59 05:59 Intake Total 1373 960 Output Total 1000 250 Balance 373 710 PT 17.3 SEC (12.0-15.0) H 07/16/17 04:50 INR 1.42 (0.83-1.16) H 07/16/17 04:50 Physical Exam - Physical Exam General Appearance: no apparent distress, thin Neck: non-tender Respiratory: crackles, rales, rhonchi, No respiratory distress, No accessory muscle use, No decreased breath sounds Cardiac/Chest: tachycardia, No edema, No gallop, No JVD Peripheral Pulses: 2+: carotid (R), carotid (L) ICD10 Worksheet Patient Problems: Problems Problem Status Onset Renal insufficiency Acute Serum potassium elevated Acute Chronic Disease Managment/Transitional Care Program Acute Pneumonia Acute
[2017-07-16] MEDS ORDERED: MIDAZOLAM 2 MG/2 ML VIAL ONE (09:42)
[2017-07-16] MEDS ORDERED: BUPIVACAINE 0.5% 30 ML SDV ONE (09:42)
[2017-07-16] MEDS ORDERED: fentaNYL 100 MCG/2 ML INJ ONE (09:42)
[2017-07-16] MEDS ORDERED: LIDOCAINE 1% 300 MG/30 ML SDV ONE (09:42)
[2017-07-16] MEDS ORDERED: LIDO/EPI 1% **for epidural** 30 ML SDV ONE (09:42)
[2017-07-16] MEDS ORDERED: IOPAMIDOL (ISOVUE-300) 150 ML BTL ONE (09:43)
--- NOTE | 2017-07-16 13:02 | PDPROPOC ---
Sedation Plan of Care Sedation Plan of Care: vital signs stable, mental status noted, patient educated of risks, benefits, alternatives, patient can tolerate sedation ASA Classification: ASA 2 Planned drugs: fentanyl, midazolam Mallampati Score: Class 2 Mallampati Reference Image: Patient passed 3-3-2 rule?: Yes
--- NOTE | 2017-07-16 13:02 | PDHPUP ---
History & Physical Update H&P update statement: This history and physical update is based on an assessment of the patient which was completed after admission or registration (within 24 hours), but prior to the surgery/procedure. H&P update: H&P reviewed & patient examined, no change in patient's condition since H&P completed
--- NOTE | 2017-07-16 13:30 | PDINTPN ---
Four H Agent Progress Note Assessment/Plan: Assessment/plan: 87 F with remote limited episode of afib, admitted 07/10/17 with hypokalemia and LAMONT after recent cellulitis treated with Bactrim. Cellulitis dx/rx after recent fall, the details of whoich are uncertain at the moment. She reported diarrhea ( none this admission) from the bactrim which was thought to be causative of hypovolemia and LAMONT as this improved with IVF and briefly dopamine. Hyperkalemia resolved with HCO3, insulin, D50 in ER (though complicated by hypoglycemia and drop in BP). When she developed relative tachycardia off metoprolol, this was resumed followed by transfer to PCU. On 07/14/17, she had a syncopal episode while transferring to a chair associated with a long sinus pause on tele (reported between 5 and 12 seconds), so was started on dopamine and transferred back to ICU. * Symptomatic sinus pause in setting of Afib/flutter- Consistent with SSS. For demand pacer today, followed by rate control . HR has been 140's but stable BP. May get CV at later date. * Anmeia- unclear why sudden drop, but high BUN suggest possible GI source. Transfusing RBC and recheck * Cellulitis- Resolved. Recent presumed clinical diagnosis and has 7 days of abx. Currently afebrile and normal WBC with negative blood culture from 07/11/17. In addition, her procalcitonin was 0.12 on 07/14, suggesting very low likelihood of bacterial infection. * Hypoxia- Mild and improving * Bronchiectasis- at her baseline O2 requirement ( 4lpm) * NADIYA- Continue to use her home device * LAMONT- unclear baseline, but creatinine down to 1.0 from 2.5 and excellent UOP. * DM- BG controlled Subjective: feels well. Denies abdominal pain, diarrhea, melena, N/V, ho GIB or GERD or PUD Objective: Vital Signs Temp Pulse Resp BP Pulse Ox 36.7 C 141 H 22 H 134/66 H 100 07/16/17 07:41 07/16/17 07:41 07/16/17 07:41 07/16/17 07:41 07/16/17 07:41 Microbiology 07/11/17 06:40 Blood Culture - Final Blood 07/11/17 06:45 Blood Culture - Final Blood Laboratory Results 07/16/17 04:50 07/16/17 04:50 07/15/17 07/16/17 07/17/17 05:59 05:59 05:59 Intake Total 1373 960 Output Total 1000 250 Balance 373 710 PT 17.3 SEC (12.0-15.0) H 07/16/17 04:50 INR 1.42 (0.83-1.16) H 07/16/17 04:50 Physical Exam - Physical Exam General Appearance: WD/WN, alert, no apparent distress EENT: PERRL/EOMI Neck: supple Respiratory: normal breath sounds, No respiratory distress Cardiac/Chest: tachycardia Abdomen: non-tender, soft, No distended, No guarding, No rebound, No ascites Skin: normal color, warm/dry Lymphatic: no adenopathy Extremities: normal range of motion, No pedal edema Neuro/Psych: alert, normal mood/affect, oriented x 3 ICD10 Worksheet Patient Problems: Problems Problem Status Onset Renal insufficiency Acute Serum potassium elevated Acute Chronic Disease Managment/Transitional Care Program Acute Pneumonia Acute
[2017-07-16] MEDS ORDERED: METOPROLOL TARTRATE 5 MG/5 ML INJ ONE (13:56)
--- NOTE | 2017-07-16 14:49 | CPEKG ---
Heart Rate: 100 RR Interval: 600 QRSD Interval: 84 QT Interval: 300 QTC Interval: 387 QRS [place]: 53 T Wave [place]: 258 EKG Severity - ABNORMAL ECG - EKG Impression: ATRIAL FLUTTER, A-RATE 283 EKG Impression: LOW VOLTAGE IN FRONTAL LEADS EKG Impression: BORDERLINE T ABNORMALITIES, DIFFUSE LEADS EKG Impression: COMPARED WITH 15 JUL 2017, HR SLOWER. REPOLARIZAION ABNORMALITIES IMPROVED Electronically Signed By: Baylee Izaguirre 16-Jul-2017 15:59:07
--- NOTE | 2017-07-16 14:51 | CPIP ---
[f rep st] INVASIVE CARDIAC PROCEDURE DATE OF PROCEDURE: 07/16/2017 INDICATIONS: The patient is 87 years old. Several days ago she experienced an episode of syncope as sociated with objective findings on telemetry of 12 seconds of asystole. She has a history of atrial fibrillation and flutter. PROCEDURE: Implantation of a single-chamber pacemaker. TECHNIQUE: Following informed consent and after the administration of prophylactic antibiotics, the left chest was prepped and draped in the usual sterile fashion. A venogram was performed, identifyin g a widely patent axillary subclavian system. 2% lidocaine was infiltrated in the skin below the lef t clavicle and using a #10 blade, a 3 cm incision was made. Using blunt dissection, the pacemaker po cket was fashioned and an antibiotic-soaked sponge was placed in the pocket. Using modified Selding[place] r technique, access was gained to the axillary vein at the level of the first rib and a 6-Swazi Safe Sheath was placed. Using this sheath, the right ventricular lead was brought to the field and positi oned in the right ventricular apex. The lead was screwed into place and tested. Excellent capture a nd sensing were noted. The sheath was then torn away. The lead was secured to the pacemaker pocket floor using 0 Ethibond. The antibiotic soaked sponge was removed from the pocket. The pocket was ir rigated using antibiotic containing solution. We then applied Katelyn to help control bleeding. The device was brought to the field. The lead was identified by serial number and affixed to the hea shawn according to bar attendant guidelines. The device and the redundant portion of the right ventricu lar lead were then placed in the pocket. The device was then sutured into place using a single 0 boby k suture. The pocket was then closed with 2 layers, initially with a single layer of interrupted sut ure using 2-0 Vicryl and finally 4-0 Stratafix for the skin. Steri-Strips and a dry dressing were ap plied. COMPLICATIONS: None. DISPOSITION: The patient will be recovered in the CVC. She will be returned to the intensive care [facility]. /[id number]/MODL
[2017-07-16] MEDS: PANTOPRAZOLE SODIUM 40 MG in NS 100 ML IV SCH ×2 (16:09→20:13)
--- NOTE | 2017-07-16 17:26 | HOSPPROG ---
Hospitalist Progress Note Assessment/Plan: anemia: c/f gi blood loss given increased bun suspect she will have melena this PM npo p mn for egd in AM- d/w GI iv bid ppi ARF - due to hypovolemia + Bactrim - resolved Hypotension/shock - dopamine gtt weaned off ?LLE cellulitis: On IV ancef. No Leukocytosis and unremarkable PC on 07/14 would argue against it. -IV ancef. Would continue through PCM placement dc cefazolin AM 07/17 Hyperkalemia -s/p insulin, Kayexalate - now improved Cardiac pause - 12 seconds pacer Bronchiectasis with chronic respiratory failure - 4L. This is her baseline NADIYA/CPAP Afib - holding metoprolol AC on hold * DM II -holding metformin due to creatinine elevation -consider restart soon * Possible diastolic CHF - diuretics PRN. None now * Hypernatremia, renal following. on D5W * Anemia. No signs of active bleeding. Normacytic. Will work up. Subjective: case d/w [facility] Objective: Vital Signs Temp Pulse Resp BP Pulse Ox 36.7 C 115 H 16 106/74 100 07/16/17 07:41 07/16/17 16:00 07/16/17 16:00 07/16/17 16:00 07/16/17 16:00 Microbiology 07/11/17 06:40 Blood Culture - Final Blood 07/11/17 06:45 Blood Culture - Final Blood Laboratory Results 07/16/17 04:50 07/16/17 04:50 07/15/17 07/16/17 07/17/17 05:59 05:59 05:59 Intake Total 1373 960 Output Total 1000 250 Balance 373 710 PT 17.3 SEC (12.0-15.0) H 07/16/17 04:50 INR 1.42 (0.83-1.16) H 07/16/17 04:50 - Physical Exam Constitutional: no apparent distress, appears nourished Eyes: PERRL, anicteric sclera Ears, Nose, Mouth, Throat: moist mucous membranes, hearing normal Cardiovascular: regular rate and rhythym, no murmur, rub, or gallop, other ( pacer c/d/i) Respiratory: no respiratory distress, no rales or rhonchi Gastrointestinal: normoactive bowel sounds, no palpable masses Genitourinary: No pink in urethra Skin: warm, normal color Musculoskeletal: full muscle strength, no muscle tenderness Neurologic: AAOx3 ICD10 Worksheet Patient Problems: Problems Problem Status Onset Renal insufficiency Acute Serum potassium elevated Acute Chronic Disease Managment/Transitional Care Program Acute Pneumonia Acute
[2017-07-16] MEDS: DILTIAZEM 30 MG TAB PO SCH ×2 (18:20→20:13)
[2017-07-16 18:46] LABS: HEMOGLOBIN 8.2 g/dL (12.6-16.3)
[2017-07-17 00:12] LABS: HEMATOCRIT 24.7 % (38.0-47.0); HEMOGLOBIN 8.1 g/dL (12.6-16.3)
[2017-07-17] MEDS: IPRATROPIUM/ALBUTEROL 3 ML DEYVIAL IH SCH ×5 (00:14→20:53)
[2017-07-17 04:35] LABS: % IMMATURE GRANULYOCYTES 0.3 % (0.0-1.1); ABSOLUTE IMMATURE GRANULOCYTES 0.04 10^3/uL (0.00-0.10); ABSOLUTE NRBC COUNT 0.06 10^3/uL (0-0.01); ADD DIFF? NO; ADD MORPH? NO; ADD SCAN? NO; ATYPICAL LYMPHOCYTE FLAG 10 (0-99); FRAGMENT RBC FLAG 0 (0-99); HEMATOCRIT 23.6 % (38.0-47.0); HEMOGLOBIN 7.7 g/dL (12.6-16.3); LEFT SHIFT FLG 0 (0-99); LIPEMIA HEMOLYSIS FLAG 80 (0-99); MEAN CELL HEMOGLOBIN 30.3 pg (27.9-34.1); MEAN CELL HEMOGLOBIN CONCENTR. 32.6 g/dL (32.4-36.7); MEAN CELL VOLUME 92.9 fL (81.5-99.8); MEAN PLATELET VOLUME 9.9 fL (8.7-11.7); NRBC-AUTO% 0.5 % (0.0-0.2); PLATELET CLUMPS FLAG 0 (0-99); PLATELET COUNT 212 10^3/uL (150-400); RED BLOOD CELL COUNT 2.54 10^6/uL (4.18-5.33); RED CELL DISTRIBUTION WIDTH 18.2 % (11.5-15.2)
[2017-07-17 04:49] LABS: ALBUMIN 2.8 g/dL (3.5-5.0); ANION GAP 12 mEq/L (8-16); CARBON DIOXIDE 26 mEq/l (22-31); CHLORIDE 113 mEq/L (97-110); CREATININE 0.9 mg/dL (0.6-1.0); GLOMERULAR FILTRATION RATE 59; GLUCOSE 106 mg/dL (70-100); MAGNESIUM 1.7 mg/dL (1.6-2.3); POTASSIUM 3.3 mEq/L (3.5-5.2); SODIUM 151 mEq/L (134-144)
[2017-07-17] MEDS: DILTIAZEM 30 MG TAB PO SCH ×5 (05:08→23:37)
[2017-07-17] MEDS: LEVOTHYROXINE 50 MCG TAB PO SCH (05:08)
[2017-07-17] MEDS ORDERED: POTASSIUM CL 20 MEQ TAB PO ONE (05:14)
[2017-07-17] MEDS ORDERED: MAGNESIUM SULF 1 GM/DEXTROSE 100 ML IV ONE (05:14)
[2017-07-17] MEDS ORDERED: VERAPAMIL 5 MG/2 ML VIAL IVP ONE (08:45)
[2017-07-17] MEDS: PREGABALIN 25 MG CAP PO SCH ×2 (08:49→20:18)
[2017-07-17] MEDS: PANTOPRAZOLE SODIUM 40 MG in NS 100 ML IV SCH ×2 (08:49→20:30)
[2017-07-17] MEDS: metFORMIN HCL 500 MG TAB PO SCH (08:49)
[2017-07-17] MEDS: SENNOSIDES/DOCUSATE SODIUM TAB PO SCH ×2 (08:50→20:18)
[2017-07-17] MEDS: MULTIVITAMINS 1 EACH TAB PO SCH (08:51)
[2017-07-17 09:10] LABS: HEMATOCRIT 25.8 % (38.0-47.0); HEMOGLOBIN 8.4 g/dL (12.6-16.3)
--- NOTE | 2017-07-17 09:13 | HOSPPROG ---
Hospitalist Progress Note Assessment/Plan: anemia: c/f gi blood loss given increased bun egd today surprisingly no melena or hematemesis iv bid ppi ARF - due to hypovolemia + Bactrim - resolved hypernatremia: follow Hypotension/shock - dopamine gtt weaned off ?LLE cellulitis: On IV ancef. No Leukocytosis and unremarkable PC on 07/14 would argue against it. -IV ancef. Would continue through PCM placement dc cefazolin AM 07/17 Hyperkalemia -s/p insulin, Kayexalate - now improved Cardiac pause - 12 seconds pacer Bronchiectasis with chronic respiratory failure - 4L. This is her baseline NADIYA/CPAP Afib - holding metoprolol AC on hold * DM II -holding metformin due to creatinine elevation -consider restart soon * Possible diastolic CHF - diuretics PRN. None now * Hypernatremia, renal following. on D5W * Anemia. No signs of active bleeding. Normacytic. Will work up. Subjective: case d/w dr cormier. no melena or hematemesis overnight. tele: AF ( interp by [place]) Objective: Vital Signs Temp Pulse Resp BP Pulse Ox 36.3 C 75 20 117/92 H 100 07/17/17 07:48 07/17/17 09:01 07/17/17 09:01 07/17/17 09:01 07/17/17 09:01 Microbiology 07/11/17 06:40 Blood Culture - Final Blood 07/11/17 06:45 Blood Culture - Final Blood Laboratory Results 07/17/17 04:20 07/16/17 07/17/17 07/18/17 05:59 05:59 05:59 Intake Total 960 400 Output Total 250 300 Balance 710 100 PT 17.3 SEC (12.0-15.0) H 07/16/17 04:50 INR 1.42 (0.83-1.16) H 07/16/17 04:50 - Physical Exam Constitutional: no apparent distress, appears nourished Eyes: PERRL, anicteric sclera Ears, Nose, Mouth, Throat: moist mucous membranes, hearing normal, ears appear normal Cardiovascular: regular rate and rhythym, no murmur, rub, or gallop, other ( pacer site c/d/i) Respiratory: no respiratory distress, no rales or rhonchi Gastrointestinal: normoactive bowel sounds, soft, non-tender abdomen Genitourinary: No pink in urethra Skin: warm, other (alot of bruising), No normal color Musculoskeletal: full muscle strength, no muscle tenderness Neurologic: AAOx3, sensation intact bilaterally Psychiatric: interacting appropriately, not anxious Lymph, Heme, Immunologic: no cervical LAD ICD10 Worksheet Patient Problems: Problems Problem Status Onset Renal insufficiency Acute Serum potassium elevated Acute Chronic Disease Managment/Transitional Care Program Acute Pneumonia Acute
--- NOTE | 2017-07-17 09:21 | CPEKG ---
Heart Rate: 76 RR Interval: 789 P-R Interval: 144 QRSD Interval: 88 QT Interval: 380 QTC Interval: 428 P [place]: 146 QRS [place]: 46 T Wave [place]: 238 EKG Severity - OTHERWISE NORMAL ECG - EKG Impression: DIFFUSE T ABNL EKG Impression: ATRIAL FLUTTER Electronically Signed By: Baylee Izaguirre 17-Jul-2017 21:37:11
[2017-07-17] MEDS ORDERED: LR 1,000 ML IV ONE (11:50)
--- NOTE | 2017-07-17 12:38 | GCON ---
[f rep st] CONSULTATION REFERRING PHYSICIAN: Dr. Navarro REASON FOR CONSULTATION: Anemia and concern for GI bleeding. CHIEF COMPLAINT: Fatigue. HISTORY OF PRESENT ILLNESS: Briefly, the patient is an 87-year-old female with multiple medical problems who was admitted to the hospital on July 10, 2017 for the evaluation of hyperkalemia and acute kidney injury. She has a past medical history significant for hypothyroidism, diabetes, hypertension, and bronchiectasis for which she is on chronic oxygen. She also has a history of atrial fibrillation and venous insufficiency. She noted that she was having increased leg swelling. She had had a fall. She was being treated with antibiotic therapies for possible cellulitis. In the setting of her cellulitis treatment with antibiotics she developed diarrhea. This led to fatigue. She presented to the emergency room for evaluation. Her hospital course has been notable for a steady decline in her blood counts coupled with an elevation in her BUN/creatinine ratio. She denies any melena or hematemesis, but admits to some mild abdominal discomfort and dyspepsia. She reports no prior history of GI bleeding to her knowledge. She has been tolerating a regular diet. ALLERGIES: To levofloxacin. MEDICATIONS: Home: Metformin, metoprolol, furosemide, Synthroid, multivitamins , and Lyrica. PAST MEDICAL HISTORY: Includes atrial fibrillation, diabetes, bronchiectasis, hypothyroidism, sleep apnea. FAMILY HISTORY: Positive for heart disease. SOCIAL HISTORY: She does not drink, smoke, or use drugs. REVIEW OF SYSTEMS: A complete 10-point review was undertaken with the patient and her family. The pertinent positives and negatives are detailed in the History of Present Illness. PHYSICAL EXAMINATION: GENERAL: This is a chronically ill-appearing female, in no apparent distress. HEENT: Her pupils are equal, round, reactive to light and accommodation. Her sclerae are nonicteric. Her oropharynx is clear. NECK : Supple without lymphadenopathy. HEART: Regular without murmur. She has some left greater than right lower extremity edema. RESPIRATORY: Some reduced air movement and wheezes at the bilateral bases. GI: Normoactive bowel sounds. Soft, nontender abdomen with no hepatosplenomegaly. SKIN: Warm and dry, but there are areas of edema and erythema as well as a chronic ulcer of the left lower extremity. NEURO: Grossly nonfocal. PSYCHIATRIC reveals normal mood and affect. LABORATORY TESTS: Shows a hemoglobin of 8.4 with hematocrit of 25.8, white count of 11.92, platelet count of 212. INR of 1.42. Sodium of 151, potassium of 3.3, chloride of 113, BUN of 59, creatinine of 0.9. IMPRESSION/RECOMMENDATIONS: The patient is a complicated 87-year-old female, who is resolving multiple medical problems at this time. Her hospital course was notable for a steady decline in her hematocrit accompanied by an ongoing elevation in BUN. Her hematocrit fran was 17.9. Given the degree of her anemia, her refractory BUN, despite the lack of melena or hematemesis, there has been concern for gastrointestinal blood losses. At this time I do recommend the patient undergo upper endoscopy to evaluate for the possibility of upper gastrointestinal bleeding. /[id number]/MODL MTDD
--- NOTE | 2017-07-17 13:05 | PDANEPAE ---
ANE Past Medical History - Pulmonary History Hx Oxygen in Use at Home: Yes O2 in Use at Home (L/minute): 4 Hx Sleep Apnea: Yes Sleep Apnea Screening Result - Last Documented: Positive - Endocrine History Hx Diabetes: Yes - Chronic Pain History Chronic Pain: No ANE Review of Systems Review of Systems: - Pacemaker Pacemaker Application Spec: [employer] Pacemaker Model: ASSURITY MRI ANE Patient History - Allergies Allergies/Adverse Reactions: levofloxacin [Levofloxacin] Allergy (Verified 07/10/17 22:00) Rash - Home Medications Home Medications: Metformin HCl [Metformin 1000 mg] 1,000 mg PO BID 01/09/14 [Last Taken 07/10/17 09:00] Metoprolol Tartrate [Lopressor 25 mg (RX)] 25 mg PO BID 01/09/14 [Last Taken 11/25 09:00] Furosemide [Lasix 20 MG (*)] 20 mg PO DAILY 07/10/17 [Last Taken 07/10/17] Levothyroxine [Synthroid 50 mcg (*)] 50 mcg PO DAILY06 07/10/17 [Last Taken 11/25] Multivitamins [Multivitamin (*)] 1 each PO DAILY 07/10/17 [Last Taken 07/10/17] Pregabalin [Lyrica 50mg (*)] 50 mg PO BID 07/10/17 [Last Taken 07/10/17 09:00] - NPO status NPO Since - Liquids (Date): 07/16/17 NPO Since - Liquids (Time): 18:00 NPO Since - Solids (Date): 07/16/17 NPO Since - Solids (Time): 18:00 - Smoking Hx Smoking Status: Never smoked - Alcohol Use Alcohol Use: None ANE Labs/Vital Signs - Labs Result Diagrams: 07/17/17 09:05 07/17/17 04:20 - Vital Signs Blood Pressure: 109/60 Heart Rate: 75 Respiratory Rate: 14 O2 Sat (%): 94 Height: 165.1 cm Weight: 64 kg ANE Physical Exam - Airway Neck exam: decreased ROM Mallampati Score: Class 3 Mouth exam: normal dental/mouth exam - Pulmonary Pulmonary: reduced air movement, expiratory wheeze, inspiratory crackles, respiratory distress - Cardiovascular Cardiovascular: tachycardia - ASA Status ASA Status: IV ANE Anesthesia Plan Anesthesia Plan: MAC
[2017-07-17] MEDS ORDERED: PROPOFOL 200 MG/20 ML VIAL ONE (13:11)
[2017-07-17] MEDS ORDERED: NALOXONE HCL 0.4 MG/ML INJ IVP PRN (13:15)
[2017-07-17] MEDS ORDERED: DEXAMETHASONE 4 MG/ML VIAL IVP PRN (13:15)
--- NOTE | 2017-07-17 13:29 | SUROPNOTE ---
[facility] Operative Report - Surgery EGD Indication: anemia, elevated BUN/Cr, dyspepsia Medication: per anesthesia Complications: none acutely Description of procedure: After informed consent was obtained, the patient was brought to the endo suite. She was placed int he supine position and monitored anesthesia was administered by our anesthesia colleagues. The forward viewing upper endosocpe was advanced through the mouth and to the proximal duodenum ( 2nd portion). Retroflexed views in the gastric cardia were obtained. Findings: 1. normal esophagus 2. large hiatal hernia 3. normal stomach 4. normal duodenum IMPRESSION/RECS: 1. Anemia - no evidence of UGI bleeding - large hiatal hernia - no heme material noted - suspect anemia may be multifactorial - ok to advance diet - defer any additional GI bleeding work-up for now. - if has more clinical clues to suggest bleeding, could consider repeat EGD, colonoscopy, tagged cell, etc - will sign off, call with questions.
--- NOTE | 2017-07-17 13:42 | POSTANESTH ---
Post Anesthetic Evaluation Cardiovascular Status: Normal, Stable Respiratory Status: Similar to Pre-op Cond. Level of Consciousness/Mental Status: Mildly Sleepy, Arousable Pain Control: Adequate, Prn Tx Ordered Nausea/Vomiting Control: Adequate, Prn Tx Ordered Complications Possibly Related to Anesthesia: None Noted
[2017-07-18] MEDS: DILTIAZEM 30 MG TAB PO SCH ×3 (05:21→17:25)
[2017-07-18] MEDS: LEVOTHYROXINE 50 MCG TAB PO SCH (05:21)
[2017-07-18 05:45] LABS: ALBUMIN 2.7 g/dL (3.5-5.0); ANION GAP 10 mEq/L (8-16); CALCIUM 8.9 mg/dL (8.5-10.4); CARBON DIOXIDE 27 mEq/l (22-31); CHLORIDE 115 mEq/L (97-110); GLOMERULAR FILTRATION RATE 52; GLUCOSE 101 mg/dL (70-100); MAGNESIUM 2.1 mg/dL (1.6-2.3); POTASSIUM 3.5 mEq/L (3.5-5.2); SODIUM 152 mEq/L (134-144)
[2017-07-18] MEDS: IPRATROPIUM/ALBUTEROL 3 ML DEYVIAL IH SCH ×4 (05:56→23:45)
[2017-07-18] MEDS ORDERED: 1/2 NS 1,000 ML IV SCH (09:15)
--- NOTE | 2017-07-18 09:32 | HOSPPROG ---
Hospitalist Progress Note Assessment/Plan: anemia: no source of or evidence of bleeding on egd hct stable no further workup dc ppi ARF - due to hypovolemia + Bactrim - resolved hypernatremia: start 1/2 ns repeat at 1 pm Hypotension/shock resolved ?LLE cellulitis: probably never had cellulitis abx dc'd yesterday Hyperkalemia -s/p insulin, Kayexalate - now improved Cardiac pause - 12 seconds pacer Bronchiectasis with chronic respiratory failure - 4L. This is her baseline NADIYA/CPAP Afib - holding metoprolol AC on hold will discuss restarting AC w cardiology today DM II -holding metformin due to creatinine elevation -consider restart soon blood sugars at goal on no meds dispo: will needs snf soon Subjective: case d/w dr marcus. tele: some irregularity (interp by me) Objective: Vital Signs Temp Pulse Resp BP Pulse Ox 36.7 C 84 16 111/56 L 92 07/18/17 04:00 07/18/17 05:57 07/18/17 05:57 07/18/17 04:00 07/18/17 05:57 Laboratory Results 07/17/17 09:05 07/18/17 05:20 07/17/17 07/18/17 07/19/17 05:59 05:59 05:59 Intake Total 400 838 Output Total 300 Balance 100 838 PT 17.3 SEC (12.0-15.0) H 07/16/17 04:50 INR 1.42 (0.83-1.16) H 07/16/17 04:50 - Physical Exam Constitutional: no apparent distress, appears nourished Eyes: PERRL, anicteric sclera Ears, Nose, Mouth, Throat: moist mucous membranes, hearing normal Cardiovascular: regular rate and rhythym, no murmur, rub, or gallop, No irregularly irregular Respiratory: no respiratory distress, no rales or rhonchi Gastrointestinal: normoactive bowel sounds, soft, non-tender abdomen Genitourinary: no bladder fullness, No pink in urethra Skin: warm, normal color Musculoskeletal: full muscle strength, no muscle tenderness Neurologic: AAOx3 ICD10 Worksheet Patient Problems: Problems Problem Status Onset Renal insufficiency Acute Serum potassium elevated Acute Chronic Disease Managment/Transitional Care Program Acute Pneumonia Acute
[2017-07-18] MEDS: PREGABALIN 25 MG CAP PO SCH ×2 (09:38→20:37)
[2017-07-18] MEDS: MULTIVITAMINS 1 EACH TAB PO SCH (09:38)
[2017-07-18] MEDS: SENNOSIDES/DOCUSATE SODIUM TAB PO SCH ×3 (09:39→20:31)
[2017-07-18] MEDS: PANTOPRAZOLE SODIUM 40 MG in NS 100 ML IV SCH (09:40)
--- NOTE | 2017-07-18 10:03 | SOAPPROG ---
SOAP Progress Note Assessment/Plan: Assessment: Cardiology ([facility] [place] ) 1. Chronic atrial flutter. Rate controlled on short acting diltiazem 45 mg q6h. Frequent PVCs this am. CHADS-VASc = 3. Was not on anticoagulation coming in the hospital. Has previously been on warfarin years ago for paroxysmal afib but this was discontinued following prolonged EKG monitoring w/o recurrence of arrhythmia. 2. 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 3. ARF. Serum Cr 2.5 on admission, now normalized. 4. Anemia. S/p 2 units PRBCs. EGD negative for bledding source. 5. Hypotension, resolved. 6. Hypernatremia. Treated w/ half normal saline. 7. Bronchietasis/ chronic hypoxemic resp. failure. Plan: 1. Resume lovenox full anticoagulation today. We discussed transitioning to oral anticoagulation w/ Pradaxa (specifically due to reversibility agent) in a few days. 2. Continue short acting diltiazem, likely to transition to long-acting form soon pending clinical course. 3. Routine follow up with [facility] for pacemaker interrogations. Subjective: No cardiovascular complaints today. Denies fever/chills. Left pectoral pocket is non-tender, non-painful. Objective: Vital Signs Temp Pulse Resp BP Pulse Ox 36.7 C 84 16 111/56 L 92 07/18/17 04:00 07/18/17 05:57 07/18/17 05:57 07/18/17 04:00 07/18/17 05:57 Laboratory Results 07/17/17 09:05 07/18/17 05:20 07/17/17 07/18/17 07/19/17 05:59 05:59 05:59 Intake Total 400 838 Output Total 300 Balance 100 838 PT 17.3 SEC (12.0-15.0) H 07/16/17 04:50 INR 1.42 (0.83-1.16) H 07/16/17 04:50 Physical Exam - Physical Exam General Appearance: WD/WN, alert, no apparent distress Respiratory: decreased breath sounds, crackles (bases bilaterally), No normal breath sounds Cardiac/Chest: normal peripheral pulses, regular rate, rhythm, edema (mild L>R) , extra beats, No systolic murmur Neuro/Psych: no motor/sensory deficits, alert, normal mood/affect, oriented x 3 ICD10 Worksheet Patient Problems: Problems Problem Status Onset Renal insufficiency Acute Serum potassium elevated Acute Chronic Disease Managment/Transitional Care Program Acute Pneumonia Acute
[2017-07-18 13:45] LABS: ANION GAP 10 mEq/L (8-16); CALCIUM 8.9 mg/dL (8.5-10.4); CARBON DIOXIDE 26 mEq/l (22-31); CHLORIDE 114 mEq/L (97-110); GLOMERULAR FILTRATION RATE 52; GLUCOSE 135 mg/dL (70-100); POTASSIUM 3.4 mEq/L (3.5-5.2); SODIUM 150 mEq/L (134-144)
[2017-07-18] MEDS: ENOXAPARIN 60 MG/0.6 ML SYR SC SCH (20:36)
[2017-07-19] MEDS: DILTIAZEM 30 MG TAB PO SCH ×2 (00:48→06:22)
[2017-07-19] MEDS: LEVOTHYROXINE 50 MCG TAB PO SCH (06:22)
[2017-07-19 06:49] LABS: ALBUMIN 2.9 g/dL (3.5-5.0); ANION GAP 12 mEq/L (8-16); CALCIUM 8.4 mg/dL (8.5-10.4); CARBON DIOXIDE 26 mEq/l (22-31); CHLORIDE 116 mEq/L (97-110); CREATININE 0.9 mg/dL (0.6-1.0); GLOMERULAR FILTRATION RATE 59; GLUCOSE 108 mg/dL (70-100); MAGNESIUM 1.9 mg/dL (1.6-2.3); POTASSIUM 3.3 mEq/L (3.5-5.2); SODIUM 154 mEq/L (134-144)
[2017-07-19] MEDS: IPRATROPIUM/ALBUTEROL 3 ML DEYVIAL IH SCH ×4 (06:58→22:55)
[2017-07-19] MEDS: ENOXAPARIN 60 MG/0.6 ML SYR SC SCH ×2 (08:49→20:15)
[2017-07-19] MEDS: MULTIVITAMINS 1 EACH TAB PO SCH (08:49)
[2017-07-19] MEDS: PREGABALIN 25 MG CAP PO SCH ×2 (08:49→20:15)
[2017-07-19] MEDS: SENNOSIDES/DOCUSATE SODIUM TAB PO SCH ×2 (08:50→21:38)
--- NOTE | 2017-07-19 09:06 | SOAPPROG ---
KAREN Progress Note Assessment/Plan: Assessment: 1. Persistent atrial flutter. 2. Evidence of sick sinus syndrome with syncope associated with 12 seconds of high-grade AV block. Status post single-chamber pacemaker. 3. Longstanding bronchiectasis. 4. Possible cellulitis. 5. Anemia. 6. Hypernatremia. Plan: 1. I stopped her short-acting diltiazem. 2. She was started on diltiazem CD 180 mg daily. 3. She continues to do well on Lovenox with no indications of bleeding she can be transitioned over to oral anticoagulation. I would favor Eliquis 2.5 mg twice daily. 4. We will sign off for now. Please re-consult if needed. 07/19/17 09:04 Subjective: Today, she has no specific complaints. She was started on systemic anticoagulation with Lovenox yesterday in light of her atrial arrhythmias. Heart rate has been nicely controlled. Objective: Vital Signs Temp Pulse Resp BP Pulse Ox 35.8 C L 76 13 112/64 84 L 07/19/17 07:37 07/19/17 07:37 07/19/17 07:37 07/19/17 07:37 07/19/17 08:38 Laboratory Results 07/17/17 09:05 07/19/17 06:20 07/18/17 07/19/17 07/20/17 05:59 05:59 05:59 Intake Total 838 1600 Output Total 250 Balance 838 1350 PT 17.3 SEC (12.0-15.0) H 07/16/17 04:50 INR 1.42 (0.83-1.16) H 07/16/17 04:50 Physical Exam - Physical Exam General Appearance: no apparent distress, thin Neck: non-tender Respiratory: rhonchi, No decreased breath sounds, No crackles, No rales Cardiac/Chest: irregularly irregular, No edema Peripheral Pulses: 2+: carotid (R), carotid (L) ICD10 Worksheet Patient Problems: Problems Problem Status Onset Renal insufficiency Acute Serum potassium elevated Acute Chronic Disease Managment/Transitional Care Program Acute Pneumonia Acute
[2017-07-19] MEDS: DILTIAZEM CD 180 MG CAP PO SCH (12:22)
[2017-07-19 13:45] LABS: HEMATOCRIT 26.9 % (38.0-47.0); HEMOGLOBIN 8.2 g/dL (12.6-16.3); MEAN CELL HEMOGLOBIN 30.7 pg (27.9-34.1); MEAN CELL HEMOGLOBIN CONCENTR. 30.5 g/dL (32.4-36.7); MEAN CELL VOLUME 100.7 fL (81.5-99.8); RED BLOOD CELL COUNT 2.67 10^6/uL (4.18-5.33); RED CELL DISTRIBUTION WIDTH 19.9 % (11.5-15.2)
[2017-07-19] MEDS ORDERED: 1/2 NS 1,000 ML IV SCH (14:00)
[2017-07-19] MEDS: D5W 1,000 ML IV SCH (15:31)
--- NOTE | 2017-07-19 16:05 | HOSPPROG ---
Hospitalist Progress Note Assessment/Plan: anemia: no source of or evidence of bleeding on egd hct stable no further workup dc ppi ARF - due to hypovolemia + Bactrim - resolved hypernatremia: progressive despite 1/2 ns start d5w Hypotension/shock resolved ?LLE cellulitis: probably never had cellulitis abx dc'd yesterday Hyperkalemia -s/p insulin, Kayexalate - now improved Cardiac pause - 12 seconds pacer Bronchiectasis with chronic respiratory failure - 4L. This is her baseline NADIYA/CPAP Afib - holding metoprolol AC on hold will discuss restarting AC w cardiology today DM II -holding metformin due to creatinine elevation -consider restart soon blood sugars at goal on no meds dispo: will need snf soon Subjective: case d/w dr marcus Objective: Vital Signs Temp Pulse Resp BP Pulse Ox 36.3 C 72 14 111/57 L 92 07/19/17 11:16 07/19/17 11:24 07/19/17 11:24 07/19/17 11:16 07/19/17 11:24 Laboratory Results 07/19/17 13:35 07/19/17 06:20 07/18/17 07/19/17 07/20/17 05:59 05:59 05:59 Intake Total 838 1600 Output Total 250 Balance 838 1350 PT 17.3 SEC (12.0-15.0) H 07/16/17 04:50 INR 1.42 (0.83-1.16) H 07/16/17 04:50 - Physical Exam Constitutional: no apparent distress, appears nourished Eyes: PERRL, anicteric sclera Ears, Nose, Mouth, Throat: moist mucous membranes, hearing normal Cardiovascular: regular rate and rhythym, no murmur, rub, or gallop Respiratory: no respiratory distress, no rales or rhonchi Gastrointestinal: normoactive bowel sounds, soft, non-tender abdomen Genitourinary: No pink in urethra Skin: warm, normal color Musculoskeletal: full muscle strength, no muscle tenderness Neurologic: AAOx3 ICD10 Worksheet Patient Problems: Problems Problem Status Onset Renal insufficiency Acute Serum potassium elevated Acute Chronic Disease Managment/Transitional Care Program Acute Pneumonia Acute
--- NOTE | 2017-07-19 17:04 | ASMTCMCOM ---
CM Note CM Note Notes: Referrals were sent to [facility] and [facility] does not have any beds.Shannon from [facility] states they accept patient but will need updates since patient had code blue episode yesterday. Patient may need to have a pacemaker placed. Faxed Shannon new updates from yesterday and today. CM will follow. Date Signed: 07/15/2017 02:36 PM Electronically Signed By:Sima Chavez
--- NOTE | 2017-07-19 17:05 | ASMTCMCOM ---
CM Note CM Note Notes: Patient is getting her pacemaker today. D/C plan continues to be [facility]. CM will follow. Date Signed: 07/16/2017 02:50 PM Electronically Signed By:Sima Chavez
--- NOTE | 2017-07-19 17:08 | ASMTCMCOM ---
CM Note CM Note Notes: Plan continues to be for patient to DC to [facility]. Date Signed: 07/19/2017 02:28 PM Electronically Signed By:Karla Robbins
[2017-07-20] MEDS: D5W 1,000 ML IV SCH (04:36)
[2017-07-20 04:57] LABS: HEMATOCRIT 21.7 % (38.0-47.0); MEAN CELL HEMOGLOBIN 30.6 pg (27.9-34.1); MEAN CELL HEMOGLOBIN CONCENTR. 30.4 g/dL (32.4-36.7); MEAN CELL VOLUME 100.5 fL (81.5-99.8); RED BLOOD CELL COUNT 2.16 10^6/uL (4.18-5.33); RED CELL DISTRIBUTION WIDTH 19.7 % (11.5-15.2)
[2017-07-20 04:59] LABS: HEMOGLOBIN 6.6 g/dL (12.6-16.3)
[2017-07-20 05:11] LABS: ALBUMIN 2.6 g/dL (3.5-5.0); ANION GAP 9 mEq/L (8-16); CALCIUM 8.3 mg/dL (8.5-10.4); CARBON DIOXIDE 24 mEq/l (22-31); CHLORIDE 111 mEq/L (97-110); CREATININE 0.8 mg/dL (0.6-1.0); GLOMERULAR FILTRATION RATE > 60; GLUCOSE 126 mg/dL (70-100); MAGNESIUM 1.9 mg/dL (1.6-2.3); SODIUM 144 mEq/L (134-144)
[2017-07-20] MEDS: IPRATROPIUM/ALBUTEROL 3 ML DEYVIAL IH SCH ×3 (05:51→17:56)
--- NOTE | 2017-07-20 08:26 | HOSPPROG ---
Hospitalist Progress Note Assessment/Plan: 87-year-old female with a 9 characterized anemia presumed to be of GI bleeding though no for meds and this is found. anemia: no source of or evidence of bleeding on egd - Hemoglobin fell to 6 point 6 today and she will be transfused with 2 units. Haptoglobin is pending reticular count is appropriate. - Recheck and follow the hemoglobin. ARF - due to hypovolemia + Bactrim - resolved hypernatremia: progressive despite 1/2 ns start d5w Hypotension/shock resolved ?LLE cellulitis: probably never had cellulitis abx dc'd yesterday Hyperkalemia -s/p insulin, Kayexalate - now improved Cardiac pause - 12 seconds pacer Bronchiectasis with chronic respiratory failure - 4L. This is her baseline -NADIYA/CPAP - She sees Dr. Rafita Williamson. Afib - holding metoprolol AC on hold will discuss restarting AC w cardiology today DM II -holding metformin due to creatinine elevation -consider restart soon blood sugars at goal on no meds Subjective: No complaints of nausea vomiting abdominal pain or melena. Denies chest pain or shortness of breath Objective: Vital Signs Temp Pulse Resp BP Pulse Ox 36.8 C 74 14 122/73 H 98 07/20/17 04:00 07/20/17 04:00 07/20/17 04:00 07/20/17 04:00 07/20/17 04:00 Laboratory Results 07/20/17 04:30 07/20/17 04:30 07/19/17 07/20/17 07/21/17 05:59 05:59 05:59 Intake Total 1600 450 Output Total 250 Balance 1350 450 PT 17.3 SEC (12.0-15.0) H 07/16/17 04:50 INR 1.42 (0.83-1.16) H 07/16/17 04:50 Laboratory Tests 07/16/17 07/17/17 07/17/17 04:50 04:20 09:05 Hgb 7.7 L 8.4 L INR 1.42 H Potassium Albumin 07/19/17 07/19/17 07/20/17 06:20 13:35 04:30 Hgb 8.2 L INR Potassium 3.3 L 3.0 L Albumin 2.6 L 09/11/17 04:30 Hgb 6.6 L INR Potassium Albumin - Time Spent With Patient Time Spent with Patient: greater than 35 minutes Time Spent with Patient: Greater than 35 minutes spent on this patients care, greater than 50% of time spent counseling, educating, and coordinating care regarding the above mentioned plan. - Pending Discharge Pending Discharge Within 24 Hours: No Pending Discharge Within 48 Hours: No - Physical Exam Constitutional: no apparent distress Eyes: PERRL, anicteric sclera Ears, Nose, Mouth, Throat: moist mucous membranes, hearing normal Cardiovascular: regular rate and rhythym Respiratory: no respiratory distress, no rales or rhonchi Gastrointestinal: normoactive bowel sounds, soft, non-tender abdomen, no palpable masses Genitourinary: no bladder fullness Skin: warm Musculoskeletal: generalized weakness Neurologic: AAOx3, CN II-XII Intact Psychiatric: interacting appropriately ICD10 Worksheet Patient Problems: Problems Problem Status Onset Pneumonia Acute Chronic Disease Managment/Transitional Care Program Acute Renal insufficiency Acute Serum potassium elevated Acute
[2017-07-20 09:56] LABS: HEMATOCRIT 21.9 % (38.0-47.0)
[2017-07-20] MEDS: DILTIAZEM CD 180 MG CAP PO SCH (09:59)
[2017-07-20] MEDS: LEVOTHYROXINE 50 MCG TAB PO SCH (09:59)
[2017-07-20] MEDS: MULTIVITAMINS 1 EACH TAB PO SCH (09:59)
[2017-07-20] MEDS: PREGABALIN 25 MG CAP PO SCH ×2 (10:00→20:23)
[2017-07-20] MEDS: SENNOSIDES/DOCUSATE SODIUM TAB PO SCH ×2 (10:00→20:23)
[2017-07-20] MEDS: ENOXAPARIN 60 MG/0.6 ML SYR SC SCH (10:01)
[2017-07-20 10:05] LABS: HEMOGLOBIN 6.7 g/dL (12.6-16.3)
[2017-07-21] MEDS: IPRATROPIUM/ALBUTEROL 3 ML DEYVIAL IH SCH ×5 (00:16→23:31)
[2017-07-21 04:44] LABS: HEMATOCRIT 31.1 % (38.0-47.0); HEMOGLOBIN 10.1 g/dL (12.6-16.3); MEAN CELL HEMOGLOBIN 30.3 pg (27.9-34.1); MEAN CELL HEMOGLOBIN CONCENTR. 32.5 g/dL (32.4-36.7); MEAN CELL VOLUME 93.4 fL (81.5-99.8); RED BLOOD CELL COUNT 3.33 10^6/uL (4.18-5.33)
[2017-07-21 04:50] LABS: RED CELL DISTRIBUTION WIDTH 20.2 % (11.5-15.2)
[2017-07-21 04:56] LABS: ALBUMIN 2.7 g/dL (3.5-5.0); ANION GAP 9 mEq/L (8-16); CALCIUM 8.4 mg/dL (8.5-10.4); CARBON DIOXIDE 24 mEq/l (22-31); CHLORIDE 109 mEq/L (97-110); CREATININE 0.8 mg/dL (0.6-1.0); GLOMERULAR FILTRATION RATE > 60; GLUCOSE 116 mg/dL (70-100); MAGNESIUM 1.9 mg/dL (1.6-2.3); POTASSIUM 3.5 mEq/L (3.5-5.2); SODIUM 142 mEq/L (134-144)
[2017-07-21] MEDS: LEVOTHYROXINE 50 MCG TAB PO SCH (07:13)
[2017-07-21] MEDS: PREGABALIN 25 MG CAP PO SCH ×2 (10:46→20:51)
[2017-07-21] MEDS: SENNOSIDES/DOCUSATE SODIUM TAB PO SCH ×2 (10:46→21:03)
[2017-07-21] MEDS: DILTIAZEM CD 180 MG CAP PO SCH (10:47)
[2017-07-21] MEDS: MULTIVITAMINS 1 EACH TAB PO SCH (10:47)
--- NOTE | 2017-07-21 10:55 | HOSPPROG ---
Hospitalist Progress Note Assessment/Plan: 87-year-old female with an anemia of on known source. - Anemia: No source or evidence for bleeding. EGD on 07/17 showed no signs of bleeding and a normal esophagus stomach and duodenum. Plan: Stools for guaiac. Hemoglobin is currently 10.0 post 2 units PRBC - Acute renal failure: Due to hypovolemia plus probably Bactrim. This is now resolved. - Peripheral edema: Possibly secondary to CHF with diastolic dysfunction. Echo on this hospitalization shows an EF of 65% with diastolic dysfunction and mild MR and dilated left atrium with pulmonary hypertension. Patient will be right sided pressure dependent and thus cannot be aggressively diuresed to a low JVD. Plan: Gentle diuresis to remove excess fluid. - Chronic respiratory failure with history of bronchiectasis. She is currently at her baseline of 3-4 L O2 per minute -OSAS/CPAP In use during hospitalization and functioning well - sees Dr. Rafita Williamson. - atrial fibrillation now in a controlled rate: She is status post pacemaker placement which is functioning well. Rate control with diltiazem and anticoagulation with Lovenox 60 mg twice daily. Plan: Continue current treatment. - Diabetes mellitus: Holding metformin and covering with SSI as needed. - Severe protein caloric malnutrition: Albumin 2.7. Will start calorie counts. Note that the patient had a swallowing evaluation which showed aspiration with large volumes of thin liquids. She needs to eat slowly and take small sips. Her daughter is bringing food in from the outside. - Pacemaker placement: Pacer placed for sick sinus syndrome and a 12 second pause. Plan: Gentle diuresis to remove excess fluid ; recheck a chest x-ray and respiratory function; maintain good rate control with diltiazem and continue full-dose anticoagulation for atrial fibrillation. - PT and OT for rehabilitation. - Stools checked for blood and of hemoglobin falls then probable colonoscopy and possible tagged red cell scan. Time 45 minutes: Subjective: Reports she feels weaker today. She walked very little yesterday and continues to feel weak and tired. She dislikes the food here in the hospital on the daughters bring her food. No nausea but she has very little appetite. Has not moved her bowels significantly. Objective: Vital Signs Temp Pulse Resp BP Pulse Ox 36.3 C 85 17 92/63 L 96 07/21/17 08:00 07/21/17 08:00 07/21/17 08:00 07/21/17 08:00 07/21/17 08:00 Laboratory Results 07/21/17 04:05 07/21/17 04:05 07/20/17 07/21/17 07/22/17 05:59 05:59 05:59 Intake Total 450 2245 Balance 450 2245 PT 17.3 SEC (12.0-15.0) H 07/16/17 04:50 INR 1.42 (0.83-1.16) H 07/16/17 04:50 - Time Spent With Patient Time Spent with Patient: greater than 35 minutes Time Spent with Patient: Greater than 35 minutes spent on this patients care, greater than 50% of time spent counseling, educating, and coordinating care regarding the above mentioned plan. - Pending Discharge Pending Discharge Within 24 Hours: No Pending Discharge Within 48 Hours: No - Physical Exam Constitutional: no apparent distress, chronically ill appearing Eyes: PERRL, anicteric sclera Ears, Nose, Mouth, Throat: moist mucous membranes, hearing normal Cardiovascular: systolic murmur, irregularly irregular, edema ( 3 +peripheral edema. Soft nontender easily pitting without signs of cellulitis) Respiratory: reduced air movement, bronchial breath sounds, rhonchi Gastrointestinal: normoactive bowel sounds, soft, non-tender abdomen, no palpable masses, other ( Distended in apparent) Genitourinary: no bladder fullness Skin: warm Musculoskeletal: generalized weakness Neurologic: AAOx3, CN II-XII Intact Psychiatric: interacting appropriately ICD10 Worksheet Patient Problems: Problems Problem Status Onset Renal insufficiency Acute Serum potassium elevated Acute Chronic Disease Managment/Transitional Care Program Acute Pneumonia Acute
[2017-07-21] MEDS: POTASSIUM CL 20 MEQ/15 ML UDCUP PO SCH ×2 (13:15→20:51)
[2017-07-21] MEDS: FUROSEMIDE 40 MG/4 ML VIAL IVP SCH ×2 (13:16→17:08)
[2017-07-21] MEDS ORDERED: PARAMETERS MISC PRN (13:54)
[2017-07-21] MEDS ORDERED: D10W 250 ML PRN HYPOGLYCEMIA IV (14:00)
[2017-07-21] MEDS: INSULIN LISPRO 100 UNIT/1 ML VIAL STANDARD SC SCH (17:57)
[2017-07-21] MEDS ORDERED: METOPROLOL TARTRATE 5 MG/5 ML INJ IVP ONE (18:25)
[2017-07-22 05:27] LABS: % IMMATURE GRANULYOCYTES 0.3 % (0.0-1.1); ABSOLUTE IMMATURE GRANULOCYTES 0.03 10^3/uL (0.00-0.10); ABSOLUTE NRBC COUNT 0.06 10^3/uL (0-0.01); ADD DIFF? NO; ADD MORPH? YES; ADD SCAN? NO; ATYPICAL LYMPHOCYTE FLAG 30 (0-99); FRAGMENT RBC FLAG 0 (0-99); LEFT SHIFT FLG 0 (0-99); LIPEMIA HEMOLYSIS FLAG 80 (0-99); MEAN CELL HEMOGLOBIN 30.3 pg (27.9-34.1); MEAN CELL HEMOGLOBIN CONCENTR. 32.3 g/dL (32.4-36.7); MEAN CELL VOLUME 93.9 fL (81.5-99.8); MEAN PLATELET VOLUME 9.8 fL (8.7-11.7); NRBC-AUTO% 0.6 % (0.0-0.2); PLATELET CLUMPS FLAG 0 (0-99); PLATELET COUNT 310 10^3/uL (150-400)
[2017-07-22 05:33] LABS: RED CELL DISTRIBUTION WIDTH 20.2 % (11.5-15.2)
[2017-07-22 05:44] LABS: ANION GAP 9 mEq/L (8-16); CALCIUM 8.5 mg/dL (8.5-10.4); CARBON DIOXIDE 27 mEq/l (22-31); CHLORIDE 108 mEq/L (97-110); CREATININE 0.9 mg/dL (0.6-1.0); GLOMERULAR FILTRATION RATE 59; GLUCOSE 120 mg/dL (70-100); MAGNESIUM 1.6 mg/dL (1.6-2.3); POTASSIUM 4.1 mEq/L (3.5-5.2); SODIUM 144 mEq/L (134-144)
[2017-07-22] MEDS: IPRATROPIUM/ALBUTEROL 3 ML DEYVIAL IH SCH ×3 (06:18→16:56)
[2017-07-22 06:27] LABS: MICROCYTES 1+
[2017-07-22 06:28] LABS: ELLIPTOCYTES 1+; MACROCYTES 1+; PLATELET ESTIMATE ADEQUATE (ADEQ); POLYCHROMASIA 1+
[2017-07-22] MEDS: LEVOTHYROXINE 50 MCG TAB PO SCH (06:31)
[2017-07-22] MEDS: INSULIN LISPRO 100 UNIT/1 ML VIAL STANDARD SC SCH ×3 (09:22→18:30)
--- NOTE | 2017-07-22 09:28 | HOSPPROG ---
Hospitalist Progress Note Assessment/Plan: 87-year-old female with an anemia of on known source. - Anemia: No source or evidence for bleeding. EGD on 07/17 showed no signs of bleeding and a normal esophagus stomach and duodenum. Plan: stool guaiac + today. Hemoglobin is currently 10.0 and stable at 10.0 for last 24 hours; post 2 units PRBC 2 days ago -Q 12 H Hem/Hct - Acute renal failure: Due to hypovolemia plus probably Bactrim. This is now resolved. - Peripheral edema: Possibly secondary to CHF with diastolic dysfunction. Echo on this hospitalization shows an EF of 65% with diastolic dysfunction and mild MR and dilated left atrium with pulmonary hypertension. Patient will be right sided pressure dependent and thus cannot be aggressively diuresed to a low JVD. chest x-ray today to my reading shows persistent hyperinflation bilateral pleural effusions and lower lobe infiltrates consistent which are unchanged from previous. Plan: Gentle diuresis to remove excess fluid. - Chronic respiratory failure with history of bronchiectasis. She is currently at her baseline of 3-4 L O2 per minute -OSAS/CPAP In use during hospitalization and functioning well - sees Dr. Rafita Williamson. - atrial fibrillation now in a controlled rate: She is status post pacemaker placement which is functioning well. Rate control with diltiazem and anticoagulation with Lovenox 60 mg twice daily. Plan: Continue current treatment. - Diabetes mellitus: Holding metformin and covering with SSI as needed. - Severe protein caloric malnutrition: Albumin 2.7. Will start calorie counts. Note that the patient had a swallowing evaluation which showed aspiration with large volumes of thin liquids. She needs to eat slowly and take small sips. Her daughter is bringing food in from the outside. - Pacemaker placement: Pacer placed for sick sinus syndrome and a 12 second pause. Plan: Gentle diuresis to remove excess fluid ; and metolozone 2.5 mg per day , recheck a chest x-ray and respiratory function; maintain good rate control with diltiazem and continue full-dose anticoagulation for atrial fibrillation. - PT and OT for rehabilitation. - Stools checked for blood and of hemoglobin falls then probable colonoscopy and possible tagged red cell scan. Diuscussed with Daughter and nursing; case management. She is close to baseline. Time 45 minutes: Subjective: ncomplaintsts. no abdominal pain, nno SOB, chest paino cno Objective: Vital Signs Temp Pulse Resp BP Pulse Ox 36.6 C 74 16 113/66 95 07/22/17 07:48 07/22/17 07:48 07/22/17 07:48 07/22/17 07:48 07/22/17 07:48 Laboratory Results 07/22/17 04:07 07/22/17 04:07 07/21/17 07/22/17 07/23/17 05:59 05:59 05:59 Intake Total 2245 850 Output Total 825 Balance 2245 25 PT 17.3 SEC (12.0-15.0) H 07/16/17 04:50 INR 1.42 (0.83-1.16) H 07/16/17 04:50 Laboratory Tests 07/16/17 07/19/17 07/20/17 04:50 13:35 04:30 Hgb 8.2 L 6.7 L INR 1.42 H 07/21/17 07/22/17 04:05 04:07 Hgb 10.1 L 10.0 L INR - Time Spent With Patient Time Spent with Patient: greater than 35 minutes Time Spent with Patient: Greater than 35 minutes spent on this patients care, greater than 50% of time spent counseling, educating, and coordinating care regarding the above mentioned plan. - Pending Discharge Pending Discharge Within 24 Hours: No Pending Discharge Within 48 Hours: Yes Pending Discharge Date: 07/24/17 Pending Discharge Time: 11:00 - Physical Exam Constitutional: no apparent distress, chronically ill appearing Eyes: PERRL, anicteric sclera Ears, Nose, Mouth, Throat: moist mucous membranes, hearing normal Cardiovascular: regular rate and rhythym Respiratory: reduced air movement, expiratory wheeze, inspiratory crackles, bronchial breath sounds Gastrointestinal: normoactive bowel sounds, soft, non-tender abdomen Genitourinary: no bladder fullness Skin: warm Musculoskeletal: other (edema and ecchymosis in LE bilateral) Neurologic: AAOx3, CN II-XII Intact Psychiatric: interacting appropriately ICD10 Worksheet Patient Problems: Problems Problem Status Onset Pneumonia Acute Chronic Disease Managment/Transitional Care Program Acute Renal insufficiency Acute Serum potassium elevated Acute
[2017-07-22] MEDS: DILTIAZEM CD 180 MG CAP PO SCH (10:06)
[2017-07-22] MEDS: MULTIVITAMINS 1 EACH TAB PO SCH (10:09)
[2017-07-22] MEDS: FUROSEMIDE 40 MG/4 ML VIAL IVP SCH ×2 (10:09→15:46)
[2017-07-22] MEDS: POTASSIUM CL 20 MEQ/15 ML UDCUP PO SCH ×2 (10:11→20:47)
[2017-07-22] MEDS: PREGABALIN 25 MG CAP PO SCH ×2 (10:25→20:48)
[2017-07-22] MEDS: SENNOSIDES/DOCUSATE SODIUM TAB PO SCH ×2 (12:55→20:48)
[2017-07-22] MEDS: METOLAZONE 2.5 MG TAB PO SCH (14:13)
--- NOTE | 2017-07-22 16:07 | ASMTCMCOM ---
CM Note CM Note Notes: DC POC still to go to [facility] when medically ready. Met w/pt to discuss and she is still in agreement w/this dc poc. Updated Katy at [facility]. CM should notify [facility] tomorrow AM as soon as we know if pt may dc tomorrow as they are tight on beds. DON w/f. Date Signed: 07/22/2017 04:06 PM Electronically Signed By:Jaycee De Jesus RN
[2017-07-22] MEDS: ENOXAPARIN 60 MG/0.6 ML SYR SC SCH (21:06)
[2017-07-23] MEDS: IPRATROPIUM/ALBUTEROL 3 ML DEYVIAL IH SCH ×5 (00:02→21:47)
[2017-07-23 05:24] LABS: ANION GAP 12 mEq/L (8-16); CALCIUM 8.8 mg/dL (8.5-10.4); CARBON DIOXIDE 29 mEq/l (22-31); CHLORIDE 101 mEq/L (97-110); CREATININE 0.8 mg/dL (0.6-1.0); GLOMERULAR FILTRATION RATE > 60; GLUCOSE 118 mg/dL (70-100); MAGNESIUM 1.5 mg/dL (1.6-2.3); SODIUM 142 mEq/L (134-144)
[2017-07-23 05:27] LABS: % IMMATURE GRANULYOCYTES 0.5 % (0.0-1.1); ABSOLUTE IMMATURE GRANULOCYTES 0.05 10^3/uL (0.00-0.10); ADD DIFF? NO; ADD MORPH? NO; ADD SCAN? NO; ATYPICAL LYMPHOCYTE FLAG 10 (0-99); FRAGMENT RBC FLAG 0 (0-99); HEMATOCRIT 30.7 % (38.0-47.0); HEMOGLOBIN 9.9 g/dL (12.6-16.3); LEFT SHIFT FLG 0 (0-99); LIPEMIA HEMOLYSIS FLAG 80 (0-99); MEAN CELL HEMOGLOBIN 30.4 pg (27.9-34.1); MEAN CELL HEMOGLOBIN CONCENTR. 32.2 g/dL (32.4-36.7); MEAN CELL VOLUME 94.2 fL (81.5-99.8); MEAN PLATELET VOLUME 9.9 fL (8.7-11.7); PLATELET CLUMPS FLAG 20 (0-99); PLATELET COUNT 333 10^3/uL (150-400); RED BLOOD CELL COUNT 3.26 10^6/uL (4.18-5.33); RED CELL DISTRIBUTION WIDTH 19.4 % (11.5-15.2)
[2017-07-23] MEDS: LEVOTHYROXINE 50 MCG TAB PO SCH (06:47)
[2017-07-23] MEDS: INSULIN LISPRO 100 UNIT/1 ML VIAL STANDARD SC SCH ×3 (07:51→18:12)
[2017-07-23] MEDS ORDERED: FLU VACC QS 2017-18 (3YR+)/PF 0.5 ML SYR (FLUARIX QUAD) IM ONE ×2 (10:00→13:09)
[2017-07-23] MEDS ORDERED: IPRATROPIUM/ALBUTEROL 3 ML DEYVIAL ONE (10:03)
[2017-07-23] MEDS ORDERED: MAGNESIUM SULF 1 GM/DEXTROSE 100 ML IV ONE (10:07)
--- NOTE | 2017-07-23 10:07 | HOSPPROG ---
Hospitalist Progress Note Assessment/Plan: 87-year-old female with an anemia of on known source, presummed 2/2 GI bleeding , probably LGI. No bleeding in several days - Anemia: No source or evidence for bleeding. EGD on 07/17 showed no signs of bleeding and a normal esophagus stomach and duodenum. Plan: stool guaiac + today. Hemoglobin is currently 10.0 and stable at 10.0 for last 24 hours; post 2 units PRBC 2 days ago. -Q 12 H Hem/Hct - Peripheral edema: Possibly secondary to CHF with diastolic dysfunction. Echo on this hospitalization shows an EF of 65% with diastolic dysfunction and mild MR and dilated left atrium with pulmonary hypertension. Patient will be right sided pressure dependent and thus cannot be aggressively diuresed to a low JVD. chest x-ray today to my reading shows persistent hyperinflation bilateral pleural effusions and lower lobe infiltrates consistent which are unchanged from previous. Plan: Increased diuresis with Lasix twice daily plus metolazone. - Suggest continue the metolazone only for 1 week. - Acute renal failure: Due to hypovolemia plus probably Bactrim. This is now resolved. - Chronic respiratory failure with history of bronchiectasis. She is currently at her baseline of 3-4 L O2 per minute -OSAS/CPAP In use during hospitalization and functioning well - sees Dr. Rafita Williamson. - atrial fibrillation now in a controlled rate: She is status post pacemaker placement which is functioning well. Rate control with diltiazem and anticoagulation with Lovenox 60 mg twice daily. Plan: Begin Coumadin anticoagulation; will need Lovenox bridging. - Diabetes mellitus: Holding metformin and covering with SSI as needed. - Severe protein caloric malnutrition: Albumin 2.7. Will start calorie counts. Note that the patient had a swallowing evaluation which showed aspiration with large volumes of thin liquids. She needs to eat slowly and take small sips. Her daughter is bringing food in from the outside. - Pacemaker placement: Pacer placed for sick sinus syndrome and a 12 second pause. Plan: Gentle diuresis to remove excess fluid ; and metolozone 2.5 mg per day , recheck a chest x-ray and respiratory function; maintain good rate control with diltiazem and continue full-dose anticoagulation for atrial fibrillation; Begin Coumadin anticoagulation - PT and OT for rehabilitation. - Stools checked for blood and of hemoglobin falls then probable colonoscopy and possible tagged red cell scan. Diuscussed with Daughter and nursing; case management. She is close to baseline. disposition: She will be discharged to [facility] on 07/24 if the hemoglobin and electrolytes are stable Time 45 minutes: Subjective: no complaints of shortness of breath or chest pain. She is feeling stronger and has a better appetite. She did have 1 black tarry stool today though her hemoglobin is stable Objective: Vital Signs Temp Pulse Resp BP Pulse Ox 36.5 C 82 20 107/65 90 L 07/23/17 07:35 07/23/17 07:35 07/23/17 07:35 07/23/17 07:35 07/23/17 07:35 Laboratory Results 07/23/17 03:59 07/23/17 03:59 07/22/17 07/23/17 07/24/17 05:59 05:59 05:59 Intake Total 850 660 Output Total 825 500 375 Balance 25 160 -375 PT 17.3 SEC (12.0-15.0) H 07/16/17 04:50 INR 1.42 (0.83-1.16) H 07/16/17 04:50 Laboratory Tests 07/20/17 07/21/17 07/22/17 04:30 04:05 04:07 Hgb 6.7 L 10.1 L 10.0 L Magnesium 07/23/17 07/23/17 03:59 03:59 Hgb 9.9 L Magnesium 1.5 L - Time Spent With Patient Time Spent with Patient: greater than 35 minutes Time Spent with Patient: Greater than 35 minutes spent on this patients care, greater than 50% of time spent counseling, educating, and coordinating care regarding the above mentioned plan. - Pending Discharge Pending Discharge Within 24 Hours: Yes Pending Discharge Date: 07/24/17 Pending Discharge Time: 11:00 - Physical Exam Constitutional: no apparent distress, chronically ill appearing Eyes: PERRL, anicteric sclera Ears, Nose, Mouth, Throat: moist mucous membranes, hearing normal Cardiovascular: no murmur, rub, or gallop, irregularly irregular Respiratory: reduced air movement, inspiratory crackles, bronchial breath sounds , rhonchi Gastrointestinal: normoactive bowel sounds, soft, non-tender abdomen, no palpable masses Genitourinary: no bladder fullness Skin: warm, other ( ecchymosis and healing wounds on the lower extremities bilaterally. She has 1 to 2+ peripheral edema.) Musculoskeletal: generalized weakness Neurologic: AAOx3, CN II-XII Intact Psychiatric: interacting appropriately ICD10 Worksheet Patient Problems: Problems Problem Status Onset Renal insufficiency Acute Serum potassium elevated Acute Chronic Disease Managment/Transitional Care Program Acute Pneumonia Acute
[2017-07-23] MEDS: DILTIAZEM CD 180 MG CAP PO SCH (10:19)
[2017-07-23] MEDS: ENOXAPARIN 60 MG/0.6 ML SYR SC SCH ×2 (10:20→21:25)
[2017-07-23] MEDS: FUROSEMIDE 40 MG/4 ML VIAL IVP SCH (10:20)
[2017-07-23] MEDS: MULTIVITAMINS 1 EACH TAB PO SCH (10:20)
[2017-07-23] MEDS: METOLAZONE 2.5 MG TAB PO SCH (10:20)
[2017-07-23] MEDS: PREGABALIN 25 MG CAP PO SCH ×2 (10:20→21:25)
[2017-07-23] MEDS: SENNOSIDES/DOCUSATE SODIUM TAB PO SCH ×2 (10:20→23:26)
[2017-07-23] MEDS: POTASSIUM CL 20 MEQ/15 ML UDCUP PO SCH ×2 (10:20→21:25)
[2017-07-23] MEDS ORDERED: FUROSEMIDE 20 MG/2 ML VIAL IVP ONE (13:39)
[2017-07-23] MEDS ORDERED: NON-FORMULARY NEW DRUG (Metformin Hcl [Metformin 1000 Mg] 1,000 MG) PO SCH (14:15)
[2017-07-23] MEDS ORDERED: FUROSEMIDE 40 MG/4 ML VIAL IVP SCH (15:45)
[2017-07-23] MEDS ORDERED: FUROSEMIDE 40 MG TAB PO SCH (16:00)
[2017-07-23] MEDS: WARFARIN SODIUM 5 MG TAB PO SCH (17:14)
[2017-07-23] MEDS: metFORMIN HCL 500 MG TAB PO SCH (18:12)
[2017-07-24] MEDS ORDERED: NS 500 ML IV ONE (01:09)
[2017-07-24 04:51] LABS: % IMMATURE GRANULYOCYTES 0.4 % (0.0-1.1); ABSOLUTE IMMATURE GRANULOCYTES 0.04 10^3/uL (0.00-0.10); ABSOLUTE NRBC COUNT 0.03 10^3/uL (0-0.01); ADD DIFF? NO; ADD MORPH? NO; ADD SCAN? NO; ATYPICAL LYMPHOCYTE FLAG 0 (0-99); FRAGMENT RBC FLAG 0 (0-99); HEMATOCRIT 26.8 % (38.0-47.0); HEMOGLOBIN 8.5 g/dL (12.6-16.3); LEFT SHIFT FLG 0 (0-99); LIPEMIA HEMOLYSIS FLAG 80 (0-99); MEAN CELL HEMOGLOBIN 30.5 pg (27.9-34.1); MEAN CELL HEMOGLOBIN CONCENTR. 31.7 g/dL (32.4-36.7); MEAN CELL VOLUME 96.1 fL (81.5-99.8); NRBC-AUTO% 0.3 % (0.0-0.2); PLATELET CLUMPS FLAG 0 (0-99); PLATELET COUNT 305 10^3/uL (150-400); RED BLOOD CELL COUNT 2.79 10^6/uL (4.18-5.33); RED CELL DISTRIBUTION WIDTH 18.5 % (11.5-15.2)
[2017-07-24 05:00] LABS: ANION GAP 13 mEq/L (8-16); CALCIUM 8.6 mg/dL (8.5-10.4); CARBON DIOXIDE 28 mEq/l (22-31); CHLORIDE 99 mEq/L (97-110); GLOMERULAR FILTRATION RATE 52; GLUCOSE 133 mg/dL (70-100); MAGNESIUM 1.6 mg/dL (1.6-2.3); POTASSIUM 4.4 mEq/L (3.5-5.2); SODIUM 140 mEq/L (134-144)
[2017-07-24] MEDS: LEVOTHYROXINE 50 MCG TAB PO SCH (05:09)
[2017-07-24] MEDS: DILTIAZEM CD 180 MG CAP PO SCH (05:09)
[2017-07-24 05:18] LABS: INR 1.27 (0.83-1.16); PROTIME(PATIENT) 15.9 SEC (12.0-15.0)
[2017-07-24] MEDS: IPRATROPIUM/ALBUTEROL 3 ML DEYVIAL IH SCH ×4 (06:04→20:47)
[2017-07-24] MEDS ORDERED: ALBUMIN 25% 100 ML IV ONE ×2 (08:21→17:43)
--- NOTE | 2017-07-24 08:25 | HOSPPROG ---
Hospitalist Progress Note Assessment/Plan: #Tachycardia: EKG reviewed by me. A flutter. Dilt this morn, now with low BP. Dose IV amiodarone. BUN/Cr up a bit. IV albumin with volume overload #Hypotension: due to diuresis, +/- GIB, afib. Dose IV Albumin, amiodarone. Check UA, repeat CBC. Normal EF #GIB: possible GIB. H/H trending down, but stable. -EGD unrevealing. Transfused 2 units 07/20. On anticoag for fib/flutter She understands the risk of bleeding with these meds and wants to take, bc more concerned with CVA. -Dr. Atkins to eval this afternoon for possible scope #Decompensated diastolic HF/anasarca: holding lasix, metolazone with low BP A fib/flutter: CHADs 6. Warrants bridge AC. If H/H drops, then will have to hold #Leukocytosis: afebrile. Min cough. UA pending #Atrial fib/flutter: CHADs score 6. High risk CVA. I had extensive talk with she and daughter on risk of giving these meds in setting of possible GIB. They understand and want to cont AC to avoid CVA #DVT ppx: lovenox, coumadin Subjective: tired. No CP, dizziness or lightheadedness Objective: Vital Signs Temp Pulse Resp BP Pulse Ox 37.0 C 146 H 20 82/56 L 96 07/24/17 08:00 07/24/17 08:00 07/24/17 08:00 07/24/17 08:00 07/24/17 08:00 Laboratory Results 07/24/17 03:47 07/24/17 03:47 07/23/17 07/24/17 07/25/17 05:59 05:59 05:59 Intake Total 660 1520 Output Total 500 1275 Balance 160 245 PT 15.9 SEC (12.0-15.0) H 07/24/17 03:47 INR 1.27 (0.83-1.16) H 07/24/17 03:47 - Physical Exam Constitutional: chronically ill appearing Eyes: PERRL Ears, Nose, Mouth, Throat: moist mucous membranes Cardiovascular: irregularly irregular, tachycardia, edema (+2 LE edema) Respiratory: rhonchi Gastrointestinal: normoactive bowel sounds, soft, non-tender abdomen Genitourinary: no bladder fullness Skin: warm Musculoskeletal: generalized weakness Neurologic: AAOx3, CN II-XII Intact Psychiatric: encephalopathic ICD10 Worksheet Patient Problems: Problems Problem Status Onset Palliative care encounter Acute Renal insufficiency Acute Serum potassium elevated Acute Chronic Disease Managment/Transitional Care Program Acute Pneumonia Acute
--- NOTE | 2017-07-24 08:46 | CPEKG ---
Heart Rate: 133 RR Interval: 451 QRSD Interval: 90 QT Interval: 292 QTC Interval: 435 QRS [place]: 79 T Wave [place]: 232 EKG Severity - ABNORMAL ECG - EKG Impression: atrial flutter with variable conduction EKG Impression: NONSPECIFIC T ABNORMALITIES, DIFFUSE LEADS Electronically Signed By: Bob Esposito 24-Jul-2017 12:25:54
[2017-07-24] MEDS ORDERED: AMIODARONE HCL 100 ML IV ONE (08:48)
[2017-07-24] MEDS: INSULIN LISPRO 100 UNIT/1 ML VIAL STANDARD SC SCH ×3 (08:58→18:33)
[2017-07-24] MEDS: SENNOSIDES/DOCUSATE SODIUM TAB PO SCH ×2 (08:59→21:38)
[2017-07-24 09:43] LABS: HEMATOCRIT 27.4 % (38.0-47.0); HEMOGLOBIN 8.6 g/dL (12.6-16.3); MEAN CELL HEMOGLOBIN 30.2 pg (27.9-34.1); MEAN CELL HEMOGLOBIN CONCENTR. 31.4 g/dL (32.4-36.7); MEAN CELL VOLUME 96.1 fL (81.5-99.8); RED BLOOD CELL COUNT 2.85 10^6/uL (4.18-5.33); RED CELL DISTRIBUTION WIDTH 18.3 % (11.5-15.2)
[2017-07-24 09:44] LABS: ANION GAP 14 mEq/L (8-16); CARBON DIOXIDE 29 mEq/l (22-31); CHLORIDE 98 mEq/L (97-110); GLOMERULAR FILTRATION RATE 52; GLUCOSE 154 mg/dL (70-100); SODIUM 141 mEq/L (134-144)
[2017-07-24] MEDS: MULTIVITAMINS 1 EACH TAB PO SCH (10:21)
[2017-07-24] MEDS: metFORMIN HCL 500 MG TAB PO SCH (10:21)
[2017-07-24] MEDS ORDERED: AMIODARONE HCL 540 MG in D5W 300 ML IV ONE (10:26)
[2017-07-24] MEDS ORDERED: AMIODARONE HCL 200 ML IV ONE (10:26)
[2017-07-24] MEDS: ENOXAPARIN 60 MG/0.6 ML SYR SC SCH ×3 (10:39→21:37)
[2017-07-24] MEDS ORDERED: AMIODARONE A.FIB-6HR INFSN (ORDER 2/3) IV ONE (11:00)
[2017-07-24 12:39] LABS: COLOR YELLOW; LEUKOCYTE ESTERASE,URINE 2+ (NEGATIVE); NITRITE,URINE POSITIVE (NEGATIVE)
[2017-07-24 12:46] LABS: BACTERIA 1+ /hpf (NONE SEEN); MUCUS TRACE /lpf (NONE-1+); WBC,URINE 25-50 /hpf (0-3)
--- NOTE | 2017-07-24 14:44 | SOAPPROG ---
SOAP Progress Note Assessment/Plan: Assessment: 87 year old woman with multiple medial problems. Patient admitted m with hyperkalemia and azotemia. She was noted to be anemic with no overt GI bleeding. EGD was normal. She has had a prior colonoscopy many years ago, normal to patients report. She received 4 units of PRBC's total during admit. Two units on 07/20. She had a slow drop in Hct since that time. She has been on anticoagulation for atrial fibrillation. She is on Lovenox currently but has refused Warfarin. No nausea, vomiting, melena or hematochezia, but reportedly had FOBT positive stool. Had a discussion with family and her. They are very reluctant to put her through a colonoscopy at this point. Will hold off on colonoscopy, follow H and H serially and follow her clinically. Unclear source of drop in Hct. Certainly if there is a GI bleed it is slow, such as small bowel or colonic AVM. Less likely malignancy. Plan: 1. Follow H and H serially 2. If continues to have a drop in Hct we can re-visit the need for colonoscopy 3. If she does have colonoscopy and that is negative the next step would be capsule study. 4. Dr. Schofield to follow up with patient tomorrow. 07/24/17 15:04 Subjective: CC: Hyperkaliemia, LAMONT and anemia requiring blood transfusion She denies any blood per rectum or melena (black or tarry stool) Objective: Vital Signs Temp Pulse Resp BP Pulse Ox 36.6 C 112 H 18 90/49 L 91 L 07/24/17 11:52 07/24/17 11:52 07/24/17 11:52 07/24/17 11:52 07/24/17 11:52 Laboratory Results 07/24/17 09:15 07/24/17 09:15 07/23/17 07/24/17 07/25/17 05:59 05:59 05:59 Intake Total 660 1520 Output Total 500 1275 400 Balance 160 245 -400 PT 15.9 SEC (12.0-15.0) H 07/24/17 03:47 INR 1.27 (0.83-1.16) H 07/24/17 03:47 Generic Name Dose Route Start Last Admin Trade Name Freq PRN Reason Stop Dose Admin Acetaminophen 650 mg 07/11/17 01:31 Tylenol PO 01/07/18 01:30 Q4HRS PRN Pain, Mild/Fever, Can Take PO Albuterol/Ipratropium 3 ml 07/14/17 18:00 07/24/17 10:57 Duoneb IH 01/10/18 17:59 Not Given Q6 HERNAN Bisacodyl 10 mg 07/14/17 14:21 07/15/17 12:00 Dulcolax Rectal AR 01/10/18 14:20 10 mg DAILY PRN Administration Constipation Protocol Diltiazem HCl 180 mg 07/19/17 12:00 07/24/17 05:09 Cardizem Er Q24hr PO 01/15/18 11:59 180 mg DAILY HERNAN Administration Enoxaparin Sodium 60 mg 07/14/17 21:00 07/24/17 13:49 Lovenox SC 01/10/18 20:59 60 mg BID HERNAN Administration Amiodarone HCl 200 mls @ 33.333 mls/hr 07/24/17 11:00 07/24/17 10:45 Amiodarone Hcl IV 07/24/17 16:59 200 mls ONCE ONE Administration Protocol Amiodarone HCl 540 mg/ 300 mls @ 16.667 mls/hr 07/24/17 17:00 Dextrose IV 07/25/17 10:59 ONCE ONE Protocol Ceftriaxone Sodium/Dextrose 50 mls @ 100 mls/hr 07/24/17 14:30 07/24/17 14:46 Rocephin 1 Gm (Premix) IV 08/23/17 14:29 50 mls DAILY HERNAN Administration Protocol Magnesium Sulfate/Dextrose 100 mls @ 100 mls/hr 07/24/17 15:00 Magnesium Sulf 1 Gm (Premix) IV 07/24/17 15:59 ONCE ONE Insulin Human Lispro 2 - 10 unit 07/21/17 18:00 07/24/17 13:09 Humalog Lispro SC 01/17/18 17:59 Not Given TIDMEAL HERNAN Protocol Lactulose 20 gm 07/14/17 14:21 Cephulac PO 01/10/18 14:20 TID PRN Constipation Protocol Levothyroxine Sodium 50 mcg 07/11/17 09:00 07/24/17 05:09 Synthroid PO 01/07/18 08:59 50 mcg DAILY06 HERNAN Administration Magnesium Hydroxide 30 ml 07/14/17 14:21 Milk Of Magnesia PO 01/10/18 14:20 DAILY PRN Constipation Protocol Miscellaneous Information 1 ea 07/21/17 13:54 Message To Rn CONSTANTINO 01/17/18 13:53 PRN PRN BG Control info Multivitamins 1 each 07/11/17 09:00 07/24/17 10:21 Tab-A-Tonay PO 01/07/18 08:59 1 each DAILY HERNAN Administration Ondansetron HCl 4 mg 07/11/17 01:31 Zofran IVP 01/07/18 01:30 Q4HRS PRN Nausea/Vomiting, Can't Take PO Ondansetron HCl 4 mg 07/11/17 01:31 Zofran Odt PO 01/07/18 01:30 Q4HRS PRN Nausea/Vomiting, Use 1st Polyethylene Glycol 17 gm 07/14/17 14:21 Miralax PO 01/10/18 14:20 DAILY PRN Constipation Protocol Senna/Docusate Sodium 1 - 2 tab 07/14/17 14:30 07/24/17 08:59 Senokot-S PO 01/10/18 14:29 Not Given BID HERNAN Protocol Warfarin Sodium 5 mg 07/23/17 16:00 07/23/17 17:14 Coumadin PO 01/19/18 15:59 Not Given DAILY AT 4PM HERNAN Discontinued Medications Generic Name Dose Route Start Last Admin Trade Name Freq PRN Reason Stop Dose Admin Albuterol/Ipratropium Confirm 07/23/17 10:03 Duoneb Administered 07/23/17 10:04 Dose 3 ml .ROUTE .STK-MED ONE Bacitracin 50,000 units 07/16/17 06:00 07/16/17 09:48 Bacitracin 1000 Ml Irrigation IRR 07/16/17 06:01 Not Given ONCALL ONE Bupivacaine HCl Confirm 07/16/17 09:42 Sensorcaine 0.5% Vial Administered 07/16/17 09:43 Dose 30 ml .ROUTE .STK-MED ONE Cosyntropin 0.25 mg 07/13/17 06:00 07/13/17 05:37 Cortrosyn Syringe IVP 07/13/17 06:01 0.25 mg DAILY@0600 ONE Administration Cosyntropin 0.25 mg 07/15/17 06:00 07/15/17 06:29 Cortrosyn Syringe IVP 07/15/17 06:01 0.25 mg DAILY@0600 ONE Administration Dexamethasone 4 mg 07/17/17 13:15 Decadron Injection IVP 07/17/17 14:15 ONCE PRN PACU, Nausea/Vomiting Dextrose 25 gm 07/10/17 21:05 07/10/17 21:53 Dextrose 50% Syringe IVP 07/10/17 21:06 25 gm EDNOW ONE Administration Dextrose 25 gm 07/11/17 01:38 07/11/17 01:10 Dextrose 50% Syringe IVP 01/07/18 01:37 25 gm PRN PRN Administration Hypoglycemia Dextrose 25 gm 07/11/17 02:36 Dextrose 50% Syringe IVP 01/07/18 02:35 PRN PRN Hypoglycemia Diazepam 5 mg 07/16/17 06:00 07/16/17 09:47 Valium PO 07/16/17 06:01 Not Given ONCALL ONE Diltiazem HCl 30 mg 07/16/17 20:00 07/16/17 20:13 Cardizem Immediate Release PO 01/12/18 19:59 30 mg Q12 HERNAN Administration Diltiazem HCl 30 mg 07/17/17 00:00 07/17/17 05:08 Cardizem Immediate Release PO 01/13/18 00:00 30 mg Q6 HERNAN Administration Diltiazem HCl 45 mg 07/17/17 08:35 07/19/17 06:22 Cardizem Immediate Release PO 01/13/18 00:00 45 mg Q6 HERNAN Administration Diphenhydramine HCl 25 mg 07/16/17 06:00 07/16/17 09:47 Benadryl PO 07/16/17 06:01 Not Given ONCALL ONE Enoxaparin Sodium 30 mg 07/11/17 09:00 Lovenox SC 01/07/18 08:59 DAILY HERNAN Fentanyl Confirm 07/16/17 09:42 Sublimaze Administered 07/16/17 09:43 Dose 100 mcg .ROUTE .STK-MED ONE Furosemide 40 mg 07/21/17 11:15 07/23/17 10:20 Lasix Injection IVP 01/17/18 11:14 40 mg BID@0900,1500 HERNAN Administration Furosemide 40 mg 07/23/17 13:39 07/23/17 16:09 Lasix Injection IVP 07/23/17 13:40 Not Given BID ONE Furosemide 40 mg 07/23/17 16:00 07/23/17 16:12 Lasix PO 01/19/18 15:59 40 mg BIDDIUR HERNAN Administration Heparin Sodium (Porcine) 5,000 unit 07/11/17 14:00 07/14/17 14:23 Heparin Sc Injection SC 01/07/18 13:59 5,000 unit Q8HRS HERNAN Administration Insulin Human Regular 10 unit/ 500.1 mls @ 50 mls/hr 07/10/17 21:05 07/10/17 21:53 Miscellaneous Medication 1 ea IV 07/11/17 07:05 500.1 mls / Dextrose EDNOW ONE Administration Sodium Bicarbonate 150 meq/ 1,150 mls @ 0 mls/hr 07/10/17 21:05 07/10/17 22: 10 Dextrose IV 07/10/17 21:06 1,150 mls EDNOW ONE Administration As Directed Sodium Chloride 1,000 mls @ 0 mls/hr 07/11/17 00:53 07/11/17 01:15 Ns IV 07/11/17 00:54 1,000 mls ONCE ONE Administration Protocol Wide Open Sodium Chloride 1,000 mls @ 250 mls/hr 07/11/17 01:31 07/11/17 02:39 Ns IV 07/11/17 05:30 1,000 mls ONCE ONE Administration Dextrose 250 mls @ 0 mls/hr 07/11/17 01:38 07/11/17 02:30 D10w IV 01/07/18 01:37 250 mls PRN PRN Administration Hypoglycemia Protocol Wide Open Dextrose 1,000 mls @ 150 mls/hr 07/11/17 04:00 D10w IV 01/07/18 03:59 CONT HERNAN Sodium Chloride 2,000 mls @ 0 mls/hr 07/11/17 04:00 07/11/17 07:52 Ns IV 07/11/17 04:01 2,000 mls ONCE ONE Administration Wide Open Dopamine HCl/Dextrose 250 mls @ 0 mls/hr 07/11/17 05:00 07/12/17 14:21 Dopamine 1600 Mcg/Ml (Premix) IV 01/07/18 04:59 250 mls CONT HERNAN Administration Protocol Titrate Sodium Chloride 1,000 mls @ 100 mls/hr 07/11/17 08:30 07/11/17 13:26 Ns IV 01/07/18 08:29 1,000 mls CONT HERNAN Administration Dextrose/Sodium Chloride 1,000 mls @ 50 mls/hr 07/11/17 10:30 07/11/17 10:31 D5w Ns IV 01/07/18 10:29 1,000 mls CONT HERNAN Administration Vancomycin/Sodium Chloride 250 mls @ 250 mls/hr 07/11/17 17:30 07/11/17 17:47 Vancomycin 1 Gm (Premix) IV 08/10/17 17:29 Not Given Q24H HERNAN Protocol Vancomycin HCl 750 mg/ 150 mls @ 150 mls/hr 07/11/17 18:00 07/11/17 17:56 Dextrose IV 08/10/17 17:59 150 mls Q48H HERNAN Administration Sodium Chloride 1,000 mls @ 50 mls/hr 07/11/17 18:30 07/12/17 02:24 Ns IV 01/07/18 18:29 1,000 mls CONT HERNAN Administration Albumin Human 100 mls @ 0 mls/hr 07/12/17 12:00 07/13/17 12:36 Flexbumin 25 % (Premix) IV 01/08/18 11:59 100 mls Q6HRS HERNAN Administration As Directed Cefazolin Sodium/Dextrose 50 mls @ 200 mls/hr 07/13/17 22:00 07/17/17 05:08 Ancef 1 Gm (Premix) IV 08/12/17 21:59 50 mls Q8HRS HERNAN Administration Protocol Dopamine HCl/Dextrose 250 mls @ 6.838 mls/hr 07/13/17 22:30 07/13/17 22:26 Dopamine 1600 Mcg/Ml (Premix) IV 01/09/18 22:29 250 mls CONT HERNAN Administration 3 MCG/KG/MIN Dextrose 1,000 mls @ 35 mls/hr 07/14/17 08:30 07/15/17 06:13 D5w IV 01/10/18 08:29 1,000 mls CONT HERNAN Administration Sodium Chloride 1,000 mls @ 0 mls/hr 07/16/17 06:00 07/16/17 09:48 Ns IV 07/16/17 06:01 1,000 mls ONCALL ONE Administration As Directed Pantoprazole Sodium 40 mg/ 100 mls @ 200 mls/hr 07/16/17 15:45 07/18/17 09:40 Sodium Chloride IV 01/12/18 15:44 Not Given BID HERNAN Magnesium Sulfate/Dextrose 100 mls @ 100 mls/hr 07/17/17 05:14 07/17/17 05:26 Magnesium Sulf 1 Gm (Premix) IV 07/17/17 06:13 100 mls ONCE ONE Administration Lactated Ringer's 1,000 mls @ 0 mls/hr 07/17/17 11:50 07/17/17 15:56 Lr IV 07/17/17 11:51 Not Given ONCE ONE KVO Sodium Chloride 1,000 mls @ 100 mls/hr 07/18/17 09:15 07/18/17 09:31 1/2 Ns IV 07/18/17 10:14 1,000 mls CONT HERNAN Administration Sodium Chloride 1,000 mls @ 100 mls/hr 07/19/17 14:00 1/2 Ns IV 01/15/18 13:59 CONT HERNAN Dextrose 1,000 mls @ 75 mls/hr 07/19/17 15:00 07/20/17 04:36 D5w IV 01/15/18 14:59 1,000 mls CONT HERNAN Administration Dextrose 250 mls @ 0 mls/hr 07/21/17 14:00 D10w IV 01/17/18 13:59 PRN PRN Hypoglycemia Protocol Wide Open Magnesium Sulfate/Dextrose 100 mls @ 100 mls/hr 07/23/17 10:07 07/23/17 11:19 Magnesium Sulf 1 Gm (Premix) IV 07/23/17 11:06 100 mls ONCE ONE Administration Sodium Chloride 500 mls @ 0 mls/hr 07/24/17 01:09 07/24/17 02:06 Ns IV 07/24/17 01:10 500 mls ONCE ONE Administration Wide Open Albumin Human 100 mls @ 0 mls/hr 07/24/17 08:21 07/24/17 08:49 Flexbumin 25 % (Premix) IV 07/24/17 08:22 100 mls ONCE ONE Administration As Directed Amiodarone HCl 100 mls @ 600 mls/hr 07/24/17 08:48 07/24/17 09:18 Amiodarone Hcl IV 07/24/17 08:57 100 mls ONCE ONE Administration Influenza Virus Vaccine Quadrival 0.5 ml 07/23/17 10:00 07/23/17 13:24 Fluarix Quad [id number] IM 07/23/17 10:01 0.5 ml .ONCE ONE Administration Influenza Virus Vaccine Quadrival Confirm 07/23/17 13:09 Fluarix Quad [id number] Administered 07/23/17 13:10 Dose 0.5 ml IM .STK-MED ONE Insulin Human Regular 10 unit 07/10/17 21:05 07/10/17 21:55 Humulin R IVP 07/10/17 21:06 10 units EDNOW ONE Administration Iopamidol Confirm 07/16/17 09:43 Isovue-300 Administered 07/16/17 09:44 Dose 150 ml .ROUTE .STK-MED ONE Lidocaine HCl Confirm 07/16/17 09:42 Lidocaine Hcl 1% Administered 07/16/17 09:43 Dose 300 mg .ROUTE .STK-MED ONE Lidocaine/Epinephrine Confirm 07/16/17 09:42 Xylocaine 1%-Epi 1:200,000 Administered 07/16/17 09:43 Dose 30 ml .ROUTE .STK-MED ONE Metformin HCl 1,000 mg 07/15/17 18:00 07/17/17 08:49 Glucophage PO 01/11/18 17:59 1,000 mg BIDMEAL HERNAN Administration Metformin HCl 1,000 mg 07/23/17 18:00 07/24/17 10:21 Glucophage PO 01/19/18 17:59 Not Given BIDMEAL HERNAN Metolazone 2.5 mg 07/22/17 12:00 07/23/17 10:20 Zaroxolyn PO 01/18/18 11:59 2.5 mg DAILY HERNAN Administration Metoprolol Tartrate 25 mg 07/13/17 16:00 07/13/17 20:58 Lopressor PO 01/09/18 15:59 25 mg BID HERNAN Administration Metoprolol Tartrate Confirm 07/16/17 13:56 Lopressor Injection Administered 07/16/17 13:57 Dose 5 mg .ROUTE .STK-MED ONE Metoprolol Tartrate 2.5 - 5 mg 07/21/17 18:25 07/21/17 19:35 Lopressor Injection IVP 07/21/17 18:26 1.5 mg ONCE ONE Administration Midazolam HCl Confirm 07/16/17 09:42 Versed Administered 07/16/17 09:43 Dose 4 mg .ROUTE .STK-MED ONE Naloxone HCl 0.1 mg 07/17/17 13:15 Narcan IVP 07/17/17 14:15 Q2M PRN PACU Resp Rate <10/min Potassium Chloride 40 meq 07/17/17 05:14 07/17/17 05:27 Klor-Con PO 07/17/17 05:15 40 meq ONCE ONE Administration Potassium Chloride 20 meq 07/21/17 11:15 07/23/17 21:25 Potassium Chloride Oral Liquid PO 01/17/18 11:14 20 meq BID HERNAN Administration Pregabalin 50 mg 07/11/17 09:00 07/11/17 10:59 Lyrica PO 01/07/18 08:59 Not Given BID HERNAN Pregabalin 25 mg 07/11/17 21:00 07/23/17 21:25 Lyrica PO 01/07/18 20:59 25 mg BID HERNAN Administration Propofol Confirm 07/17/17 13:11 Diprivan Administered 07/17/17 13:12 Dose 200 mg .ROUTE .STK-MED ONE Sodium Polystyrene Sulfonate 30 gm 07/11/17 10:25 07/11/17 13:39 Kayexalate PO 07/11/17 10:26 Not Given ONCE ONE Vancomycin HCl 1 each 07/12/17 10:45 Vancomycin Pharmacy To Dose, 10-15 Mcg/Ml [facility] 01/08/18 10:44 AD [facility] Protocol Verapamil HCl 2.5 mg 07/17/17 08:45 07/17/17 08:57 Verapamil Hcl IVP 07/17/17 08:46 2.5 mg ONCE ONE Administration Physical Exam - Physical Exam General Appearance: alert, no apparent distress Respiratory: lungs clear, normal breath sounds Cardiac/Chest: regular rate, rhythm Abdomen: normal bowel sounds, non-tender, soft Skin: normal color, warm/dry Neuro/Psych: alert, normal mood/affect, oriented x 3 ICD10 Worksheet Patient Problems: Problems Problem Status Onset Renal insufficiency Acute Serum potassium elevated Acute Chronic Disease Managment/Transitional Care Program Acute Pneumonia Acute
[2017-07-24] MEDS ORDERED: MAGNESIUM SULF 1 GM/DEXTROSE 100 ML IV ONE (15:00)
--- NOTE | 2017-07-24 15:36 | ASMTCMCOM ---
CM Note CM Note Notes: 07/24/2017 Case Management Note: Palliative Consult ordered today. Please see Palliative Note for details. Case Management d/c poc: remains [facility] when medically stable. Contacted Shannon at [facility] w/update re: changes in medical condition. Case Management to follow. Date Signed: 07/24/2017 03:35 PM Electronically Signed By:Ana Adam RN
[2017-07-24] MEDS: WARFARIN SODIUM 5 MG TAB PO SCH (16:21)
[2017-07-24] MEDS ORDERED: AMIODARONE A.FIB-18HR INFSN (ORDER 3/3) IV ONE (17:00)
--- NOTE | 2017-07-24 17:27 | PDPCPN ---
Palliative Care Progress Note Assessment/Plan: Referring provider: Dr Mora Reason for consult: Complex medical decision making Symptom control HPI: Makenzie Clark is a 87 yo female with PMH hypothyroidism, HTN, af, and bronchiectasis admitted to the hospital for hyperkalemia and acute kidney failure. Hospitalization complicated by a flutter, hypotension requiring pacemaker and now GI bleed s/p blood transfusion. EGD negative for source of bleed, monitoring H/H. Palliative care consulted for complex medical decision making. Met with Makenzie and her daughter Kristina at the bedside this morning. Makenzie shared that she has many past time she enjoys. She has declined a bit for about the past year per her daughter. She feels her mind is still very active but her body is tired and not as strong as she once was. She enjoys reading as well as going to cultural events. She very much has a lot of support from family and has a great granddaughter due in December that she is setting as a goal to make it to. We spoke of her goals as well as quality of life. She feels she still has a good quality of life but wishes her body could have more energy to support the energy of her mind. She feels even if she needed some additional care she would want to be at home as much as possible. We discussed if she did not get better what she might want. She stated if she could not engage with her family then she would not want any life prolonging measures. Filled out a MOST form with selective measures. She understands her medical situation well and has support of family helping her make decisions about the best care. Assessment: Physical: - Pain: none -tylenol PRN - Dyspnea: on chronic O2 - oxygen as needed - fan can help subjective dyspnea if needed - on nebs - weakness - PT/OT Emotional/psychological: doing ok, has a lot of support from family. Advanced Care Planning: Is patient decisional?: Yes Code Status: DNR/DNI- MOST form filled out POA: son in law Aime is MDPOA. Plan: is hopeful she can recover close back to her baseline. Quality of life to her means being able to be engaged with family and be at home even if this meant having additional support at home. If she were not awake and able to engage she would not want to continue life prolonging measures. Subjective: I'm feeling ok Objective: Social History: for 25 years. 4 daughters all involved. Lives at home with 2 grandsons. Enjoys reading, going to art and culture museums and working with her herbs/cooking. Medication list reviewed ROS: General: fatigue, weakness ENT: negative Resp: negative GI: negative : negative MS: negative Skin: negative Neuro: negative Psych: negative Functional assessment: PPS: 60% Functional status: needs some assistance with ADLs. Vital Signs Temp Pulse Resp BP Pulse Ox 36.8 C 135 H 22 H 84/51 L 93 07/24/17 15:52 07/24/17 15:52 07/24/17 15:52 07/24/17 15:52 07/24/17 15:52 Laboratory Results 07/24/17 09:15 07/24/17 09:15 07/23/17 07/24/17 07/25/17 05:59 05:59 05:59 Intake Total 660 1520 305 Output Total 500 1275 675 Balance 160 245 -370 PT 15.9 SEC (12.0-15.0) H 07/24/17 03:47 INR 1.27 (0.83-1.16) H 07/24/17 03:47 Physical Exam - Physical Exam General Appearance: alert, no apparent distress Respiratory: No respiratory distress Skin: normal color, warm/dry Extremities: No pedal edema Neuro/Psych: alert, oriented x 3 ICD10 Worksheet Patient Problems: Problems Problem Status Onset Palliative care encounter Acute Renal insufficiency Acute Serum potassium elevated Acute Chronic Disease Managment/Transitional Care Program Acute Pneumonia Acute - ICD10 Problem Qualifiers (1) Palliative care encounter
[2017-07-24] MEDS ORDERED: NOREPINEPHRINE/NS 500 ML IV SCH (18:00)
--- NOTE | 2017-07-24 18:17 | HOSPPROG ---
Hospitalist Progress Note Assessment/Plan: Addendum 17:45 BP improved earlier today, but now persistent hypotension, UA positive Most recent BP SBP 90, MAP 70. Given tenuous state, transfer to ICU 1.Severe sepsis/shock: source, new UTI. IV ceftriaxone, culture pending. Stat lactate. PICC line ordered. Transfer to ICU for sepsis protocol. Volume overloaded, so dose additional albumin 2. UTI: IV ceftriaxone Critical care time spent: 35 min reviewing labs,coordinating PICC and ICU transfer Subjective: no melena or BRBPR Objective: Vital Signs Temp Pulse Resp BP Pulse Ox 36.8 C 135 H 22 H 84/51 L 93 07/24/17 15:52 07/24/17 15:52 07/24/17 15:52 07/24/17 15:52 07/24/17 15:52 Laboratory Results 07/24/17 09:15 07/24/17 09:15 07/23/17 07/24/17 07/25/17 05:59 05:59 05:59 Intake Total 660 1520 305 Output Total 500 1275 675 Balance 160 245 -370 PT 15.9 SEC (12.0-15.0) H 07/24/17 03:47 INR 1.27 (0.83-1.16) H 07/24/17 03:47 ICD10 Worksheet Patient Problems: Problems Problem Status Onset Palliative care encounter Acute Renal insufficiency Acute Serum potassium elevated Acute Chronic Disease Managment/Transitional Care Program Acute Pneumonia Acute
[2017-07-24 18:25] LABS: HEMATOCRIT 25.5 % (38.0-47.0); HEMOGLOBIN 8.1 g/dL (12.6-16.3); MEAN CELL HEMOGLOBIN 30.9 pg (27.9-34.1); MEAN CELL HEMOGLOBIN CONCENTR. 31.8 g/dL (32.4-36.7); MEAN CELL VOLUME 97.3 fL (81.5-99.8); RED BLOOD CELL COUNT 2.62 10^6/uL (4.18-5.33); RED CELL DISTRIBUTION WIDTH 18.5 % (11.5-15.2)
--- NOTE | 2017-07-24 18:41 | PDCARPN ---
Cardiology Progress Note Chief Complaint: Patient reports fatigue symptoms Assessment/Plan: Assessment: 87-year-old female admitted on July 11 for hyperkalemia. With significant past history that includes hypothyroidism, diabetes, hypertension, bronchitis on chronic O2, atrial fibrillation, venous insufficiency. Initially seen by our practice by Dr. Schwartz developing atrial flutter with a variable AV block and atrial tachycardia. Did experience a 12 second pause with loss of consciousness. Due to this beta-shantanu was discontinued, and ultimately she had a permanent pacemaker implantation done by Dr. Schwartz on 05/15/2017. She was started on diltiazem for rate control, she was started on oral anticoagulation of warfarin. Unfortunately, patient has had anemia issues, requiring 4 units of packed red blood cells since hospital admission. She has had an EGD done by Dr. Atkins, which was normal. Patient did not want to undergo colonoscopy. H& H is still slowly dropping. She still remains on anticoagulation of Lovenox with subtherapeutic INRs on warfarin. We have been reconsulted today due to AFib is significantly more faster, and she has been hypotensive with systolic in the 80s. She has been found to have a new UTI with concerns of septic shock. Patient denies of any chest pressure or pain. Reports no significant palpitations. Plan: 1. AFib with RVR and hypotension: This is probably compounded by her anemia, and urinary tract infection. Have discussed with Dr. Rich, and recommended patient be started on amiodarone protocol for better rate control. Patient does continue to remain on Lovenox for anticoagulation. Risk of medications were explained to both patient and daughter. 2. Sick sinus syndrome: Permanent pacemaker implantation done, incision site without signs of infection, healing with Tegaderm strips. Device is to be checked by rep today, for 1 week post device implanted 3. Sepsis: Patient is scheduled to have PICC line implantation done, and transfer to ICU for closer monitoring. Started on antibiotic therapy 4. Anemia: Upper EGD done with no significant findings. Patient refusing colonoscopy at this time. Continue monitoring H&H. 5. Hypotension: Diltiazem and diuretic therapy held today 07/24/17 18:41 Subjective: Patient denies of any chest pressure, pain, shortness of breath, lightheadedness , or palpitations. Reporting that her peripheral edema is worsening again after stopping diuretic therapy. Reviewed/Discussed With: hospitalist (Dr Mora), other (Dr Rich) Objective: Vital Signs (8 Hrs) Temp Pulse Resp BP Pulse Ox 07/24/17 15:52 36.8 C 135 H 22 H 84/51 L 93 07/24/17 11:52 36.6 C 112 H 18 90/49 L 91 L Intake/Output (24 Hrs) 07/23/17 07/24/17 07/25/17 05:59 05:59 05:59 Intake Total 660 1520 605 Output Total 500 1275 850 Balance 160 245 -245 Intake: Oral (ml) 660 920 IV Intake (ml) 500 IV Infused (ml) 100 605 Albumin 25% 100 ml @ As 100 Directed IV ONCE ONE Rx#: [id number] Amiodarone HCl 100 ml @ 100 600 mls/hr IV ONCE ONE Rx #:[id number] Amiodarone HCl 200 ml @ 200 33.333 mls/hr IV ONCE ONE Rx#:[id number] Magnesium Sulf 1 gm/ 100 Dextrose 100 ml @ 100 mls /hr IV ONCE ONE Rx#: [id number] Magnesium Sulf 1 gm/ 100 Dextrose 100 ml @ 100 mls /hr IV ONCE ONE Rx#: [id number] cefTRIAXone 1 GM/DEXTROSE 105 50 ml @ 100 mls/hr IV DAILY [facility] Rx#:[id number] Output: Urine (ml) 500 1275 850 Bedside Commode 200 775 450 Toilet 300 500 400 Other: Intake Quantity Yes Yes Sufficient Number of Voids Bedside Commode 2 Incontinence 2 2 1 Toilet 4 1 Number of Stools Toilet 2 1 Result Diagrams: 07/24/17 18:15 07/24/17 09:15 - Physical Exam Constitutional: no apparent distress Ears, Nose, Mouth, Throat: moist mucous membranes Cardiovascular: irregularly irregular, jugular vein distention (4-5 cm above sternal notch at a 90 degree angle), pulses symmetric bilat, No carotid bruit Peripheral Pulses: 1+: dorsalis-pedis (R), dorsalis-pedis (L), 2+: carotid (R), carotid (L) Respiratory: other (Lungs are clear but diminished in bases bilateral, no rhonchi, rales, or wheezing noted) Gastrointestinal: normoactive bowel sounds Skin: other (Pacemaker implantation site, left anterior chest, distal to clavicle, intact with Steri-Strips, no redness, swelling, or drainage.), No no edema (+2 to 3 peripheral edema bilateral lower extremities to knees.) Neurologic: AAOx3 Psychiatric: cooperative, interactive, following commands ICD10 Worksheet Patient Problems: Problems Problem Status Onset Pneumonia Acute Chronic Disease Managment/Transitional Care Program Acute Renal insufficiency Acute Serum potassium elevated Acute Palliative care encounter Acute
[2017-07-24] MEDS: NOREPINEPHRINE BITARTRATE 4 MG in D5W 500 ML IV SCH (23:28)
[2017-07-25] MEDS: LEVOTHYROXINE 50 MCG TAB PO SCH (05:31)
[2017-07-25 05:44] LABS: INR 1.23 (0.83-1.16); PROTIME(PATIENT) 15.5 SEC (12.0-15.0)
[2017-07-25 05:52] LABS: HEMATOCRIT 20.1 % (38.0-47.0); MEAN CELL HEMOGLOBIN 30.8 pg (27.9-34.1); MEAN CELL HEMOGLOBIN CONCENTR. 31.8 g/dL (32.4-36.7); MEAN CELL VOLUME 96.6 fL (81.5-99.8); RED BLOOD CELL COUNT 2.08 10^6/uL (4.18-5.33); RED CELL DISTRIBUTION WIDTH 17.8 % (11.5-15.2)
[2017-07-25 05:59] LABS: HEMOGLOBIN 6.4 g/dL (12.6-16.3)
[2017-07-25 06:01] LABS: ANION GAP 14 mEq/L (8-16); CALCIUM 8.6 mg/dL (8.5-10.4); CARBON DIOXIDE 27 mEq/l (22-31); CHLORIDE 98 mEq/L (97-110); CREATININE 0.9 mg/dL (0.6-1.0); GLOMERULAR FILTRATION RATE 59; GLUCOSE 216 mg/dL (70-100); POTASSIUM 3.9 mEq/L (3.5-5.2); SODIUM 139 mEq/L (134-144)
[2017-07-25] MEDS: NOREPINEPHRINE BITARTRATE 4 MG in D5W 500 ML IV SCH ×2 (06:17→15:25)
[2017-07-25] MEDS: IPRATROPIUM/ALBUTEROL 3 ML DEYVIAL IH SCH ×4 (06:25→23:24)
[2017-07-25] MEDS: INSULIN LISPRO 100 UNIT/1 ML VIAL STANDARD SC SCH ×3 (08:03→18:06)
[2017-07-25] MEDS: DILTIAZEM CD 180 MG CAP PO SCH (08:05)
[2017-07-25] MEDS: MULTIVITAMINS 1 EACH TAB PO SCH (08:05)
[2017-07-25] MEDS: SENNOSIDES/DOCUSATE SODIUM TAB PO SCH ×2 (08:05→21:57)
--- NOTE | 2017-07-25 09:29 | PDCARPN ---
Cardiology Progress Note Chief Complaint: Patient states that she is doing alright today. No complaints of pain. Assessment/Plan: Assessment: Patient is an 87 y/o female with history of DM, HTN, atrial fibrillation (not on anticoagulation at present given anemia, [id number] score of 5), SSS s/p PPM recently (after symptomatic 12 second pause), hypothyroidism, bronchitis with chronic supplemental oxygen use, and GI bleed (after start on warfarin) who was admitted on 07-11-17 with hyperkalemia. Upper GI endoscopy without identification of the source (lower endoscopy was refused). UTI has also recently been identified, and is in the process of antibiotic treatment. Amiodarone was chosen over other medical therapies given the lack of secondary hypotension. Anticoagulation with Lovenox was implemented for CVA and DVT prophylaxis given the history. It appears that the fifth unit of PRBC is being transfused today after abrupt drop in hemaglobin/haematocrit was noted this morning (6.4 g/dL), down from 8.1 g/dL. I suspect that the elevation in heart rates noted was secondary to the anemia that was evolving given the labs noted today. Plan: (1) Ongoing transfusion for the anemia appreciated this morning (2) Would continue amiodarone for assistance with rate control (3) Some CVA protection has been achieved with the Lovenox, but at the expense of the precipitous drop in H/H noted today (4) Pacer interrogation in the outpatient setting (5) Aggressive antibiotic therapy for UTI given the freshly implanted pacer (6) Cardiology will continue to follow patient over hospital stay - appreciate palliative care note Subjective: No cardiovascular complaints today, but patient feeling a little worse today ( query the degree of anemia noted) Reviewed/Discussed With: family, hospitalist, multidisciplinary team Objective: Vital Signs (8 Hrs) Temp Pulse Resp BP Pulse Ox 07/25/17 08:00 36.9 C 120 H 19 126/67 H 100 07/25/17 07:00 110 H 15 123/63 H 98 07/25/17 06:00 106 H 20 105/67 07/25/17 05:00 130 H 20 113/66 100 07/25/17 04:00 115 H 20 120/58 L 100 07/25/17 03:00 36.9 C 112 H 20 119/70 100 07/25/17 02:00 111 H 20 116/49 L 95 Intake/Output (24 Hrs) 07/24/17 07/25/17 07/26/17 05:59 05:59 05:59 Intake Total 1520 2105 Output Total 1275 1250 Balance 245 855 Intake: Oral (ml) 920 200 IV Intake (ml) 500 IV Infused (ml) 100 1905 Albumin 25% 100 ml @ As 100 Directed IV ONCE ONE Rx#: [id number] Amiodarone HCl 100 ml @ 100 600 mls/hr IV ONCE ONE Rx #:[id number] Amiodarone HCl 200 ml @ 200 33.333 mls/hr IV ONCE ONE Rx#:[id number] Magnesium Sulf 1 gm/ 100 Dextrose 100 ml @ 100 mls /hr IV ONCE ONE Rx#: [id number] Magnesium Sulf 1 gm/ 100 Dextrose 100 ml @ 100 mls /hr IV ONCE ONE Rx#: [id number] Ns 1,000 ml @ 100 mls/hr 1300 IV CONT [facility] Rx#: [id number] cefTRIAXone 1 GM/DEXTROSE 105 50 ml @ 100 mls/hr IV DAILY [facility] Rx#:[id number] Output: Urine (ml) 1275 1250 Bedpan 400 Bedside Commode 775 450 Toilet 500 400 Other: Intake Quantity Yes Sufficient Number of Voids Bedside Commode 2 Incontinence 2 1 Toilet 1 Number of Stools Toilet 1 Result Diagrams: 07/25/17 05:20 07/25/17 05:20 Telemetry: atrial fibrillation/flutter with rapid ventricular response. Echocardiogram: normal LVEF with diastolic dysfunction and moderate TR. - Physical Exam Constitutional: WDWN, no apparent distress Eyes: PERRL, EOMI Ears, Nose, Mouth, Throat: moist mucous membranes Cardiovascular: irregularly irregular (tachycardia), jugular vein distention, pulses symmetric bilat Peripheral Pulses: 2+: dorsalis-pedis (R), dorsalis-pedis (L) Respiratory: clear to auscultate bilat, reduced air movement Gastrointestinal: normoactive bowel sounds Skin: no rashes, other (trace edema) Musculoskeletal: no muscular tenderness, no joint effusions Neurologic: AAOx3, CN II-XII grossly intact Psychiatric: cooperative, interactive, following commands ICD10 Worksheet Patient Problems: Problems Problem Status Onset Palliative care encounter Acute Renal insufficiency Acute Serum potassium elevated Acute Chronic Disease Managment/Transitional Care Program Acute Pneumonia Acute
--- NOTE | 2017-07-25 11:27 | HOSPPROG ---
Hospitalist Progress Note Assessment/Plan: # acute anemia - elevated BUN suspicious for UGIB; EGD from 07/17 reviewed - no source identified - transfusion 1U PRBC, recheck H/H - likely needs second unit - hold lovenox and warfarin - GI to eval today # shock - sepsis (possible UTI) vs hypovolemia - cont levophed, transfuse - check eugenio-stim test (previous cortisol 12 may indicate relative adrenal insuf) # UTI - urine culture pending - rocephin # atrial fib/flutter with RVR - amiodarone gtt - hold lovenox given possible UGIB # bronchiectasis/chronic resp failure - on home O2 # diastolic dysfunction - holding diuresis with hypotension # asystole s/p ppm # acute renal failure/hyperkalemia - resolved # DM2 - SSI, holding metformin # severe protein malnutrition 40 minutes of floor/bedside CC time managing shock requiring pressors/ transfusion Objective: Vital Signs Temp Pulse Resp BP Pulse Ox 36.9 C 111 H 19 102/70 100 07/25/17 08:00 07/25/17 10:00 07/25/17 10:00 07/25/17 10:00 07/25/17 10:00 Laboratory Results 07/25/17 05:20 07/25/17 05:20 07/24/17 07/25/17 07/26/17 05:59 05:59 05:59 Intake Total 1520 2105 Output Total 1275 1250 Balance 245 855 PT 15.5 SEC (12.0-15.0) H 07/25/17 05:20 INR 1.23 (0.83-1.16) H 07/25/17 05:20 ICD10 Worksheet Patient Problems: Problems Problem Status Onset Pneumonia Acute Chronic Disease Managment/Transitional Care Program Acute Renal insufficiency Acute Serum potassium elevated Acute Palliative care encounter Acute
[2017-07-25 11:51] LABS: HEMATOCRIT 22.5 % (38.0-47.0); HEMOGLOBIN 7.2 g/dL (12.6-16.3)
[2017-07-25] MEDS: ENOXAPARIN 60 MG/0.6 ML SYR SC SCH (12:08)
[2017-07-25] MEDS: AMIODARONE HCL 200 ML IV SCH (13:22)
--- NOTE | 2017-07-25 13:29 | SOAPPROG ---
[facility] Progress Note Assessment/Plan: Assessment:Plan: 1) decreased Hb/HCt and increased BUN c/w UGI bleed, discussed with Dr. Jesus - will need repeat EGD today with anesthesia 2) anemia - acute post hemorrhagic - EGD, PPI, PRBC x 2 as per hospitalists 3) anticoagulation - on hold 4) Afib - amiodarone IV now, maybe PO later high risk pt for EGD will need anesthesia 07/25/17 13:30 Subjective: CC- acute post hemorrhagic anemia' a fib pt is feeling OK, no CP, no abdo pain, no melena or overt blood loss yet Objective: Vital Signs Temp Pulse Resp BP Pulse Ox 36.7 C 104 H 20 110/55 L 100 07/25/17 12:00 07/25/17 12:00 07/25/17 12:00 07/25/17 12:00 07/25/17 12:00 Laboratory Results 07/25/17 11:45 07/25/17 05:20 07/24/17 07/25/17 07/26/17 05:59 05:59 05:59 Intake Total 1520 2105 Output Total 1275 1250 Balance 245 855 PT 15.5 SEC (12.0-15.0) H 07/25/17 05:20 INR 1.23 (0.83-1.16) H 07/25/17 05:20 A+O CTA S1S2, irreg irreg tachy +BS, soft minimal epi tenderness Laboratory Tests 07/21/17 07/23/17 07/24/17 04:05 03:59 03:47 Hgb BUN 27 H 33 H 65 H 07/24/17 07/24/17 07/24/17 09:15 09:15 18:15 Hgb 8.6 L 8.1 L BUN 67 H 07/25/17 07/25/17 07/25/17 05:20 05:20 11:45 Hgb 6.4 L 7.2 L BUN 83 H ICD10 Worksheet Patient Problems: Problems Problem Status Onset Palliative care encounter Acute Renal insufficiency Acute Serum potassium elevated Acute Chronic Disease Managment/Transitional Care Program Acute Pneumonia Acute
[2017-07-25] MEDS ORDERED: ALBUTEROL 3 ML DEYVIAL IH PRN (14:08)
[2017-07-25] MEDS ORDERED: NALOXONE HCL 0.4 MG/ML INJ IVP PRN (14:08)
[2017-07-25] MEDS ORDERED: ONDANSETRON 4 MG/2 ML VIAL IVP PRN (14:08)
--- NOTE | 2017-07-25 14:08 | PDANEPAE ---
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 Pacemaker Model: ASSURITY MRI ANE Patient History - Allergies Allergies/Adverse Reactions: levofloxacin [Levofloxacin] Allergy (Verified 07/10/17 22:00) Rash - Home Medications Home Medications: Metformin HCl [Metformin 1000 mg] 1,000 mg PO BID 01/09/14 [Last Taken 07/10/17 09:00] Metoprolol Tartrate [Lopressor 25 mg (RX)] 25 mg PO BID 01/09/14 [Last Taken 11/25 09:00] Furosemide [Lasix 20 MG (*)] 20 mg PO DAILY 07/10/17 [Last Taken 07/10/17] Levothyroxine [Synthroid 50 mcg (*)] 50 mcg PO DAILY06 07/10/17 [Last Taken 11/25] Multivitamins [Multivitamin (*)] 1 each PO DAILY 07/10/17 [Last Taken 07/10/17] Pregabalin [Lyrica 50mg (*)] 50 mg PO BID 07/10/17 [Last Taken 07/10/17 09:00] - NPO status NPO Since - Liquids (Date): 07/16/17 NPO Since - Liquids (Time): 18:00 NPO Since - Solids (Date): 07/16/17 NPO Since - Solids (Time): 18:00 - Smoking Hx Smoking Status: Never smoked - Alcohol Use Alcohol Use: None ANE Labs/Vital Signs - Labs Result Diagrams: 07/25/17 11:45 07/25/17 05:20 - Vital Signs Blood Pressure: 116/88 Heart Rate: 104 Respiratory Rate: 14 O2 Sat (%): 100 Height: 165.1 cm Weight: 64 kg ANE Physical Exam - Airway Neck exam: FROM Mallampati Score: Class 2 - Pulmonary Pulmonary: clear to auscultation - Cardiovascular Cardiovascular: regular rate and rhythym - ASA Status ASA Status: III ANE Anesthesia Plan Anesthesia Plan: general endotracheal anesthesia
[2017-07-25] MEDS ORDERED: PROPOFOL 200 MG/20 ML VIAL ONE (14:37)
[2017-07-25] MEDS ORDERED: LIDOCAINE 2% 5 ML SDV ONE (14:37)
[2017-07-25] MEDS: AMIODARONE HCL 200 MG TAB PO SCH (15:21)
--- NOTE | 2017-07-25 15:35 | GIREPORT ---
[facility] Surgical Services - Endoscopy Department Patient Name: Makenzie Clark Procedure Date: 07/25/2017 2:02 PM Patient Type: Inpatient Attending / ER Physician: David Schofield MD Procedure: Upper GI endoscopy Indications: Acute post hemorrhagic anemia, Suspected upper gastrointestinal bleeding Providers: David Schofield MD Medicines: Propofol per Anesthesia Complications: No immediate complications. Estimated blood loss: None. Findings: The examined esophagus was normal. Diffuse mild inflammation characterized by adherent blood, erythema and friability was found in the stomach. A large hiatal hernia was present. A single small sessile polyp with no bleeding and no stigmata of recent bleeding was found on the greater curvature of the stomach. Localized mucosal changes characterized by erythema and an increased vascular pattern were found in the duodenum. The exam was otherwise without abnormality. Estimated Blood Loss: Estimated blood loss: none. Post Op Diagnosis: - Normal esophagus. - Large hiatal hernia. - Gastritis. - Mucosal changes in the duodenum. Query vascular ectasia vs trauma from scope as I only saw it on the third time down the duodenum. - The examination was otherwise normal. - No specimens collected. Recommendation: - Check hemoglobin q 6 hours for one day. - Do a GI bleeding (tagged RBC) scan if symptoms persist. - If she stops bleeding, I would recommend an out patient capsule study of her small bowel. - Hold anti-coagulation for now. Will discuss with hospitlaist - Return patient to ICU for ongoing care. - Thank you for allowing me to help in your patient's care. Do not hesitate to call with any questions. Attending Participation: I personally performed the entire procedure. Kanwal Hernandez M.D David Schofield MD 07/25/2017 3:35:08 PM Number of Addenda: 0 Note Initiated On: 07/25/2017 2:02 PM Total Procedure Duration Time 0 hours 13 minutes 37 seconds [email or web address]
[2017-07-25 17:21] LABS: HEMATOCRIT 25.6 % (38.0-47.0); HEMOGLOBIN 8.6 g/dL (12.6-16.3)
[2017-07-25] MEDS: CEFEPIME HCL 2 GM in D5W 100 ML IV SCH ×2 (17:21→21:57)
[2017-07-26] MEDS: AMIODARONE HCL 200 ML IV SCH (00:04)
--- NOTE | 2017-07-26 00:10 | CPEKG ---
Heart Rate: 68 RR Interval: 882 P-R Interval: 232 QRSD Interval: 104 QT Interval: 408 QTC Interval: 434 P Bowie: 116 QRS Bowie: 75 T Wave Bowie: 228 EKG Severity - ABNORMAL ECG - EKG Impression: ATRIAL TACHYCARDIA VERSUS FLUTTER PATTERN EKG Impression: LOW VOLTAGE IN FRONTAL LEADS EKG Impression: NONSPECIFIC T ABNORMALITIES, DIFFUSE LEADS Electronically Signed By: Praveen Park 26-Jul-2017 12:05:58
[2017-07-26] MEDS: NOREPINEPHRINE BITARTRATE 4 MG in D5W 500 ML IV SCH (05:23)
[2017-07-26] MEDS: CEFEPIME HCL 2 GM in D5W 100 ML IV SCH ×3 (05:23→22:10)
[2017-07-26] MEDS: NS 1,000 ML IV SCH (05:23)
[2017-07-26] MEDS: IPRATROPIUM/ALBUTEROL 3 ML DEYVIAL IH SCH (05:43)
[2017-07-26] MEDS ORDERED: COSYNTROPIN 0.25 MG/2 ML SYRINGE IVP ONE (06:00)
[2017-07-26 06:31] LABS: % IMMATURE GRANULYOCYTES 0.8 % (0.0-1.1); ABSOLUTE NRBC COUNT 0.05 10^3/uL (0-0.01); ADD DIFF? NO; ADD MORPH? NO; ADD SCAN? NO; ATYPICAL LYMPHOCYTE FLAG 0 (0-99); FRAGMENT RBC FLAG 0 (0-99); HEMATOCRIT 25.1 % (38.0-47.0); HEMOGLOBIN 8.2 g/dL (12.6-16.3); LEFT SHIFT FLG 0 (0-99); LIPEMIA HEMOLYSIS FLAG 80 (0-99); MEAN CELL HEMOGLOBIN 30.4 pg (27.9-34.1); MEAN CELL HEMOGLOBIN CONCENTR. 32.7 g/dL (32.4-36.7); MEAN PLATELET VOLUME 9.7 fL (8.7-11.7); NRBC-AUTO% 0.4 % (0.0-0.2); PLATELET CLUMPS FLAG 0 (0-99); PLATELET COUNT 232 10^3/uL (150-400); RED CELL DISTRIBUTION WIDTH 19.2 % (11.5-15.2)
[2017-07-26 06:43] LABS: INR 1.09 (0.83-1.16)
[2017-07-26 06:48] LABS: ALANINE AMINOTRANSFERASE 26 IU/L (9-52); ALBUMIN 2.7 g/dL (3.5-5.0); ALKALINE PHOSPHATASE 75 IU/L (38-126); ANION GAP 11 mEq/L (8-16); ASPARTATE AMINOTRANSFERASE 20 IU/L (14-46); BILIRUBIN,TOTAL 0.5 mg/dL (0.1-1.4); CALCIUM 8.5 mg/dL (8.5-10.4); CARBON DIOXIDE 29 mEq/l (22-31); CHLORIDE 99 mEq/L (97-110); CREATININE 0.8 mg/dL (0.6-1.0); GLOMERULAR FILTRATION RATE > 60; GLUCOSE 178 mg/dL (70-100); POTASSIUM 2.9 mEq/L (3.5-5.2); SODIUM 139 mEq/L (134-144); TOTAL PROTEIN 5.5 g/dL (6.3-8.2)
[2017-07-26] MEDS: LEVOTHYROXINE 50 MCG TAB PO SCH (07:00)
[2017-07-26] MEDS: INSULIN LISPRO 100 UNIT/1 ML VIAL STANDARD SC SCH ×3 (09:43→19:06)
[2017-07-26] MEDS: MULTIVITAMINS 1 EACH TAB PO SCH (09:43)
[2017-07-26] MEDS: SENNOSIDES/DOCUSATE SODIUM TAB PO SCH ×2 (09:44→20:33)
[2017-07-26] MEDS ORDERED: PROTOCOL POTASSIUM 1 DOSE MISC PRN (10:24)
[2017-07-26] MEDS ORDERED: IPRATROPIUM/ALBUTEROL 3 ML DEYVIAL IH PRN (10:26)
--- NOTE | 2017-07-26 11:51 | PDCARPN ---
Cardiology Progress Note Chief Complaint: Patient feeling well today. No active cardiovascular complaints. Family was present at bedside. Assessment/Plan: Assessment: 07-26-17 Patient doing well today. Overnight, the patient converted from atrial fibrillation to normal sinus rhythm. Patient can not tell the difference when in or out of atrial fibrillation. Amiodarone has continued as well as diltiazem. Transfusion with PRBC yesterday resulted in elevated of H/H to about 8 g/dL. No cardiovascular complaints of chest pains or pressure. No PND or orthopnea. 07-25-17 Patient is an 87 y/o female with history of DM, HTN, atrial fibrillation (not on anticoagulation at present given anemia, [id number] score of 5), SSS s/p PPM recently (after symptomatic 12 second pause), hypothyroidism, bronchitis with chronic supplemental oxygen use, and GI bleed (after start on warfarin) who was admitted on 07-11-17 with hyperkalemia. Upper GI endoscopy without identification of the source (lower endoscopy was refused). UTI has also recently been identified, and is in the process of antibiotic treatment. Amiodarone was chosen over other medical therapies given the lack of secondary hypotension. Anticoagulation with Lovenox was implemented for CVA and DVT prophylaxis given the history. It appears that the fifth unit of PRBC is being transfused today after abrupt drop in hemaglobin/haematocrit was noted this morning (6.4 g/dL), down from 8.1 g/dL. I suspect that the elevation in heart rates noted was secondary to the anemia that was evolving given the labs noted today. Plan: (1) Would continue therapy on Amiodarone and Diltiazem as at present for rate and rhythm control assistance. (2) Antibiotic therapy for recommended duration (3) Would refrain from any anticoagulation at this time - there is too elevated a risk in this acute setting for further bleeding - the patient and family understand that there is a very elevated risk for CVA , especially with the recent conversion from atrial fibrillation to normal sinus rhythm (4) Outpatient pacer interrogation to be maintained (5) Cardiology will continue to follow this patient while in house Subjective: No cardiovascular complaints. Reviewed/Discussed With: family, hospitalist, multidisciplinary team Objective: Vital Signs (8 Hrs) Pulse Resp BP Pulse Ox 07/26/17 07:00 67 13 104/58 L 98 07/26/17 06:00 60 21 H 118/63 99 07/26/17 05:00 90 20 115/66 99 07/26/17 04:00 68 15 100/55 L 99 Intake/Output (24 Hrs) 07/25/17 07/26/17 07/27/17 05:59 05:59 05:59 Intake Total 2105 3579 Output Total 1250 800 Balance 855 2779 Intake: Oral (ml) 200 0 IV Intake (ml) 1500 IV Infused (ml) 1905 2079 Albumin 25% 100 ml @ As 100 Directed IV ONCE ONE Rx#: [id number] Amiodarone HCl 100 ml @ 100 600 mls/hr IV ONCE ONE Rx #:[id number] Amiodarone HCl 200 ml @ 200 33.333 mls/hr IV ONCE ONE Rx#:[id number] Amiodarone HCl 540 mg In 139 D5w 300 ml @ 16.667 mls/ hr IV ONCE ONE Rx#: [id number] Magnesium Sulf 1 gm/ 100 Dextrose 100 ml @ 100 mls /hr IV ONCE ONE Rx#: [id number] Norepinephrine Bitartrate 620 4 mg In D5w 500 ml @ Per Protocol IV CONT [facility] Rx# :[id number] Ns 1,000 ml @ 100 mls/hr 1300 1320 IV CONT [facility] Rx#: [id number] cefTRIAXone 1 GM/DEXTROSE 105 50 ml @ 100 mls/hr IV DAILY [facility] Rx#:[id number] Output: Urine (ml) 1250 800 Bedpan 400 800 Bedside Commode 450 Toilet 400 Other: Weight 64 kg Number of Voids Bedpan 4 Incontinence 1 3 Result Diagrams: 07/26/17 06:10 07/26/17 06:10 Telemetry: normal sinus rhythm - Physical Exam Constitutional: WDWN, healthy appearing, no apparent distress Eyes: PERRL, EOMI Ears, Nose, Mouth, Throat: moist mucous membranes Cardiovascular: regular rate and rhythm, systolic murmur, No jugular vein distention Peripheral Pulses: 2+: dorsalis-pedis (R), dorsalis-pedis (L) Respiratory: clear to auscultate bilat, no crackles, no wheezes Gastrointestinal: normoactive bowel sounds Skin: no rashes, no edema Musculoskeletal: no muscular tenderness Neurologic: AAOx3, CN II-XII grossly intact Psychiatric: cooperative, interactive, following commands ICD10 Worksheet Patient Problems: Problems Problem Status Onset Palliative care encounter Acute Renal insufficiency Acute Serum potassium elevated Acute Chronic Disease Managment/Transitional Care Program Acute Pneumonia Acute
--- NOTE | 2017-07-26 12:08 | HOSPPROG ---
Hospitalist Progress Note Assessment/Plan: # acute anemia - BUN coming down, H/H stable today - s/p EGD yesterday - possible area of ectasia in duodenum - unclear if scope trauma or a true lesion - no APC # shock - sepsis (possible UTI) vs hypovolemia - wean levophed, transfuse - check eugenio-stim test tomorrow (previous cortisol 12 may indicate relative adrenal insuf) # UTI - GNR NLF > 100k; rocephin changed to cefepime pending culture (could be psa) - cefepime - will not target low colony count of klebsiella # atrial fib/flutter with RVR - now in NSR - would like to start aspirin after off pressors # bronchiectasis/chronic resp failure - on home O2 # diastolic dysfunction - holding diuresis with hypotension # asystole s/p ppm # acute renal failure/hyperkalemia - resolved # DM2 - SSI, holding metformin # severe protein malnutrition Subjective: converted to sinus last night; feels very weak Objective: Vital Signs Temp Pulse Resp BP Pulse Ox 36.8 C 67 13 104/58 L 98 07/26/17 03:00 07/26/17 07:00 07/26/17 07:00 07/26/17 07:00 07/26/17 07:00 Laboratory Results 07/26/17 06:10 07/26/17 06:10 07/25/17 07/26/17 07/27/17 05:59 05:59 05:59 Intake Total 2105 3579 Output Total 1250 800 Balance 855 2779 PT 14.0 SEC (12.0-15.0) 07/26/17 06:10 INR 1.09 (0.83-1.16) 07/26/17 06:10 high risk - Physical Exam Constitutional: no apparent distress Cardiovascular: regular rate and rhythym, no murmur, rub, or gallop Respiratory: no respiratory distress, no rales or rhonchi, clear to auscultation Gastrointestinal: normoactive bowel sounds, soft, non-tender abdomen, no palpable masses ICD10 Worksheet Patient Problems: Problems Problem Status Onset Pneumonia Acute Chronic Disease Managment/Transitional Care Program Acute Renal insufficiency Acute Serum potassium elevated Acute Palliative care encounter Acute
[2017-07-26 13:28] LABS: POTASSIUM 2.8 mEq/L (3.5-5.2)
--- NOTE | 2017-07-26 13:46 | SOAPPROG ---
SOAP Progress Note Assessment/Plan: Assessment:Plan: 1) decreased Hb/HCt and increased BUN c/w UGI bleed, discussed with Dr. Jesus - will need repeat EGD today with anesthesia 2) anemia - acute post hemorrhagic - EGD, PPI, PRBC x 2 as per hospitalists 3) anticoagulation - on hold 4) Afib - amiodarone IV now, maybe PO later high risk pt for EGD will need anesthesia 07/25/17 13:30 07/26/17 13:42 as above EGD with minimal heme on area in duodenum that may have been scope trauma vs vasc ectasia Pt w/o melena, HB stable and BUN decreasing c/w no bleeding at present off anticoagulation for now in paroxysmal a fib 1) UGI bleed - I suspect proximal Sb lesion to account for her bleeding. If stable and no rebleed, then outpt capsule study of SB If bleeds then tagged rbc scan 2) anemia - better post 2 units PRBC, stable HB today 3) anticoagulation - on hold for now 4) A fib - in NSR at present Subjective: cc- UGI bleed with post hemorrhagic anemia Pt feeling OK, sitting in chair with family in room says no BM's today, no pain no n/v Objective: Vital Signs Temp Pulse Resp BP Pulse Ox 36.8 C 67 13 104/58 L 98 07/26/17 03:00 07/26/17 07:00 07/26/17 07:00 07/26/17 07:00 07/26/17 07:00 Laboratory Results 07/26/17 06:10 07/26/17 12:45 07/25/17 07/26/17 07/27/17 05:59 05:59 05:59 Intake Total 2105 3579 Output Total 1250 800 Balance 855 2779 PT 14.0 SEC (12.0-15.0) 07/26/17 06:10 INR 1.09 (0.83-1.16) 07/26/17 06:10 A+Ox3 Coarse BS S1S2, NSR +BS, soft nt Laboratory Tests 07/25/17 07/25/17 07/25/17 05:20 11:45 17:15 Hgb 7.2 L 8.6 L BUN 83 H 09/17/17 09/17/17 09/17/17 06:10 06:10 12:45 Hgb 8.2 L BUN 55 H 47 H ICD10 Worksheet Patient Problems: Problems Problem Status Onset Palliative care encounter Acute Renal insufficiency Acute Serum potassium elevated Acute Chronic Disease Managment/Transitional Care Program Acute Pneumonia Acute
[2017-07-26] MEDS: POTASSIUM Cl (KCl) 50 ML IV SCH ×3 (14:28→20:33)
--- NOTE | 2017-07-26 15:10 | PDINTPN ---
Drivers' Cash Clerk Progress Note Assessment/Plan: Assessment: 87 F with remote limited episode of afib, admitted 07/10/17 with hypokalemia and LAMONT after recent cellulitis treated with Bactrim. Cellulitis dx/rx after recent fall, the details of whoich are uncertain at the moment. She reported diarrhea ( none this admission) from the bactrim which was thought to be causative of hypovolemia and LAMONT as this improved with IVF and briefly dopamine. Hyperkalemia resolved with HCO3, insulin, D50 in ER (though complicated by hypoglycemia and drop in BP). When she developed relative tachycardia off metoprolol, this was resumed followed by transfer to PCU. On 07/14/17, she had a syncopal episode while transferring to a chair associated with a long sinus pause on tele (reported between 5 and 12 seconds), so was started on dopamine and transferred back to ICU. She had a PPM placed 07/16. * Anemia- THE patinet has had endoscopy x2 with no source of bleeding identified. ? Small bowel source, which will require outpatient capsule endoscopy. * Cellulitis- Resolved. * AF: In and out of AF. On amiodorone. No anticoagulation due to GIB/anemia. * UTI: Changed to Cefepime while awaiting culture/sensitivity. * Hypotension: Mild, on NE, which has just been weaned off. * Hypoxia- Mild and improving * Bronchiectasis- at her baseline O2 requirement ( 4lpm) with good saturations * NADIYA- Continue to use her home device * LAMONT- Resolved * DM- BG controlled Plan: Hopefully can remain off NE. Await Cx/sensitivities on GNR in urine. Consider ASA for AF. ? Tx to tele if doing well off NE. 07/26/17 15:11 Subjective: Feels strength is a bit better. Denies dyspnea/cough. Objective: Vital Signs Temp Pulse Resp BP Pulse Ox 36.5 C 87 18 118/56 L 98 07/26/17 08:00 07/26/17 14:00 07/26/17 14:00 07/26/17 14:00 07/26/17 14:00 Laboratory Results 07/26/17 06:10 07/26/17 12:45 07/25/17 07/26/17 07/27/17 05:59 05:59 05:59 Intake Total 2105 3579 Output Total 1250 800 Balance 855 2779 PT 14.0 SEC (12.0-15.0) 07/26/17 06:10 INR 1.09 (0.83-1.16) 07/26/17 06:10 Physical Exam - Physical Exam General Appearance: alert, no apparent distress EENT: normal ENT inspection Neck: normal inspection Respiratory: lungs clear, normal breath sounds Cardiac/Chest: regular rate, rhythm, edema (1+) Abdomen: normal bowel sounds, non-tender, soft Skin: normal color, warm/dry Extremities: normal inspection Neuro/Psych: alert, normal mood/affect, oriented x 3 ICD10 Worksheet Patient Problems: Problems Problem Status Onset Palliative care encounter Acute Renal insufficiency Acute Serum potassium elevated Acute Chronic Disease Managment/Transitional Care Program Acute Pneumonia Acute
[2017-07-26 19:08] LABS: POTASSIUM 3.2 mEq/L (3.5-5.2)
[2017-07-26] MEDS: AMIODARONE HCL 200 MG TAB PO SCH (20:33)
[2017-07-27] MEDS: CEFEPIME HCL 2 GM in D5W 100 ML IV SCH ×3 (05:11→21:11)
[2017-07-27] MEDS: LEVOTHYROXINE 50 MCG TAB PO SCH (05:11)
[2017-07-27] MEDS: NS 1,000 ML IV SCH (05:12)
[2017-07-27 05:33] LABS: % IMMATURE GRANULYOCYTES 0.4 % (0.0-1.1); ABSOLUTE IMMATURE GRANULOCYTES 0.04 10^3/uL (0.00-0.10); ABSOLUTE NRBC COUNT 0.03 10^3/uL (0-0.01); ADD DIFF? NO; ADD MORPH? NO; ADD SCAN? NO; ATYPICAL LYMPHOCYTE FLAG 0 (0-99); FRAGMENT RBC FLAG 0 (0-99); HEMATOCRIT 23.9 % (38.0-47.0); HEMOGLOBIN 7.5 g/dL (12.6-16.3); LEFT SHIFT FLG 0 (0-99); LIPEMIA HEMOLYSIS FLAG 80 (0-99); MEAN CELL HEMOGLOBIN CONCENTR. 31.4 g/dL (32.4-36.7); MEAN CELL VOLUME 95.6 fL (81.5-99.8); MEAN PLATELET VOLUME 9.9 fL (8.7-11.7); NRBC-AUTO% 0.3 % (0.0-0.2); PLATELET CLUMPS FLAG 10 (0-99); PLATELET COUNT 211 10^3/uL (150-400); RED CELL DISTRIBUTION WIDTH 19.3 % (11.5-15.2)
[2017-07-27 05:43] LABS: ALANINE AMINOTRANSFERASE 28 IU/L (9-52); ALBUMIN 2.6 g/dL (3.5-5.0); ALKALINE PHOSPHATASE 68 IU/L (38-126); ANION GAP 9 mEq/L (8-16); ASPARTATE AMINOTRANSFERASE 25 IU/L (14-46); BILIRUBIN,TOTAL 0.5 mg/dL (0.1-1.4); CALCIUM 8.3 mg/dL (8.5-10.4); CARBON DIOXIDE 26 mEq/l (22-31); CHLORIDE 106 mEq/L (97-110); CREATININE 0.9 mg/dL (0.6-1.0); GLOMERULAR FILTRATION RATE 59; GLUCOSE 134 mg/dL (70-100); POTASSIUM 3.9 mEq/L (3.5-5.2); SODIUM 141 mEq/L (134-144); TOTAL PROTEIN 5.1 g/dL (6.3-8.2)
[2017-07-27] MEDS ORDERED: COSYNTROPIN 0.25 MG/2 ML SYRINGE IVP ONE (06:00)
[2017-07-27 06:04] LABS: CORTISOL-AM 21.7 ug/dL (4.5-22.7)
[2017-07-27] MEDS: SENNOSIDES/DOCUSATE SODIUM TAB PO SCH ×2 (08:31→20:00)
[2017-07-27] MEDS: AMIODARONE HCL 200 MG TAB PO SCH ×2 (08:31→20:00)
[2017-07-27] MEDS: MULTIVITAMINS 1 EACH TAB PO SCH (08:32)
[2017-07-27] MEDS: INSULIN LISPRO 100 UNIT/1 ML VIAL STANDARD SC SCH ×3 (08:32→18:58)
[2017-07-27] MEDS ORDERED: POTASSIUM Cl (KCl) 50 ML IV ONE ×2 (09:41→14:36)
[2017-07-27 13:53] LABS: POTASSIUM 3.9 mEq/L (3.5-5.2)
--- NOTE | 2017-07-27 14:47 | PDINTPN ---
Interactive Media Marketing Strategist Progress Note Assessment/Plan: Assessment: 87 F admitted 07/10/17 with hypokalemia and LAMONT after recent cellulitis treated with Bactrim. Cellulitis dx/rx after recent fall. She reported diarrhea (none this admission) from the bactrim which was thought to be causative of hypovolemia and LAMONT as this improved with IVF and briefly dopamine. Hyperkalemia resolved with HCO3, insulin, D50 in ER (though complicated by hypoglycemia and drop in BP). She had a syncopal episode while transferring to a chair associated with a long sinus pause on tele (reported between 5 and 12 seconds). She had a PPM placed 07/16. She has been in atrial fibrillation. Her hospital course has been complicated by upper GI bleeding. * Anemia- S/P endoscopy x2 with no source of bleeding identified. ? Small bowel source, which will require outpatient capsule endoscopy. GI following. Hct stable today at 24. * Cellulitis- Resolved. * AF: In and out of AF. On amiodorone. No anticoagulation currently due to GIB/ anemia, however this needs to be restarted for stroke prevention. * UTI: Pseudomonas in urine greater than 100,000, with a few Klebsiella as well. Both are sensitive to cefepime. Cannot use levofloxacin as she is allergic. * Hypotension: Mild, off NE currently. * Hypoxia- Mild and improving. She does have underlying bronchiectasis. * Bronchiectasis- at her baseline O2 requirement (4lpm) with good saturations * NADIYA- Continue to use her home device * LAMONT- Resolved * DM- BG controlled Plan: Continue care in the intensive care unit for now. Follow blood pressure and clinical status. Increase mobilization and strengthening as tolerated. Continue cefepime and antiarrhythmics. Follow hematocrit and evidence of GI bleeding. 35 minutes of critical care time spent with the patient. Discussed with the patient's sons, nursing, GI, and the ICU multi disciplinary team. Subjective: In chair. No specific complaints. Very weak. Objective: Vital Signs Temp Pulse Resp BP Pulse Ox 36.8 C 114 H 20 98/60 L 97 07/26/17 20:00 07/27/17 10:00 07/27/17 10:00 07/27/17 10:00 07/27/17 10:00 Laboratory Results 07/27/17 05:00 07/27/17 13:30 07/26/17 07/27/17 07/28/17 05:59 05:59 05:59 Intake Total 3579 3568 Output Total 800 400 350 Balance 2779 3168 -350 PT 14.0 SEC (12.0-15.0) 07/26/17 06:10 INR 1.09 (0.83-1.16) 07/26/17 06:10 Laboratory Tests 07/27/17 07/27/17 05:00 06:05 Sodium 141 Potassium 3.9 Chloride 106 Carbon Dioxide 26 Anion Gap 9 BUN 42 H Creatinine 0.9 Glucose 134 H Calcium 8.3 L Total Bilirubin 0.5 AST 25 ALT 28 Albumin 2.6 L Cortisol AM Sample 56.4 H Physical Exam - Physical Exam General Appearance: alert, no apparent distress, other (In chair) EENT: PERRL/EOMI, other (Nasal cannula at 3 L) Neck: normal inspection (No JVD) Respiratory: lungs clear (Anteriorly), decreased breath sounds (At bases), rales (Few at left base), No rhonchi, No wheezing Cardiac/Chest: irregularly irregular (Atrial fibrillation, approximately 110) Abdomen: normal bowel sounds, non-tender, soft Pelvic Exam: other (No Padilla catheter. Input. Greater than output.) Skin: warm/dry, pallor Extremities: pedal edema Neuro/Psych: no motor/sensory deficits (Moves all extremities equally. Globally quite weak), No cognition abnormalities ICD10 Worksheet Patient Problems: Problems Problem Status Onset Palliative care encounter Acute Renal insufficiency Acute Serum potassium elevated Acute Chronic Disease Managment/Transitional Care Program Acute Pneumonia Acute
--- NOTE | 2017-07-27 15:11 | SOAPPROG ---
KAREN Progress Note Assessment/Plan: Assessment: 1. Atrial fibrillation 2. Sick sinus syndrome 3. Permanent pacemaker 4. Fatigue 5. Weakness She is actually getting about doing quite well She does not have any other new complaints today. She is on amiodarone for atrial fibrillation and she has not had full anticoagulation because of her bleeding and requirement for blood transfusions. I have talked to the family at length talked all the family members. Including 1 family member psychiatrist. I have also touch base with the nursing staff on her care and currently we will watch her closely and see how she does on Plan: 07/27/17 15:09 Subjective: She is feeling quite a bit better today. She is having no chest pain or jaw pain She feels a little short of breath occasionally but she is not even sure that. She is not having fever chills She has no cough She has been getting up quite a bit. No new neurologic complaints. [place] states family members are here and I have talked to them all Objective: Vital Signs Temp Pulse Resp BP Pulse Ox 36.8 C 130 H 21 H 106/67 99 07/26/17 20:00 07/27/17 13:00 07/27/17 13:00 07/27/17 13:00 07/27/17 13:00 Laboratory Results 07/27/17 05:00 07/27/17 13:30 07/26/17 07/27/17 07/28/17 05:59 05:59 05:59 Intake Total 3579 3568 Output Total 800 400 350 Balance 2779 3168 -350 PT 14.0 SEC (12.0-15.0) 07/26/17 06:10 INR 1.09 (0.83-1.16) 07/26/17 06:10 Selected Entries 07/27/17 07/27/17 07/27/17 09:00 10:00 11:00 Heart Rate 129 H 114 H 111 H Respiratory 21 H 22 H Rate Blood Pressure 113/67 98/60 L 99/83 H Mean Arterial 78 72 88 Pressure (MAP) 07/27/17 07/27/17 12:00 13:00 Heart Rate 131 H 130 H Respiratory 21 H Rate Blood Pressure 123/63 H 106/67 Mean Arterial 74 Pressure (MAP) Physical Exam - Physical Exam General Appearance: alert, mild distress Respiratory: rhonchi Cardiac/Chest: gallop, systolic murmur, irregularly irregular Abdomen: non-tender, soft Skin: warm/dry, pallor Neuro/Psych: alert ICD10 Worksheet Patient Problems: Problems Problem Status Onset Palliative care encounter Acute Renal insufficiency Acute Serum potassium elevated Acute Chronic Disease Managment/Transitional Care Program Acute Pneumonia Acute
--- NOTE | 2017-07-27 15:49 | SOAPPROG ---
KAREN Progress Note Assessment/Plan: Assessment:Plan: 07/26/17 13:42 as above EGD with minimal heme on area in duodenum that may have been scope trauma vs vasc ectasia Pt w/o melena, HB stable and BUN decreasing c/w no bleeding at present off anticoagulation for now in paroxysmal a fib 1) UGI bleed - I suspect proximal Sb lesion to account for her bleeding. If stable and no rebleed, then outpt capsule study of SB If bleeds then tagged rbc scan 2) anemia - better post 2 units PRBC, stable HB today 3) anticoagulation - on hold for now 4) A fib - in NSR at present 07/27/17 15:46 as above pt with drifting HB but BUN also going down so I don't think from blood loss 1) UGI bleed - suspect prox SB source. IF stable then outpt capsule. IF rebleeds inpt, tagged rbc scan +/- EGD with colonoscope 2) Anemia - drifting down, will recheck Hb and BUN this afternoon 3) anti-coagulation - on hold for now 4) a fib - amiodarone, as per cardiology will follow Subjective: cc- post hemorrhagic anemia, UGI bleed pt feeling OK, sitting in chair says no BM today Objective: Vital Signs Temp Pulse Resp BP Pulse Ox 36.8 C 130 H 21 H 106/67 99 07/26/17 20:00 07/27/17 13:00 07/27/17 13:00 07/27/17 13:00 07/27/17 13:00 Laboratory Results 07/27/17 05:00 07/27/17 13:30 07/26/17 07/27/17 07/28/17 05:59 05:59 05:59 Intake Total 3579 3568 Output Total 800 400 350 Balance 2779 3168 -350 PT 14.0 SEC (12.0-15.0) 07/26/17 06:10 INR 1.09 (0.83-1.16) 07/26/17 06:10 A+Ox3 CTA S!S2, irreg irreg, tachy +BS, soft non tender Laboratory Tests 07/25/17 07/25/17 07/26/17 05:20 17:15 06:10 Hgb 8.6 L 8.2 L BUN 83 H 0907/26/17 07/27/17 06:10 12:45 05:00 Hgb BUN 55 H 47 H 42 H 07/27/17 05:00 Hgb 7.5 L BUN ICD10 Worksheet Patient Problems: Problems Problem Status Onset Palliative care encounter Acute Renal insufficiency Acute Serum potassium elevated Acute Chronic Disease Managment/Transitional Care Program Acute Pneumonia Acute
[2017-07-27 16:09] LABS: HEMATOCRIT 23.6 % (38.0-47.0); HEMOGLOBIN 7.4 g/dL (12.6-16.3)
--- NOTE | 2017-07-27 17:08 | HOSPPROG ---
Hospitalist Progress Note Assessment/Plan: 87 F admitted 07/10/17 with hypokalemia and LAMONT after recent cellulitis treated with Bactrim, hospital course complicated by long sinus pause requiring PPM and GI bleed. # UGIB: s/p endoscopy x 2, presumed SB source of bleed but no active bleeding found. Plan for capsule endoscopy as an OP unless rebleeds and then tagged RBC scan. GI following # acute blood loss anemia: in setting of above, stable s/p tx 2 units PRBCs # shock: septic versus hypovolemic, treating with levophed in ICU, HD improving and attempting to wean # pseudomonal/klebsiella UTI: being treated with cefepime, in association of above, blood cultures negative. Will ask ID to consult to help with abx therapy going forward. # a fib/flutter w/rvr: no AC given GI bleed, continued on amio/dilt with improved rate control, cardiology following # complete heart block: with long pause and now s/p PPM, cardiology following # protein calorie malnutrition: dietary following # DM2: continue SSI/ holding metformin # lamont/hyperkalemia: resolved, was present on admission due to hypovolemia and op bactrim use # cellulitis: resolved, s/p 7 days of abx # DNR # IP status, remains in ICU requiring pressor support Patient new to my care. Old records reviewed and summarized as above. Care plan reviewed with Dr. Williamson and multidisciplinary care team on rounds. Subjective: no significant overnight events, patient feeling well today Objective: Vital Signs Temp Pulse Resp BP Pulse Ox 36.8 C 129 H 23 H 103/58 L 98 07/26/17 20:00 07/27/17 16:00 07/27/17 16:00 07/27/17 16:00 07/27/17 16:00 Laboratory Results 07/27/17 15:50 07/26/17 07/27/17 07/28/17 05:59 05:59 05:59 Intake Total 3579 3568 Output Total 800 400 350 Balance 2779 3168 -350 PT 14.0 SEC (12.0-15.0) 07/26/17 06:10 INR 1.09 (0.83-1.16) 07/26/17 06:10 elderly female, awake alert nad anicteric op clear irreg irreg cta with normal wob soft nt nd no cce warm dry well perfused scattered ecchymosis oriented appropriate ICD10 Worksheet Patient Problems: Problems Problem Status Onset Pneumonia Acute Chronic Disease Managment/Transitional Care Program Acute Renal insufficiency Acute Serum potassium elevated Acute Palliative care encounter Acute
[2017-07-27 18:04] LABS: POTASSIUM 3.9 mEq/L (3.5-5.2)
[2017-07-28] MEDS ORDERED: PROTOCOL POTASSIUM 1 DOSE MISC PRN (00:19)
[2017-07-28 05:24] LABS: % IMMATURE GRANULYOCYTES 0.6 % (0.0-1.1); ABSOLUTE IMMATURE GRANULOCYTES 0.05 10^3/uL (0.00-0.10); ABSOLUTE NRBC COUNT 0.02 10^3/uL (0-0.01); ADD DIFF? NO; ADD MORPH? YES; ADD SCAN? NO; ATYPICAL LYMPHOCYTE FLAG 20 (0-99); FRAGMENT RBC FLAG 0 (0-99); HEMATOCRIT 25.3 % (38.0-47.0); HEMOGLOBIN 7.8 g/dL (12.6-16.3); LEFT SHIFT FLG 0 (0-99); LIPEMIA HEMOLYSIS FLAG 80 (0-99); MEAN CELL HEMOGLOBIN 30.4 pg (27.9-34.1); MEAN CELL HEMOGLOBIN CONCENTR. 30.8 g/dL (32.4-36.7); MEAN CELL VOLUME 98.4 fL (81.5-99.8); NRBC-AUTO% 0.2 % (0.0-0.2); PLATELET CLUMPS FLAG 0 (0-99); PLATELET COUNT 249 10^3/uL (150-400); RED BLOOD CELL COUNT 2.57 10^6/uL (4.18-5.33)
[2017-07-28 05:26] LABS: RED CELL DISTRIBUTION WIDTH 20.2 % (11.5-15.2)
[2017-07-28] MEDS: CEFEPIME HCL 2 GM in D5W 100 ML IV SCH ×2 (05:35→13:44)
[2017-07-28 05:42] LABS: ALANINE AMINOTRANSFERASE 30 IU/L (9-52); ALBUMIN 2.6 g/dL (3.5-5.0); ALKALINE PHOSPHATASE 75 IU/L (38-126); ANION GAP 8 mEq/L (8-16); ASPARTATE AMINOTRANSFERASE 20 IU/L (14-46); BILIRUBIN,TOTAL 0.6 mg/dL (0.1-1.4); CALCIUM 8.4 mg/dL (8.5-10.4); CARBON DIOXIDE 25 mEq/l (22-31); CHLORIDE 108 mEq/L (97-110); CREATININE 0.9 mg/dL (0.6-1.0); GLOMERULAR FILTRATION RATE 59; GLUCOSE 125 mg/dL (70-100); POTASSIUM 3.6 mEq/L (3.5-5.2); SODIUM 141 mEq/L (134-144); TOTAL PROTEIN 5.5 g/dL (6.3-8.2)
[2017-07-28] MEDS ORDERED: POTASSIUM CL 20 MEQ TAB PO ONE ×2 (05:49→08:45)
[2017-07-28 05:56] LABS: HYPOCHROMIA 1+; MICROCYTES 1+; PLATELET ESTIMATE ADEQUATE (ADEQ); POLYCHROMASIA 1+
[2017-07-28] MEDS: INSULIN LISPRO 100 UNIT/1 ML VIAL STANDARD SC SCH ×3 (08:31→17:27)
[2017-07-28] MEDS: SENNOSIDES/DOCUSATE SODIUM TAB PO SCH ×2 (08:35→20:01)
[2017-07-28] MEDS: AMIODARONE HCL 200 MG TAB PO SCH ×2 (08:36→20:01)
[2017-07-28] MEDS: MULTIVITAMINS 1 EACH TAB PO SCH (08:36)
[2017-07-28] MEDS: LEVOTHYROXINE 50 MCG TAB PO SCH (08:39)
--- NOTE | 2017-07-28 11:32 | PDINTPN ---
[employer] Supervisor Progress Note Assessment/Plan: Assessment: 87 F admitted 07/10/17 with hypokalemia and LAMONT after recent cellulitis treated with Bactrim. Cellulitis dx/rx after recent fall. She reported diarrhea (none this admission) from the bactrim which was thought to be causative of hypovolemia and LAMONT as this improved with IVF and briefly dopamine. Hyperkalemia resolved with HCO3, insulin, D50 in ER (though complicated by hypoglycemia and drop in BP). She had a syncopal episode while transferring to a chair associated with a long sinus pause on tele (reported between 5 and 12 seconds). She had a PPM placed 07/16. She has been in atrial fibrillation. Her hospital course has been complicated by upper GI bleeding. * Anemia- S/P endoscopy x2 with no source of bleeding identified. ? Small bowel source, which will require outpatient capsule endoscopy. GI following. Hct stable today at 25. * Cellulitis- Resolved. * AF: In and out of AF. On amiodorone. No anticoagulation currently due to GIB/ anemia, however this needs to be restarted for stroke prevention. * UTI: Pseudomonas in urine greater than 100,000, with a few Klebsiella as well. Both are sensitive to cefepime. Cannot use levofloxacin as she is allergic. * Hypotension: Mild, off NE currently. * Hypoxia- Mild and improving. She does have underlying bronchiectasis. * Bronchiectasis- at her baseline O2 requirement (4lpm) with good saturations * NADIYA- Continue to use her home device * LAMONT- Resolved * DM- BG controlled * Weakness, failure to thrive. Slowly better. Plan: Continue care. Can change status to step-down unit. Follow blood pressure and clinical status. Increase mobilization and strengthening as tolerated. Continue cefepime and antiarrhythmics. Continue current medications. Mobilize as tolerated. Follow hematocrit and evidence of GI bleeding. 35 minutes of critical care time spent with the patient. Discussed with the patient's dtrs, nursing, and the ICU multi disciplinary team. Subjective: Quite weak. Uncomfortable. Denies shortness of breath. Some nausea earlier today. No chest pain. Objective: Vital Signs Temp Pulse Resp BP Pulse Ox 37 C 110 H 19 90/60 L 99 07/28/17 08:00 07/28/17 10:00 07/28/17 10:07/28/17 10:00 07/28/17 10:00 Laboratory Results 07/28/17 05:00 07/28/17 05:00 07/27/17 07/28/17 07/29/17 05:59 05:59 05:59 Intake Total 3568 3230 Output Total 400 1320 Balance 3168 1910 PT 14.0 SEC (12.0-15.0) 07/26/17 06:10 INR 1.09 (0.83-1.16) 07/26/17 06:10 Laboratory Tests 07/28/17 05:00 Calcium 8.4 L Total Bilirubin 0.6 AST 20 ALT 30 Albumin 2.6 L Physical Exam - Physical Exam General Appearance: alert, no apparent distress EENT: PERRL/EOMI, other ( nasal cannula at 2-3 L) Neck: normal inspection ( n JVD) Respiratory: lungs clear, decreased breath sounds ( at bases), rales ( few), No rhonchi, No wheezing Cardiac/Chest: tachycardia, irregularly irregular Abdomen: normal bowel sounds, non-tender, soft Skin: warm/dry, pallor Extremities: pedal edema ( trace +), other ( lower extremities in protective boots) Neuro/Psych: no motor/sensory deficits ( moves all extremities equally, globally weak) ICD10 Worksheet Patient Problems: Problems Problem Status Onset Pneumonia Acute Chronic Disease Managment/Transitional Care Program Acute Renal insufficiency Acute Serum potassium elevated Acute Palliative care encounter Acute
--- NOTE | 2017-07-28 14:39 | SOAPPROG ---
KAREN Progress Note Assessment/Plan: Assessment:Plan: 07/26/17 13:42 EGD with minimal heme on area in duodenum that may have been scope trauma vs vasc ectasia Pt w/o melena, HB stable and BUN decreasing c/w no bleeding at present off anticoagulation for now in paroxysmal a fib 07/28/17 14:16 1) UGI bleed - HB up BUN down c/w no bleeding off anticoagulation. If no rebleed, then capsule study I am trying to see if anyway it can be done as an inpt 2) anticoag - on hold for now 3) A fib - asd per cardiology will follow Subjective: CC- UGI bleed in bed smiling, no gi complaints Objective: Vital Signs Temp Pulse Resp BP Pulse Ox 36.5 C 91 18 109/52 L 100 07/28/17 12:00 07/28/17 14:00 07/28/17 14:00 07/28/17 14:00 07/28/17 14:00 Laboratory Results 07/28/17 05:00 07/28/17 05:00 07/27/17 07/28/17 07/29/17 05:59 05:59 05:59 Intake Total 3568 3230 Output Total 400 1320 Balance 3168 1910 PT 14.0 SEC (12.0-15.0) 07/26/17 06:10 INR 1.09 (0.83-1.16) 07/26/17 06:10 A+O CTA S1S2 +bs, soft nt Laboratory Tests 07/27/17 07/27/17 07/27/17 05:00 05:00 15:50 Hgb 7.5 L 7.4 L BUN 42 H 07/27/17 07/28/17 07/28/17 15:50 05:00 05:00 Hgb 7.8 L BUN 40 H 36 H ICD10 Worksheet Patient Problems: Problems Problem Status Onset Palliative care encounter Acute Renal insufficiency Acute Serum potassium elevated Acute Chronic Disease Managment/Transitional Care Program Acute Pneumonia Acute
--- NOTE | 2017-07-28 16:23 | HOSPPROG ---
Hospitalist Progress Note Assessment/Plan: 87 F admitted 07/10/17 with hypokalemia and LAMONT after recent cellulitis treated with Bactrim, hospital course complicated by long sinus pause requiring PPM and GI bleed. # UGIB: s/p endoscopy x 2, presumed SB source of bleed but no active bleeding found. Plan for capsule endoscopy as an OP unless rebleeds and then tagged RBC scan. GI following, no e/o rebleeding. # acute blood loss anemia: in setting of above, stable s/p tx 4 units PRBCs total during this hospital stay # shock: septic versus hypovolemic, now off of pressors and doing well # pseudomonal/klebsiella UTI: being treated with cefepime, in association of above, blood cultures negative. Discussed with ID who are following. # a fib/flutter w/rvr: no AC given GI bleed, continued on amio/dilt with improved rate control, cardiology following # complete heart block: with long pause and now s/p PPM, cardiology following # protein calorie malnutrition: dietary following # DM2: continue SSI/ holding metformin # lamont/hyperkalemia: resolved, was present on admission due to hypovolemia and op bactrim use # cellulitis: resolved, s/p 7 days of abx # DNR # IP status, remains in ICU requiring pressor support Care plan reviewed with Dr. Williamson and multidisciplinary care team on rounds. Subjective: no significant overnight events, patient is feeling fairly exhausted today and is looking forward to a nap but otherwise feels well Objective: Vital Signs Temp Pulse Resp BP Pulse Ox 36.5 C 91 18 109/52 L 100 07/28/17 12:00 07/28/17 14:00 07/28/17 14:00 07/28/17 14:00 07/28/17 14:00 Laboratory Results 07/28/17 05:00 07/28/17 05:00 07/27/17 07/28/17 07/29/17 05:59 05:59 05:59 Intake Total 3568 3230 Output Total 400 1320 Balance 3168 1910 PT 14.0 SEC (12.0-15.0) 07/26/17 06:10 INR 1.09 (0.83-1.16) 07/26/17 06:10 elderly female, awake alert nad anicteric op clear irreg irreg cta with normal wob soft nt nd no cce warm dry well perfused scattered ecchymosis oriented appropriate ICD10 Worksheet Patient Problems: Problems Problem Status Onset Palliative care encounter Acute Renal insufficiency Acute Serum potassium elevated Acute Chronic Disease Managment/Transitional Care Program Acute Pneumonia Acute
[2017-07-28 18:36] LABS: POTASSIUM 3.4 mEq/L (3.5-5.2)
[2017-07-28] MEDS ORDERED: POTASSIUM CL 10 MEQ TAB PO ONE (18:40)
[2017-07-28] MEDS: CEFEPIME HCL 1 GM in D5W 50 ML IV SCH (22:15)
[2017-07-29] MEDS: CEFEPIME HCL 1 GM in D5W 50 ML IV SCH ×3 (06:06→22:10)
[2017-07-29] MEDS: LEVOTHYROXINE 50 MCG TAB PO SCH ×2 (06:06→07:11)
[2017-07-29] MEDS: NS 1,000 ML IV SCH ×2 (06:08→12:47)
[2017-07-29 06:37] LABS: POTASSIUM 4.1 mEq/L (3.5-5.2)
[2017-07-29] MEDS: INSULIN LISPRO 100 UNIT/1 ML VIAL STANDARD SC SCH ×3 (07:57→17:48)
--- NOTE | 2017-07-29 08:57 | GCON ---
[f rep st] CONSULTATION INFECTIOUS DISEASE CONSULTATION DATE OF CONSULTATION: 07/28/2017 REFERRING PHYSICIAN: Jacklyn Jorgensen MD REASON FOR CONSULTATION: Urinary tract infection, for further evaluation and management. HISTORY OF PRESENT ILLNESS: This is an 87-year-old female with a past medical history significant for atrial fibrillation, diabetes mellitus type 2, bronchiectasis on chronic oxygen, and venous insufficiency who apparently was admitted due to acute renal insufficiency and hyperkalemia. She apparently had just recently completed a course of Keflex and Bactrim for possible cellulitis of 7 days, which had started on the 03 of July. She apparently had significant diarrhea from that, and her potassium was 6.3 on admission. During the course of her hospitalization, she ended up having a syncopal episode the 14 of July while transferring to a chair and then was transferred back to the intensive care unit and was on dopamine. She was found to have sick sinus syndrome and underwent placement of a single-chamber pacemaker on July 16. She was doing well post procedure until around the 24 of July when she was noted to be hypotensive, tachycardic, and with an increased respiratory rate. Her white blood cell count also was climbing. She was also noted to be anemic and in A-flutter. She was started back on pressors and a UA was captured at that time. UA showed 1+ blood, positive nitrites, 2+ leukocyte esterase, 25-50 WBCs, 1+ bacteria, trace epithelial cells , and the culture grew out greater than 100,000 pseudomonas and 10,000-20,000 of klebsiella. She was initially started on ceftriaxone until the cultures with possible pseudomonas and then was changed to cefepime on the 04 of August. She was maintained on pressors until yesterday. Her white blood cell count has steadily come down since then back into the normal range. She had another EGD done which showed blood, erythema and friability in the stomach but no defined area of bleeding apparently. Blood cultures were not taken at the time of this possible septic event. The patient feels well now. She did not have a Padilla catheter in place. She cannot remember if she had burning with urination a few days ago. She does not have any abdominal pain now, but cannot recall if she had severe pain a couple of days ago. Infectious Disease is now consulted for further evaluation and opinion regarding above. REVIEW OF SYSTEMS: GENERAL: No fevers or shaking chills. HEENT: Head: No current headaches. Eyes: No change in vision. ENT: No sore throat, difficulty swallowing, ear pain, ear drainage. CARDIOVASCULAR: Denies any chest pain or rapid heartbeat. RESPIRATORY: Denies any increased shortness of breath, cough, or sputum production. ABDOMEN: No nausea, vomiting, abdominal pain, or diarrhea. BACK: Denies back pain. MUSCULOSKELETAL: Denies any joint pains or muscle aches. SKIN: Denies any rashes. Rest of 10-point Review of Systems essentially negative except as above. PAST MEDICAL HISTORY: Significant for atrial fibrillation, diabetes mellitus type 2, hypothyroidism, bronchiectasis on chronic O2, venous insufficiency. ALLERGIES: Levaquin which gives her a rash. SOCIAL HISTORY: She is a nonsmoker and nondrinker. Lives with her grandsons. No pets. Has not left [place] recently. FAMILY HISTORY: Significant for coronary artery disease and rheumatoid arthritis. MEDICATIONS: As per JAN. PHYSICAL EXAMINATION: VITAL SIGNS: Temperature current 36.5, pulse is 93, blood pressure 97/56, respiratory rate 22, saturation 98% on 3 L O2 via nasal cannula. 3 L O2 via nasal cannula, as per the patient, is her baseline O2. GENERAL: The patient is sitting in bed in no acute respiratory distress. Awake, alert and oriented x3. HEENT: Head is normocephalic, atraumatic. Eyes without conjunctival injection or petechiae noted. Oropharynx is clear. No posterior pharyngeal erythema or thrush. CARDIOVASCULAR: S1, S2. Regular rate and rhythm. CHEST: Permanent pacemaker in the left upper chest with Steri-Strips in place without obvious erythema or tenderness on palpation. ABDOMEN: Positive bowel sounds in all quadrants. Soft, nontender, nondistended. No organomegaly appreciated. EXTREMITIES: No lower extremity edema. SKIN: No obvious rashes. LABORATORY DATA: White blood cell count is 8.9, hemoglobin 7.8, platelets are 249, neutrophil count is 65%. Chemistry: Sodium 141, potassium 3.6, chloride 78 , bicarb 25, BUN 36, creatinine 3.9. LFTs are within the normal range. Urinalysis, as stated above. Blood cultures, 2 sets, on the 11 of July: No growth to date. Urine culture on the 24 of July with greater than 100, 000 pseudomonas species and 10,000-20,000 colony-forming units of Klebsiella pneumoniae. ASSESSMENT: 1. Acute sepsis-like presentation requiring pressors. 2. Urine culture with pseudomonas. 3. Acute gastrointestinal bleed. 4. Atrial flutter. PLAN: It is unclear what was the etiology or cause for her acute change in hemodynamic status around the 24 of July where she had a drop in blood pressure, elevated heart rate, and increase in respiratory rate requiring pressors. No blood cultures were checked at that time, she did have a urinalysis with culture which did show pyuria and did have significant growth of pseudomonas. She was started on cefepime, and over the last couple days her white blood cell count has trended down and she is finally off pressors. It is unclear if the urinary culture is representing a true infection causing sepsis or whether her sepsis-like presentation was related to her acute gastrointestinal bleed or atrial flutter. Discussed at length with the hospitalist team regarding the details around that. Given the patient required intensive care unit stay with a sepsis-like presentation with positive urine culture and recently placed pacer with no recent blood cultures at the time, would favor continuing therapy for the recommended course for pseudomonas in the intensive care unit with sepsis-like presentation, which would be 10 days. She has currently completed 4 days. We will drop down her dose to 1 g q.8 given this is a urinary infection. Care discussed with the hospitalist team and the bi consultant team. Thank you very much for allowing me this opportunity to care for your patient in consultation. /[id number]/MODL MTDD
[2017-07-29] MEDS: AMIODARONE HCL 200 MG TAB PO SCH ×2 (09:32→20:40)
[2017-07-29] MEDS: SENNOSIDES/DOCUSATE SODIUM TAB PO SCH ×2 (09:32→20:40)
[2017-07-29] MEDS: MULTIVITAMINS 1 EACH TAB PO SCH (09:32)
--- NOTE | 2017-07-29 10:52 | PCMIDPN ---
Assessment/Plan: Assessment: Probable sepsis of unclear etiology. We have no blood cultures from earlier when the patient became hypotensive so it is difficult to tell what the etiology of this episode might have been. Patient does have some abnormal urinalysis from that time although the pyuria was not extensive. The presence of bacteria in the urine of an 87-year-old female is a quite normal circumstance. Agree with empirically covering for the Pseudomonas and Klebsiella as possible etiologic agents from urinary source with cefepime given the circumstances are quite consistent with bacterial sepsis. Small areas on the distal aspect of the left lower extremity which are fluctuant. Could these be localized abscess/infection in the subcutaneous tissue. Will ask General surgery to come by and evaluate or drain. Plan: 1. Continue IV cefepime. 2. Follow clinical course. 07/29/17 17:16 07/29/17 17:17 Subjective: Patient is resting in her chair in her hospital room. Family and friends are in the room as well. She is doing much better than a couple of days ago. She denies fevers or chills. She states she feels very tired. Objective: Cefepime # 1 Vital Signs Temp Pulse Resp BP Pulse Ox 35.8 C L 102 H 20 120/59 L 98 07/29/17 08:00 07/29/17 08:00 07/29/17 08:00 07/29/17 08:00 07/29/17 08:00 Laboratory Results 07/28/17 05:00 07/29/17 06:05 07/28/17 07/29/17 07/30/17 05:59 05:59 05:59 Intake Total 3230 2248 Output Total 1320 1150 Balance 1910 1098 - Physical Exam General Appearance: WD/WN, alert, no apparent distress, non-toxic, other (Tired an ill-appearing) Respiratory: lungs clear, normal breath sounds, No respiratory distress Cardiac/Chest: regular rate, rhythm, tachycardia, No irregularly irregular Extremities: non-tender, inflammation (Mild left lower extremity anterior), No normal inspection Skin: normal color, warm/dry, No rash Neuro/Psych: alert, normal mood/affect, oriented x 3 ICD10 Worksheet Patient Problems: Problems Problem Status Onset Palliative care encounter Acute Renal insufficiency Acute Serum potassium elevated Acute Chronic Disease Managment/Transitional Care Program Acute Pneumonia Acute
[2017-07-29] MEDS ORDERED: LIDOCAINE 1% 5 ML SDV ONE (11:43)
--- NOTE | 2017-07-29 11:44 | SOAPPROG ---
KAREN Progress Note Assessment/Plan: Assessment:Plan: 07/26/17 13:42 EGD with minimal heme on area in duodenum that may have been scope trauma vs vasc ectasia Pt w/o melena, HB stable and BUN decreasing c/w no bleeding at present off anticoagulation for now in paroxysmal a fib 07/28/17 14:16 1) UGI bleed - HB up BUN down c/w no bleeding off anticoagulation. If no rebleed, then capsule study I am trying to see if anyway it can be done as an inpt 2) anticoag - on hold for now 3) A fib - asd per cardiology will follow 07/29/17 11:41 1) UGI bleed - will schedule capsule for tomorrow morning as inpt. Clear liquid dinner, NPO post MN. I will come in tomorrow am with my asst and get capsule performed. I will then return in afternoon to get the equipment and download the images. 2) anticoagulation - on hold 3) A fib - as per electric sign wirer and hospitalists Subjective: CC- UGI bleed, anemia from bleed pt feeling OK, she is always smiling no abdo pain, no n/v Objective: Vital Signs Temp Pulse Resp BP Pulse Ox 35.8 C L 102 H 20 120/59 L 98 07/29/17 08:00 07/29/17 08:00 07/29/17 08:00 07/29/17 08:00 07/29/17 08:00 Laboratory Results 07/28/17 05:00 07/29/17 06:05 07/28/17 07/29/17 07/30/17 05:59 05:59 05:59 Intake Total 3230 2248 Output Total 1320 1150 Balance 1910 1098 PT 14.0 SEC (12.0-15.0) 07/26/17 06:10 INR 1.09 (0.83-1.16) 07/26/17 06:10 A+oO CTA S1S2 +BS, s Laboratory Tests 07/25/17 07/26/17 07/26/17 05:20 06:10 12:45 Hgb BUN 83 H 55 H 47 H 07/27/17 07/27/17 07/27/17 05:00 05:00 15:50 Hgb 7.5 L 7.4 L BUN 42 H 07/27/17 07/28/17 07/28/17 15:50 05:00 05:00 Hgb 7.8 L BUN 40 H 36 H oft nt ICD10 Worksheet Patient Problems: Problems Problem Status Onset Palliative care encounter Acute Renal insufficiency Acute Serum potassium elevated Acute Chronic Disease Managment/Transitional Care Program Acute Pneumonia Acute
[2017-07-29] MEDS ORDERED: LIDOCAINE 1% 5 ML SDV NB ONE (11:45)
--- NOTE | 2017-07-29 12:00 | ASMTCMCOM ---
CM Note CM Note Notes: Met with patient and two of her daughters. Patient is making functional gains and should be ready for transfer to the floor soon. Patient and family still desire discharge to [facility] - I sent updated notes, and [facility] is following. CM to follow. Date Signed: 07/29/2017 11:59 AM Electronically Signed By:Kristina Shepard RN
[2017-07-29] MEDS: METOPROLOL TARTRATE 25 MG TAB PO SCH ×2 (12:45→20:40)
--- NOTE | 2017-07-29 12:54 | PDINTPN ---
Video Game Animator Progress Note Assessment/Plan: Assessment: 87 F admitted 07/10/17 with hypokalemia and LAMONT after recent cellulitis treated with Bactrim. Cellulitis dx/rx after recent fall. She reported diarrhea (none this admission) from the bactrim which was thought to be causative of hypovolemia and LAMONT as this improved with IVF and briefly dopamine. Hyperkalemia resolved with HCO3, insulin, D50 in ER (though complicated by hypoglycemia and drop in BP). She had a syncopal episode while transferring to a chair associated with a long sinus pause on tele (reported between 5 and 12 seconds). She had a PPM placed 07/16. She has been in atrial fibrillation. Her hospital course has been complicated by upper GI bleeding. * Anemia- S/P endoscopy x2 with no source of bleeding identified. No further ongoing bleeding is evident. Possible small bowel source: will require outpatient capsule endoscopy as an outpatient. GI following. Hct stable today at 25. * Cellulitis- Resolved. * AF: In and out of AF, mostly in. On amiodorone. Will restart metoprolol today. No anticoagulation currently due to GIB/anemia, however this needs to be restarted for stroke prevention. * UTI: Pseudomonas in urine greater than 100,000, with a few Klebsiella as well. Both are sensitive to cefepime. Cannot use levofloxacin as she is allergic. * Hypotension: Mild, off NE. Multifactorial. * Hypoxia- improved. She does have underlying bronchiectasis. * Bronchiectasis- at her baseline O2 requirement (4lpm) with good saturations * NADIYA- Continue to use her home device. * LAMONT- Resolved * DM- BG controlled * Weakness, failure to thrive. Slowly better. Plan: Continue care. Can transfer to PCU she remains stable. Add metoprolol 25 twice daily. She was on this as an outpatient. Continue amiodarone. Follow blood pressure and clinical status. Increase mobilization and strengthening as tolerated. Continue cefepime. Continue current medications. Mobilize as tolerated. Follow hematocrit and evidence of GI bleeding. 30 minutes of critical care time spent with the patient. Discussed with the patient's dtrs, nursing, and the ICU multi disciplinary team. Subjective: Complains of pain in the area where she previously had shingles. Generally uncomfortable. Discouraged. Denies significant shortness of breath. No cough or mucus. Remains weak. Objective: Vital Signs Temp Pulse Resp BP Pulse Ox 35.9 C L 112 H 19 101/70 100 07/29/17 12:00 07/29/17 12:00 07/29/17 12:00 07/29/17 12:00 07/29/17 12:00 Laboratory Results 07/28/17 05:00 07/29/17 06:05 07/28/17 07/29/17 07/30/17 05:59 05:59 05:59 Intake Total 3230 2248 Output Total 1320 1150 Balance 1910 1098 PT 14.0 SEC (12.0-15.0) 07/26/17 06:10 INR 1.09 (0.83-1.16) 07/26/17 06:10 Physical Exam - Physical Exam General Appearance: alert, no apparent distress, other (Up in chair) EENT: PERRL/EOMI, other (Nasal cannula at 2 L. Was on BiPAP over night.) Neck: normal inspection Respiratory: lungs clear (Anteriorly), rales (Few rales at the bases, chronic), No rhonchi, No wheezing Cardiac/Chest: irregularly irregular (Atrial fibrillation at about 120.) Abdomen: normal bowel sounds, non-tender, soft Pelvic Exam: other (No Padilla catheter. Good urine output) Skin: warm/dry, pallor Extremities: pedal edema Neuro/Psych: no motor/sensory deficits, No cognition abnormalities ICD10 Worksheet Patient Problems: Problems Problem Status Onset Pneumonia Acute Chronic Disease Managment/Transitional Care Program Acute Renal insufficiency Acute Serum potassium elevated Acute Palliative care encounter Acute
--- NOTE | 2017-07-29 15:00 | HOSPPROG ---
Hospitalist Progress Note Assessment/Plan: 87 F admitted 07/10/17 with hypokalemia and LAMONT after recent cellulitis treated with Bactrim, hospital course complicated by long sinus pause requiring PPM and GI bleed. # UGIB: s/p endoscopy x 2, presumed SB source of bleed but no active bleeding found. Plan for capsule endoscopy as an OP unless rebleeds and then tagged RBC scan. GI following, no e/o rebleeding. # acute blood loss anemia: in setting of above, stable s/p tx 4 units PRBCs total during this hospital stay # shock: septic versus hypovolemic, now off of pressors and doing well, at this point it is difficult to determine what led to her acute decline--at the time of decompensation no cultures were drawn. Treating as presumed septic shock. # pseudomonal UTI: being treated with cefepime, in association of above, small number of klebsiella on culture. Will treat for total of 10 days. # a fib/flutter w/rvr: no AC given GI bleed, continued on amio/dilt but rate control suboptimal and restarted on metoprolol, cardiology following # complete heart block: with long pause and now s/p PPM, cardiology following # protein calorie malnutrition: dietary following # DM2: continue SSI/ holding metformin # lamont/hyperkalemia: resolved, was present on admission due to hypovolemia and op bactrim use # cellulitis: resolved, s/p 7 days of abx # DNR # IP status Care plan reviewed with Dr. Williamson and multidisciplinary care team on rounds. Subjective: no significant overnight events, patient is feeling a bit better, still very fatigued but out of bed to chair this am Objective: Vital Signs Temp Pulse Resp BP Pulse Ox 35.9 C L 128 H 19 109/71 95 07/29/17 12:00 07/29/17 12:45 07/29/17 12:00 07/29/17 12:45 07/29/17 12:06 Microbiology 07/24/17 14:07 Urine Culture - Final Urine,Clean Catch Pseudomonas Species Klebsiella Pneumoniae 07/29/17 11:51 Gram Stain - Final Ankle - Swab Laboratory Results 07/28/17 05:00 07/29/17 06:05 07/28/17 07/29/17 07/30/17 05:59 05:59 05:59 Intake Total 3230 2248 Output Total 1320 1150 Balance 1910 1098 PT 14.0 SEC (12.0-15.0) 07/26/17 06:10 INR 1.09 (0.83-1.16) 07/26/17 06:10 elderly female, awake alert nad anicteric op clear irreg irreg cta with normal wob soft nt nd no cce warm dry well perfused scattered ecchymosis oriented appropriate ICD10 Worksheet Patient Problems: Problems Problem Status Onset Palliative care encounter Acute Renal insufficiency Acute Serum potassium elevated Acute Chronic Disease Managment/Transitional Care Program Acute Pneumonia Acute
[2017-07-29 18:36] LABS: POTASSIUM 4.3 mEq/L (3.5-5.2)
--- NOTE | 2017-07-30 03:28 | GPN ---
[f rep st] PROCEDURE NOTE PRE-PROCEDURE DIAGNOSIS: Left lower extremity abscess. POSTPROCEDURE DIAGNOSIS: Left lower extremity seroma. ANESTHESIA: None. COMPLICATIONS: None. SPECIMENS: Wound swab for culture. INDICATION: Makenzie Clark is an 87-year-old woman admitted with upper GI bleed. She has had a complic ated hospital course. She was found to have an area of erythema and fluctuance of her left lower ext remity. She has been treated for cellulitis of this area in the past and has completed a course of a ntibiotics. The area is tender to palpation. DESCRIPTION OF PROCEDURE: The patient was consented for the procedure. A timeout was performed. Th e area was prepped with alcohol. We infiltrated the area with 3 cc of 1% lidocaine. I then made a c ruciate incision over top of the area of fluctuance. Serous fluid and old blood was expressed. Cult ure was obtained. The wound cavity was irrigated with normal saline with clear return of fluid. The wound was then packed with quarter-inch plain gauze. Hemostasis was achieved with direct pressure. A pressure bandage and a was then applied secondarily. Outer dressing may be changed as needed. Ga uze packing will be changed daily. We will continue to follow through this hospital admission. /[id number]/MODL
[2017-07-30] MEDS: CEFEPIME HCL 1 GM in D5W 50 ML IV SCH ×3 (06:09→22:04)
[2017-07-30] MEDS: NS 1,000 ML IV SCH ×2 (06:09→22:04)
[2017-07-30 06:44] LABS: % IMMATURE GRANULYOCYTES 0.6 % (0.0-1.1); ABSOLUTE IMMATURE GRANULOCYTES 0.05 10^3/uL (0.00-0.10); ABSOLUTE NRBC COUNT 0.03 10^3/uL (0-0.01); ADD DIFF? NO; ADD MORPH? YES; ADD SCAN? NO; ATYPICAL LYMPHOCYTE FLAG 40 (0-99); FRAGMENT RBC FLAG 0 (0-99); HEMATOCRIT 26.1 % (38.0-47.0); HEMOGLOBIN 7.9 g/dL (12.6-16.3); LEFT SHIFT FLG 0 (0-99); LIPEMIA HEMOLYSIS FLAG 80 (0-99); MEAN CELL HEMOGLOBIN 30.7 pg (27.9-34.1); MEAN CELL HEMOGLOBIN CONCENTR. 30.3 g/dL (32.4-36.7); MEAN CELL VOLUME 101.6 fL (81.5-99.8); NRBC-AUTO% 0.3 % (0.0-0.2); PLATELET CLUMPS FLAG 0 (0-99); PLATELET COUNT 284 10^3/uL (150-400); RED BLOOD CELL COUNT 2.57 10^6/uL (4.18-5.33)
[2017-07-30 06:53] LABS: RED CELL DISTRIBUTION WIDTH 20.9 % (11.5-15.2)
[2017-07-30 07:02] LABS: ANION GAP 7 mEq/L (8-16); CALCIUM 8.7 mg/dL (8.5-10.4); CARBON DIOXIDE 23 mEq/l (22-31); CHLORIDE 110 mEq/L (97-110); CREATININE 0.9 mg/dL (0.6-1.0); GLOMERULAR FILTRATION RATE 59; GLUCOSE 100 mg/dL (70-100); SODIUM 140 mEq/L (134-144)
[2017-07-30 07:43] LABS: PLATELET ESTIMATE ADEQUATE (ADEQ)
[2017-07-30 07:45] LABS: MACROCYTES 1+; POLYCHROMASIA 1+
[2017-07-30] MEDS ORDERED: SIMETHICONE 80 MG TAB CHEW PO ONE ×2 (08:44→09:30)
[2017-07-30] MEDS: INSULIN LISPRO 100 UNIT/1 ML VIAL STANDARD SC SCH ×3 (09:00→18:39)
[2017-07-30] MEDS: LEVOTHYROXINE 50 MCG TAB PO SCH (09:00)
--- NOTE | 2017-07-30 09:16 | SOAPPROG ---
KAREN Progress Note Assessment/Plan: Assessment:Plan: 07/26/17 13:42 EGD with minimal heme on area in duodenum that may have been scope trauma vs vasc ectasia Pt w/o melena, HB stable and BUN decreasing c/w no bleeding at present off anticoagulation for now in paroxysmal a fib 07/28/17 14:16 1) UGI bleed - HB up BUN down c/w no bleeding off anticoagulation. If no rebleed, then capsule study I am trying to see if anyway it can be done as an inpt 2) anticoag - on hold for now 3) A fib - asd per cardiology will follow 07/29/17 11:41 1) UGI bleed - will schedule capsule for tomorrow morning as inpt. Clear liquid dinner, NPO post MN. I will come in tomorrow am with my asst and get capsule performed. I will then return in afternoon to get the equipment and download the images. 2) anticoagulation - on hold 3) A fib - as per nutrition tech and hospitalists 07/30/17 09:13 1) UGI bleed - Hb going up, BUN down , capsule study in progress now. will retrun at 5pm or so to get belt and download images 2) anticoag- on hold for now with [id number] 3) afib - as per cardiology and hospitalists I am optimistic that the capsule will reveal her source of blood loss Subjective: cc- UGI bleed, anemia from blood loss, afib pt was getting from bed to chair no abdo pain, no n/v Objective: Vital Signs Temp Pulse Resp BP Pulse Ox 36.1 C 93 20 106/60 98 07/30/17 07:57 07/30/17 07:57 07/30/17 07:57 07/30/17 07:57 07/30/17 07:57 Microbiology 07/24/17 14:07 Urine Culture - Final Urine,Clean Catch Pseudomonas Species Klebsiella Pneumoniae 07/29/17 11:51 Gram Stain - Final Ankle - Swab Laboratory Results 07/30/17 06:05 07/30/17 06:05 07/29/17 07/30/17 07/31/17 05:59 05:59 05:59 Intake Total 2248 2656 Output Total 1150 1150 Balance 1098 1506 PT 14.0 SEC (12.0-15.0) 07/26/17 06:10 INR 1.09 (0.83-1.16) 07/26/17 06:10 Alert CTA S1S2 tachy +BS, soft NT Laboratory Tests 07/27/17 07/27/17 07/28/17 15:50 15:50 05:00 Hgb 7.4 L BUN 40 H 36 H 07/28/17 07/30/17 07/30/17 05:00 06:05 06:05 Hgb 7.8 L 7.9 L BUN 28 H ICD10 Worksheet Patient Problems: Problems Problem Status Onset Palliative care encounter Acute Renal insufficiency Acute Serum potassium elevated Acute Chronic Disease Managment/Transitional Care Program Acute Pneumonia Acute
[2017-07-30] MEDS ORDERED: SIMETHICONE DROPS 30 ML BOTTLE PO ONE (09:30)
--- NOTE | 2017-07-30 10:06 | PCMIDPN ---
Assessment/Plan: Assessment/Plan: * Probable sepsis of undefined etiology: Considerations include urinary source versus left lower extremity skin and soft tissue infection. Status post drainage of fluctuant area along left lower extremity yesterday with seromatous fluid drained which is culture negative to date although cultures may be affected by prior antibiotic therapy. Persistent, larger fluctuant area more medially which remains erythematous and tender - agree with plans for incision and drainage which is scheduled for later today. Unclear if this represents seroma, hematoma or abscess. Will continue cefepime in interim based on urine culture microbiology. 07/30/17 10:03 Subjective: Patient with tender area over left lower extremity. Objective: Vital Signs Temp Pulse Resp BP Pulse Ox 36.1 C 93 20 106/60 98 07/30/17 07:57 07/30/17 07:57 07/30/17 07:57 07/30/17 07:57 07/30/17 07:57 Microbiology 07/29/17 11:51 Gram Stain - Final Ankle - Swab 07/24/17 14:07 Urine Culture - Final Urine,Clean Catch Pseudomonas Species Klebsiella Pneumoniae Laboratory Results 07/30/17 06:05 07/30/17 06:05 07/29/17 07/30/17 07/31/17 05:59 05:59 05:59 Intake Total 2248 2656 Output Total 1150 1150 Balance 1098 1506 Cefepime # 5 Left lower extremity fluid collection gram stain negative, 2+ white blood cells , no growth to date - Physical Exam General Appearance: alert, no apparent distress, non-toxic EENT: No scleral icterus, No thrush, No conjunctival petechiae Cardiac/Chest: irregularly irregular Extremities: inflammation (Left lower extremity with erythema, tenderness and fluctuance medial to incision and drainage site which is clean without erythema or purulence) Abdomen: non-tender, No distended - Line/s RUE PICC Lines: No drainage, No erythema ICD10 Worksheet Patient Problems: Problems Problem Status Onset Palliative care encounter Acute Renal insufficiency Acute Serum potassium elevated Acute Chronic Disease Managment/Transitional Care Program Acute Pneumonia Acute
--- NOTE | 2017-07-30 10:09 | WOCRNPDOC ---
WOCRN Advanced Assessment Note - Skin Integrity Problem, Advanced Assess Left Lower Leg Dressing Type: Allevyn Life, Packing (2 pieces) Dressing Description: Intact, Shadowed Exudate Amount: Moderate Exudate Color: Red Exudate Characteristic(s): Bloody Integumentary Issue Intervention: Dressing Changed Astrid Wound Tissue: Erythema, Swollen Wound Bed Color: Red Wound Bed Constitution: Undermining (1.7cm circumferentially) Site Measurement - Head-to-Toe Length X Width X Depth (cm): 1.6x1.1x1 Skin Integrity Problem Comment: Wound cleaned with NS and gauze. Unable to visualize wound bed because of bloody drainage. Wound bed probed with Qtip to reveal circumferential undermining. Hemostasis achieved by holding pressure to the wound. Repacked with 1/4 inch Algidex Ag+, covered with gauze and an ABD and wrapped with kerlix. product demonstrator Elis villalobos. Wound care will round again early next week.
--- NOTE | 2017-07-30 10:27 | SOAPPROG ---
SOAP Progress Note Assessment/Plan: Assessment: Plan: Subjective: The patient has persistent fluctuance in the medial aspect of her left lower extremity. She is NPO, will plan to take her to the OR this afternoon for drainage. Discussed with Dr. Guerrero of Infectious Disease, will plan to take new cultures at that time Objective: Vital Signs Temp Pulse Resp BP Pulse Ox 36.1 C 93 20 106/60 98 07/30/17 07:57 07/30/17 07:57 07/30/17 07:57 07/30/17 07:57 07/30/17 07:57 Microbiology 07/29/17 11:51 Gram Stain - Final Ankle - Swab 07/24/17 14:07 Urine Culture - Final Urine,Clean Catch Pseudomonas Species Klebsiella Pneumoniae Laboratory Results 07/30/17 06:05 07/30/17 06:05 07/29/17 07/30/17 07/31/17 05:59 05:59 05:59 Intake Total 2248 2656 Output Total 1150 1150 Balance 1098 1506 PT 14.0 SEC (12.0-15.0) 07/26/17 06:10 INR 1.09 (0.83-1.16) 07/26/17 06:10 ICD10 Worksheet Patient Problems: Problems Problem Status Onset Palliative care encounter Acute Renal insufficiency Acute Serum potassium elevated Acute Chronic Disease Managment/Transitional Care Program Acute Pneumonia Acute
--- NOTE | 2017-07-30 11:08 | PDINTPN ---
Data Reporting Analyst Progress Note Assessment/Plan: Assessment: 87 F admitted 07/10/17 with hypokalemia and LAMONT after recent cellulitis treated with Bactrim. Cellulitis dx/rx after recent fall. She reported diarrhea (none this admission) from the bactrim which was thought to be causative of hypovolemia and LAMONT as this improved with IVF and briefly dopamine. Hyperkalemia resolved with HCO3, insulin, D50 in ER (though complicated by hypoglycemia and drop in BP). She had a syncopal episode while transferring to a chair associated with a long sinus pause on tele (reported between 5 and 12 seconds). She had a PPM placed 07/16. She has been in atrial fibrillation. Her hospital course has been complicated by upper GI bleeding and failure to thrive. * Anemia- S/P endoscopy x2 with no source of bleeding identified. No further ongoing bleeding is evident. Possible small bowel source: capsule endoscopy underway, with capsule currently in the stomach.. GI following. Hct stable today at 26. * Cellulitis- Associated with subcutaneous abscess LLE, drained yesterday. May have another. For I and D today. * AF: In and out of AF, mostly in. On amiodorone. On metoprolol. Rate control is better. No anticoagulation currently due to GIB/anemia, however this needs to be restarted for stroke prevention. * UTI: Pseudomonas in urine greater than 100,000, with a few Klebsiella as well. Both are sensitive to cefepime. Cannot use levofloxacin as she is allergic. * Hypotension: Mild, off NE. Multifactorial. * Hypoxia- improved. She does have underlying bronchiectasis. * Bronchiectasis- at her baseline O2 requirement (4lpm) with good saturations * NADIYA- Continue to use her home device at night * LAMONT- Resolved * DM- BG controlled * Weakness, failure to thrive. Not progressing. Discouraged. Plan: Continue care as SDU. For repeat I and D today of left lower extremity. Cont metoprolol 25 twice daily, amiodarone. Follow blood pressure and clinical status. Increase mobilization and strengthening as tolerated. Continue cefepime, current medications. Follow hematocrit and evidence of GI bleeding. Await results of the capsule endoscopy. 30 minutes of critical care time spent with the patient. Discussed with the patient's dtrs, nursing, GI and the ICU multi disciplinary team. Subjective: Discouraged, uncomfortable, but no significant focal pain. Weak. Denies shortness of breath. Objective: Vital Signs Temp Pulse Resp BP Pulse Ox 36.1 C 93 20 106/60 98 07/30/17 07:57 07/30/17 07:57 07/30/17 07:57 07/30/17 07:57 07/30/17 07:57 Microbiology 07/29/17 11:51 Gram Stain - Final Ankle - Swab 07/24/17 14:07 Urine Culture - Final Urine,Clean Catch Pseudomonas Species Klebsiella Pneumoniae Laboratory Results 07/30/17 06:05 07/30/17 06:05 07/29/17 07/30/17 07/31/17 05:59 05:59 05:59 Intake Total 2248 2656 Output Total 1150 1150 Balance 1098 1506 PT 14.0 SEC (12.0-15.0) 07/26/17 06:10 INR 1.09 (0.83-1.16) 07/26/17 06:10 Physical Exam - Physical Exam General Appearance: alert, no apparent distress, other (In chair) EENT: PERRL/EOMI, No other (Nasal cannula is at 2-3 L, her baseline) Neck: normal inspection Respiratory: lungs clear (Anteriorly), decreased breath sounds (At bases, with a few bibasilar rales) Cardiac/Chest: irregularly irregular (Better rate control, approximately 90 currently) Abdomen: normal bowel sounds, non-tender, soft Skin: warm/dry, pallor Extremities: other (Area of some fluctuance and tenderness with mild cellulitic change lateral distal lower right leg.) Neuro/Psych: no motor/sensory deficits, No cognition abnormalities ICD10 Worksheet Patient Problems: Problems Problem Status Onset Pneumonia Acute Chronic Disease Managment/Transitional Care Program Acute Renal insufficiency Acute Serum potassium elevated Acute Palliative care encounter Acute
[2017-07-30] MEDS: AMIODARONE HCL 200 MG TAB PO SCH ×2 (11:22→20:48)
[2017-07-30] MEDS: MULTIVITAMINS 1 EACH TAB PO SCH (11:23)
[2017-07-30] MEDS: METOPROLOL TARTRATE 25 MG TAB PO SCH ×2 (11:23→20:49)
[2017-07-30] MEDS: SENNOSIDES/DOCUSATE SODIUM TAB PO SCH ×2 (11:23→20:48)
[2017-07-30] MEDS ORDERED: BUPIVACAINE 0.5% 30 ML SDV ONE (12:22)
--- NOTE | 2017-07-30 12:29 | PDANEPAE ---
ANE History of Present Illness 87 yo F with STI here for I+D ANE Past Medical History - Cardiovascular History Hx Hypertension: Yes Hx Arrhythmias: Yes - Pulmonary History Hx COPD: Yes Hx Oxygen in Use at Home: Yes O2 in Use at Home (L/minute): 4 Hx Sleep Apnea: Yes Sleep Apnea Screening Result - Last Documented: Positive - Endocrine History Hx Diabetes: Yes Hypothyroid: Yes - Chronic Pain History Chronic Pain: No ANE Review of Systems Review of Systems: - Exercise capacity Exercise capacity: limited by disability - Systems Muscolosketal: Reports: joint pain (OA) - Pacemaker Pacemaker Hide Puller: [employer] Pacemaker Model: ASSURITY MRI Date Pacemaker Last Checked: 07/16/17 ANE Patient History - Allergies Allergies/Adverse Reactions: levofloxacin [Levofloxacin] Allergy (Verified 07/10/17 22:00) Rash - Home Medications Home Medications: Metformin HCl [Metformin 1000 mg] 1,000 mg PO BID 01/09/14 [Last Taken 07/10/17 09:00] Metoprolol Tartrate [Lopressor 25 mg (RX)] 25 mg PO BID 01/09/14 [Last Taken 11:20] Furosemide [Lasix 20 MG (*)] 20 mg PO DAILY 07/10/17 [Last Taken 07/10/17] Levothyroxine [Synthroid 50 mcg (*)] 50 mcg PO DAILY06 07/10/17 [Last Taken 11/25] Multivitamins [Multivitamin (*)] 1 each PO DAILY 07/10/17 [Last Taken 07/10/17] Pregabalin [Lyrica 50mg (*)] 50 mg PO BID 07/10/17 [Last Taken 07/10/17 09:00] - NPO status NPO Status: no food or drink >8 hours NPO Since - Liquids (Date): 07/30/17 NPO Since - Liquids (Time): 00:00 NPO Since - Solids (Date): 07/30/17 NPO Since - Solids (Time): 00:00 - Anes Hx Anes Hx: no prior problems - Smoking Hx Smoking Status: Never smoked - Alcohol Use Alcohol Use: None - Family Anes Hx Family Anes Hx: none ANE Labs/Vital Signs - Labs Result Diagrams: 07/30/17 06:05 07/30/17 06:05 - Vital Signs Blood Pressure: 106/60 Heart Rate: 93 Respiratory Rate: 20 O2 Sat (%): 98 Height: 165.1 cm Weight: 64 kg ANE Physical Exam - Airway Neck exam: FROM Mallampati Score: Class 2 Mouth exam: normal dental/mouth exam - Pulmonary Pulmonary: no respiratory distress - Cardiovascular Cardiovascular: regular rate and rhythym, no murmur, rub, or gallop - ASA Status ASA Status: III ANE Anesthesia Plan Anesthesia Plan: GA w LMA (backup plan), GA with mask Total IV Anesthesia: Yes
[2017-07-30] MEDS ORDERED: PROPOFOL/EMULSION 500 MG/50 ML BOTTLE IV ONE (12:47)
[2017-07-30] MEDS ORDERED: KETAMINE 100 MG/10 ML SYR ONE (12:47)
[2017-07-30] MEDS ORDERED: PHENYLEPHRINE HCL 100 MCG/ML SYR ONE (13:14)
[2017-07-30] MEDS ORDERED: NALOXONE HCL 0.4 MG/ML INJ IVP PRN (14:26)
[2017-07-30] MEDS ORDERED: fentaNYL 100 MCG/2 ML INJ IVP PRN (14:26)
[2017-07-30] MEDS ORDERED: ONDANSETRON 4 MG/2 ML VIAL IVP PRN (14:26)
--- NOTE | 2017-07-30 14:27 | POSTANESTH ---
Post Anesthetic Evaluation Cardiovascular Status: Normal, Stable, Similar to Pre-Op Cond Respiratory Status: Normal, Stable, Similar to Pre-op Cond. Level of Consciousness/Mental Status: Can Participate in Eval, Alert and Oriented Pain Control: Adequate, Prn Tx Ordered Nausea/Vomiting Control: Adequate, Prn Tx Ordered Complications Possibly Related to Anesthesia: None Noted
--- NOTE | 2017-07-30 16:09 | POSTOPPROG ---
Post Op Note Date of Operation: 07/30/17 Surgeon: Cristino Arias Anesthesiologist: Suma Anesthesia: IV Sedation Pre-op Diagnosis: LLE abscess Post-op Diagnosis: sane Procedure: Incision and drainage of LLE abscess, down to fascia Findings: old blood, minimal purulence, Cx taken Inf/Abcess present in the surg proc area at time of surgery?: Yes Depth: Superfical (Skin SQ) EBL: Minimal Total fluids administered: 3000cc NS irrigation Specimen(s): Cx
--- NOTE | 2017-07-30 17:28 | HOSPPROG ---
Hospitalist Progress Note Assessment/Plan: 87 F admitted 07/10/17 with hypokalemia and LAMONT after recent cellulitis treated with Bactrim, hospital course complicated by long sinus pause requiring PPM and GI bleed. # UGIB: s/p endoscopy x 2, presumed SB source of bleed but no active bleeding found. GI performing capsule endoscopy today # acute blood loss anemia: in setting of above, stable s/p tx 4 units PRBCs total during this hospital stay # cellulitis: with LLE abscess noticed and taken to OR for drainage with plan to repeat today # shock: septic versus hypovolemic, now off of pressors and doing well, at this point it is difficult to determine what led to her acute decline--at the time of decompensation no cultures were drawn. Treating as presumed septic shock. # pseudomonal UTI: being treated with cefepime, in association of above, small number of klebsiella on culture. # a fib/flutter w/rvr: no AC given GI bleed, continued on amio/dilt but rate control suboptimal and restarted on metoprolol, cardiology following # complete heart block: with long pause and now s/p PPM, cardiology following # protein calorie malnutrition: dietary following # DM2: continue SSI/ holding metformin # lamont/hyperkalemia: resolved, was present on admission due to hypovolemia and op bactrim use # cellulitis: resolved, s/p 7 days of abx # DNR # IP status Care plan reviewed with Dr. Williamson and multidisciplinary care team on rounds. Subjective: paitent to OR for drainage of LLE abscess, remains fatigued Objective: Vital Signs Temp Pulse Resp BP Pulse Ox 36.1 C 61 15 99/58 L 100 07/30/17 16:00 07/30/17 16:00 07/30/17 16:00 07/30/17 16:00 07/30/17 16:00 Microbiology 07/30/17 13:35 Gram Stain - Final Leg - Eswab 07/29/17 11:51 Gram Stain - Final Ankle - Swab 07/24/17 14:07 Urine Culture - Final Urine,Clean Catch Pseudomonas Species Klebsiella Pneumoniae Laboratory Results 07/30/17 06:05 07/30/17 06:05 07/29/17 07/30/17 07/31/17 05:59 05:59 05:59 Intake Total 2248 2656 300 Output Total 1150 1150 0 Balance 1098 1506 300 PT 14.0 SEC (12.0-15.0) 07/26/17 06:10 INR 1.09 (0.83-1.16) 07/26/17 06:10 elderly female, awake alert nad anicteric op clear irreg irreg cta with normal wob soft nt nd no cce warm dry well perfused scattered ecchymosis oriented appropriate ICD10 Worksheet Patient Problems: Problems Problem Status Onset Palliative care encounter Acute Renal insufficiency Acute Serum potassium elevated Acute Chronic Disease Managment/Transitional Care Program Acute Pneumonia Acute
[2017-07-30 18:18] LABS: GLUCOSE 94 mg/dL (70-100); POTASSIUM 4.2 mEq/L (3.5-5.2)
--- NOTE | 2017-07-30 18:37 | GOP ---
[f rep st] OPERATIVE REPORT DATE OF OPERATION: 07/30/2017 SURGEON: Cristino Arias MD CANVAS BASTER JUMPBASTING: None. ANESTHESIA: IV sedation provided by Dr. Moise. PREOPERATIVE DIAGNOSIS: Left lower extremity abscess. POSTOPERATIVE DIAGNOSIS: Left lower extremity abscess. PROCEDURE PERFORMED: Incision and drainage of left lower extremity abscess down to the fascia, measu ring approximately 8 x 3 x 3 cm. FINDINGS: Old blood, minimal purulence. SPECIMENS: Cultures were taken. ESTIMATED BLOOD LOSS: 5 cc. DESCRIPTION OF PROCEDURE: The patient was greeted in the preoperative suite. Once again, risks, carina efits, and alternatives were discussed. Consent was signed. She was then brought back to the operat lusi a suite, placed on the OR table in a supine position. After all anesthesia machines, including SCD s, were on and functioning, [employer] time-out was performed ending with all in agree ment. After successful induction of IV anesthesia, the patient's left lower extremity was prepped an d draped in typical sterile fashion. I made initially a 3 cm incision over the area of greatest fluc tuance in the left lower medial extremity. Just deep to this, I encountered some purulent old blood but really not a huge abscess cavity. This cavity did track somewhat inferiorly and I opened this up for an approximately 8 cm run. I carried this down into the muscle but not deep to the fascia. I t hen evacuated all the old blood. After all of the purulent and bloody material had been removed, I i rrigated the area with 3 L normal saline. Hemostasis was achieved with gentle pressure. After hemos tasis, I packed the area with Betadine-soaked Kerlix over which sterile ABD dressing was placed. The patient was then gently awakened and taken to the PACU in satisfactory condition. COUNTS: All were reported as correct x2. /[id number]/MODL
[2017-07-30] MEDS: MAGNESIUM HYDROXIDE 30 ML UDCUP PO PRN (20:49)
[2017-07-31] MEDS: LEVOTHYROXINE 50 MCG TAB PO SCH (06:07)
[2017-07-31] MEDS: CEFEPIME HCL 1 GM in D5W 50 ML IV SCH ×3 (06:07→21:08)
[2017-07-31 06:19] LABS: % IMMATURE GRANULYOCYTES 0.7 % (0.0-1.1); ABSOLUTE IMMATURE GRANULOCYTES 0.07 10^3/uL (0.00-0.10); ABSOLUTE NRBC COUNT 0.03 10^3/uL (0-0.01); ADD DIFF? NO; ADD MORPH? YES; ADD SCAN? NO; ATYPICAL LYMPHOCYTE FLAG 50 (0-99); FRAGMENT RBC FLAG 0 (0-99); HEMATOCRIT 27.1 % (38.0-47.0); HEMOGLOBIN 8.2 g/dL (12.6-16.3); LEFT SHIFT FLG 0 (0-99); LIPEMIA HEMOLYSIS FLAG 80 (0-99); MEAN CELL HEMOGLOBIN 30.7 pg (27.9-34.1); MEAN CELL HEMOGLOBIN CONCENTR. 30.3 g/dL (32.4-36.7); MEAN CELL VOLUME 101.5 fL (81.5-99.8); MEAN PLATELET VOLUME 9.6 fL (8.7-11.7); NRBC-AUTO% 0.3 % (0.0-0.2); PLATELET CLUMPS FLAG 0 (0-99); PLATELET COUNT 331 10^3/uL (150-400); RED BLOOD CELL COUNT 2.67 10^6/uL (4.18-5.33)
[2017-07-31 06:25] LABS: RED CELL DISTRIBUTION WIDTH 20.8 % (11.5-15.2)
[2017-07-31 06:50] LABS: ANION GAP 7 mEq/L (8-16); CALCIUM 8.6 mg/dL (8.5-10.4); CARBON DIOXIDE 22 mEq/l (22-31); CHLORIDE 112 mEq/L (97-110); GLOMERULAR FILTRATION RATE 52; GLUCOSE 97 mg/dL (70-100); POTASSIUM 4.8 mEq/L (3.5-5.2); SODIUM 141 mEq/L (134-144)
[2017-07-31 06:51] LABS: HYPOCHROMIA 1+; MACROCYTES 1+; MICROCYTES 2+; PLATELET ESTIMATE ADEQUATE (ADEQ); POLYCHROMASIA 1+
[2017-07-31] MEDS: METOPROLOL TARTRATE 25 MG TAB PO SCH ×2 (08:19→21:08)
[2017-07-31] MEDS: MULTIVITAMINS 1 EACH TAB PO SCH (08:19)
[2017-07-31] MEDS: AMIODARONE HCL 200 MG TAB PO SCH ×2 (08:19→21:08)
[2017-07-31] MEDS: SENNOSIDES/DOCUSATE SODIUM TAB PO SCH ×2 (08:19→21:08)
[2017-07-31] MEDS: INSULIN LISPRO 100 UNIT/1 ML VIAL STANDARD SC SCH ×3 (08:25→19:00)
--- NOTE | 2017-07-31 08:39 | CPEKG ---
Heart Rate: 68 RR Interval: 882 P-R Interval: 212 QRSD Interval: 102 QT Interval: 400 QTC Interval: 426 P Barnett: 115 QRS Barnett: 75 T Wave Barnett: 219 EKG Severity - ABNORMAL ECG - EKG Impression: atrial flutter vs atrial tachycardia EKG Impression: LOW VOLTAGE IN FRONTAL LEADS EKG Impression: NONSPECIFIC T ABNORMALITIES, DIFFUSE LEADS Electronically Signed By: Bob Esposito 31-Jul-2017 11:06:06
--- NOTE | 2017-07-31 13:35 | SOAPPROG ---
KAREN Progress Note Assessment/Plan: Assessment:Plan: 07/26/17 13:42 EGD with minimal heme on area in duodenum that may have been scope trauma vs vasc ectasia Pt w/o melena, HB stable and BUN decreasing c/w no bleeding at present off anticoagulation for now in paroxysmal a fib 1) UGI bleed - Hb going up, BUN down , capsule study in progress now. will retrun at 5pm or so to get belt and download images 2) anticoag- on hold for now with [id number] 3) afib - as per cardiology and hospitalists I am optimistic that the capsule will reveal her source of blood loss 07/31/17 13:32 1) UGI bleed - capsule did not leave her stomach during the 8 hour time. Her Hb is up and BUN down off anticoagulation 2) a fib - as per cardiology 3) anticoagulation - daughters are thinking of not restarting which is a reasonable idea. I will discuss with Jerome Carballo re: this. It can always be restarted in the future. I suspect it will cause her to bleed more again. Dr. Hernandez to bean picker inpt service at 5pm today Subjective: CC - UGI bleed with anemia, afib pt becoming a bit discouraged no pain, no n/v, no melena Objective: Vital Signs Temp Pulse Resp BP Pulse Ox 36.6 C 79 20 96/57 L 98 07/31/17 11:43 07/31/17 11:43 07/31/17 11:43 07/31/17 11:43 07/31/17 11:43 Microbiology 07/29/17 11:51 Gram Stain - Final Ankle - Swab 07/30/17 13:35 Gram Stain - Final Leg - Eswab Laboratory Results 07/31/17 06:06 07/31/17 06:06 07/30/17 07/31/17 08/01/17 05:59 05:59 05:59 Intake Total 2656 2099 Output Total 1150 0 Balance 1506 2099 PT 14.0 SEC (12.0-15.0) 07/26/17 06:10 INR 1.09 (0.83-1.16) 07/26/17 06:10 Alert coarse BS S1S2, irreg irreg tachy +BS, s Laboratory Tests 07/30/17 07/30/17 07/31/17 06:05 06:05 06:06 Hgb 7.9 L BUN 28 H 26 H 07/31/17 06:06 Hgb 8.2 L BUN oft nt ICD10 Worksheet Patient Problems: Problems Problem Status Onset Palliative care encounter Acute Renal insufficiency Acute Serum potassium elevated Acute Chronic Disease Managment/Transitional Care Program Acute Pneumonia Acute
--- NOTE | 2017-07-31 13:52 | PCMIDPN ---
Assessment/Plan: Assessment: Probable sepsis of unclear etiology. We have no blood cultures from earlier when the patient became hypotensive so it is difficult to tell what the etiology of this episode might have been. Patient does have some abnormal urinalysis from that time although the pyuria was not extensive. The presence of bacteria in the urine of an 87-year-old female is a quite normal circumstance. Agree with empirically covering for the Pseudomonas and Klebsiella as possible etiologic agents from urinary source with cefepime given the circumstances are quite consistent with bacterial sepsis. Left lower extremity areas status post incision and drainage. Given the prior antibiotic use it is unclear whether the operative cultures will grow out a pathogen. Plan: 1. Continue IV cefepime. 2. Follow clinical course. Subjective: Patient is sitting up in her hospital bed. Her family is in the room. Patient seems talkative and happy. Her family states that her spirits have been low the last couple of days but this morning she appears to be in her normal state. No fevers or chills. Objective: Cefepime # 6 Vital Signs Temp Pulse Resp BP Pulse Ox 36.6 C 79 20 96/57 L 98 07/31/17 11:43 07/31/17 11:43 07/31/17 11:43 07/31/17 11:43 07/31/17 11:43 Microbiology 07/29/17 11:51 Gram Stain - Final Ankle - Swab 07/30/17 13:35 Gram Stain - Final Leg - Eswab Laboratory Results 07/31/17 06:06 07/31/17 06:06 07/30/17 07/31/17 08/01/17 05:59 05:59 05:59 Intake Total 2656 2099 Output Total 1150 0 Balance 1506 2099 - Physical Exam General Appearance: WD/WN, alert, no apparent distress, non-toxic Respiratory: lungs clear, normal breath sounds, No respiratory distress Cardiac/Chest: regular rate, rhythm, No tachycardia Extremities: No non-tender, No normal inspection (Left lower extremity status post I and D. No strike through.) Skin: normal color, warm/dry, No rash Neuro/Psych: alert, normal mood/affect, oriented x 3 ICD10 Worksheet Patient Problems: Problems Problem Status Onset Palliative care encounter Acute Renal insufficiency Acute Serum potassium elevated Acute Chronic Disease Managment/Transitional Care Program Acute Pneumonia Acute
--- NOTE | 2017-07-31 14:47 | SOAPPROG ---
SOAP Progress Note Assessment/Plan: Assessment/Plan: 87yo F POD#1 s/p LLE medial lower leg I&D - dressings not saturated, will attempt to take down later today to eval with team. Repeat cultures taken and are pending. ?whether would benefit from VAC. 07/31/17 14:45 07/31/17 14:46 Subjective: Pain is about the same, drainage from the site has been minimal Objective: Vital Signs Temp Pulse Resp BP Pulse Ox 36.6 C 79 20 96/57 L 98 07/31/17 11:43 07/31/17 11:43 07/31/17 11:43 07/31/17 11:43 07/31/17 11:43 Microbiology 07/29/17 11:51 Gram Stain - Final Ankle - Swab 07/30/17 13:35 Gram Stain - Final Leg - Eswab Laboratory Results 07/31/17 06:06 07/31/17 06:06 07/30/17 07/31/17 08/01/17 05:59 05:59 05:59 Intake Total 2656 2099 Output Total 1150 0 Balance 1506 2099 PT 14.0 SEC (12.0-15.0) 07/26/17 06:10 INR 1.09 (0.83-1.16) 07/26/17 06:10 ICD10 Worksheet Patient Problems: Problems Problem Status Onset Palliative care encounter Acute Renal insufficiency Acute Serum potassium elevated Acute Chronic Disease Managment/Transitional Care Program Acute Pneumonia Acute
--- NOTE | 2017-07-31 14:47 | HOSPPROG ---
Hospitalist Progress Note Assessment/Plan: 87 F admitted 07/10/17 with hypokalemia and LAMONT after recent cellulitis treated with Bactrim, hospital course complicated by long sinus pause requiring PPM and GI bleed. UGIB: s/p endoscopy x 2, presumed SB source of bleed but no active bleeding found. GI performing capsule endoscopy today no results yet from capsule hg stable 6 units thus far acute blood loss anemia: in setting of above, stable s/p tx 6 units PRBCs total during this hospital stay cellulitis: with LLE abscess noticed and taken to OR for drainage with plan to repeat today micro neg minimal purulence seen in OR shock: septic versus hypovolemic, now off of pressors and doing well, at this point it is difficult to determine what led to her acute decline--at the time of decompensation no cultures were drawn. Treating as presumed septic shock. pseudomonal UTI: being treated with cefepime, in association of above, small number of klebsiella on culture. a fib/flutter w/rvr: no AC given GI bleed, continued on amio/dilt but rate control suboptimal and restarted on metoprolol, cardiology following patient and family acknowledge risk of stroke, favor no AC going forward complete heart block: with long pause and now s/p PPM, cardiology following protein calorie malnutrition: dietary following DM2: continue SSI/ holding metformin lamont/hyperkalemia: resolved, was present on admission due to hypovolemia and op bactrim use DNR IP status Care plan reviewed with Dr. Williamson and multidisciplinary care team on rounds. Subjective: case d/w dr zendejas. tele: AF (interp by ri) Objective: Vital Signs Temp Pulse Resp BP Pulse Ox 36.6 C 79 20 96/57 L 98 07/31/17 11:43 07/31/17 11:43 07/31/17 11:43 07/31/17 11:43 07/31/17 11:43 Microbiology 07/29/17 11:51 Gram Stain - Final Ankle - Swab 07/30/17 13:35 Gram Stain - Final Leg - Eswab Laboratory Results 07/31/17 06:06 07/31/17 06:06 07/30/17 07/31/17 08/01/17 05:59 05:59 05:59 Intake Total 2656 2099 Output Total 1150 0 Balance 1506 2099 PT 14.0 SEC (12.0-15.0) 07/26/17 06:10 INR 1.09 (0.83-1.16) 07/26/17 06:10 - Physical Exam Constitutional: no apparent distress, appears nourished Eyes: PERRL, anicteric sclera Ears, Nose, Mouth, Throat: moist mucous membranes, hearing normal Cardiovascular: irregularly irregular, No systolic murmur Respiratory: no respiratory distress, no rales or rhonchi Gastrointestinal: normoactive bowel sounds, soft, non-tender abdomen Genitourinary: No pink in urethra Skin: warm, normal color Musculoskeletal: full muscle strength Neurologic: AAOx3 ICD10 Worksheet Patient Problems: Problems Problem Status Onset Palliative care encounter Acute Renal insufficiency Acute Serum potassium elevated Acute Chronic Disease Managment/Transitional Care Program Acute Pneumonia Acute
--- NOTE | 2017-07-31 15:20 | ASMTCMCOM ---
CM Note CM Note Notes: Pt had I&D of LLE yesterday. Met w/pt and dtr to discuss DC POC which is still to [facility] when med stable. Updated Shannon at [facility]. DON w/f. Date Signed: 07/31/2017 03:19 PM Electronically Signed By:Jaycee De Jesus RN
--- NOTE | 2017-07-31 16:14 | SOAPPROG ---
KAREN Progress Note Assessment/Plan: Assessment: 1. Atrial fibrillation 2. Sick sinus syndrome 3. Permanent pacemaker 4. Fatigue 5. Weakness Plan: 07/27/17 15:09 07/31/17 16:08 I have discussed anticoagulation with the pt , daughters , Dr Williamson . I recommend asa only despite a high chads-vasc score due to her recent anemia and other issues requiring transfusion . She is unsteady and also very high fall/ trauma risk ,. Daughters do not want her on full anticoag because of fear of cx from the meds/., All agree w this recommendation and accept the increased stroke risk that goes w asa and realize the perferred therapy to prevent cva is not being choosen . Pt not examined today - no charge for todays care. All ?'s answered. will sign off please call if any questions or we can help. thank you very much . Objective: Vital Signs Temp Pulse Resp BP Pulse Ox 36.8 C 95 22 H 97/56 L 99 07/31/17 15:42 07/31/17 15:42 07/31/17 15:42 07/31/17 15:42 07/31/17 15:42 Microbiology 07/29/17 11:51 Gram Stain - Final Ankle - Swab 07/30/17 13:35 Gram Stain - Final Leg - Eswab Laboratory Results 07/31/17 06:06 07/31/17 06:06 07/30/17 07/31/17 08/01/17 05:59 05:59 05:59 Intake Total 2656 2099 Output Total 1150 0 Balance 1506 2099 PT 14.0 SEC (12.0-15.0) 07/26/17 06:10 INR 1.09 (0.83-1.16) 07/26/17 06:10 ICD10 Worksheet Patient Problems: Problems Problem Status Onset Palliative care encounter Acute Renal insufficiency Acute Serum potassium elevated Acute Chronic Disease Managment/Transitional Care Program Acute Pneumonia Acute
[2017-07-31 18:17] LABS: POTASSIUM 4.4 mEq/L (3.5-5.2)
[2017-07-31] MEDS: MAGNESIUM HYDROXIDE 30 ML UDCUP PO PRN (21:12)
[2017-08-01] MEDS: CEFEPIME HCL 1 GM in D5W 50 ML IV SCH ×3 (06:36→21:30)
[2017-08-01 06:56] LABS: POTASSIUM 4.4 mEq/L (3.5-5.2)
[2017-08-01] MEDS: SENNOSIDES/DOCUSATE SODIUM TAB PO SCH ×3 (10:45→20:03)
[2017-08-01] MEDS: AMIODARONE HCL 200 MG TAB PO SCH ×2 (10:45→20:04)
[2017-08-01] MEDS: MULTIVITAMINS 1 EACH TAB PO SCH (10:46)
[2017-08-01] MEDS: INSULIN LISPRO 100 UNIT/1 ML VIAL STANDARD SC SCH ×3 (10:46→18:23)
[2017-08-01] MEDS: METOPROLOL TARTRATE 25 MG TAB PO SCH ×2 (10:47→20:04)
[2017-08-01] MEDS: LEVOTHYROXINE 50 MCG TAB PO SCH (10:48)
--- NOTE | 2017-08-01 11:45 | SOAPPROG ---
SOAP Progress Note Assessment/Plan: Assessment: Occult GIB unclear cause. Pill capsule did not leave stomach. Suspect will pass as there is no GOO on recent EGDs. Patient has elected to stop anticoagulation except for ASA. She prefers to avoid further invasive procedures. Family is requesting abd film to check for passage of capsule. Plan: Check Abd film today to assess fro passage of capsule. If still present then would recheck film in a few days Monitor for rebleeding. If this should occur then I recommend Tagged cell scan to identify location of bleeding. Subjective: CC GIB Pt has had no melena or BRBPR reported last 24 hours She has had no diarrhea Objective: Vital Signs Temp Pulse Resp BP Pulse Ox 35.7 C L 79 18 113/64 97 08/01/17 08:00 08/01/17 08:00 08/01/17 08:00 08/01/17 08:00 08/01/17 08:00 Microbiology 07/30/17 13:35 Gram Stain - Final Leg - Eswab 07/29/17 11:51 Gram Stain - Final Ankle - Swab Wound Culture - Final Laboratory Results 07/31/17 06:06 08/01/17 06:30 07/31/17 08/01/17 08/02/17 05:59 05:59 05:59 Intake Total 2099 750 Output Total 0 1 Balance 2099 750 -1 PT 14.0 SEC (12.0-15.0) 07/26/17 06:10 INR 1.09 (0.83-1.16) 07/26/17 06:10 Physical Exam - Physical Exam General Appearance: alert, no apparent distress Respiratory: lungs clear Cardiac/Chest: regular rate, rhythm Abdomen: non-tender, soft ICD10 Worksheet Patient Problems: Problems Problem Status Onset Palliative care encounter Acute Renal insufficiency Acute Serum potassium elevated Acute Chronic Disease Managment/Transitional Care Program Acute Pneumonia Acute
--- NOTE | 2017-08-01 16:26 | HOSPPROG ---
Hospitalist Progress Note Assessment/Plan: * GIB due to anticoagulation -now stable off anti-coag -EGD negative -SB capsule stuck RLQ - no data -consider CT abd/pelvis * Afib -ASA only due to bleed -metoprolol, amiodarone, diltiazem * ABL anemia -s/p 6 units PRBC * ARF/hyperkalemia - due to hypovolemia + Bactrim * Hypotension/shock - dopamine gtt weaned off -probably due to sepsis * LLE cellulitis with abscess s/p I& D -IV ancef -may need wound vac * Cardiac pause - 12 seconds - s/p PCM * Bronchiectasis with chronic respiratory failure - 4L * NADIYA/CPAP * DM II * Pseudomonas UTI -IV cefepime Subjective: no BM for many days Objective: Vital Signs Temp Pulse Resp BP Pulse Ox 36.6 C 75 18 101/62 98 08/01/17 15:28 08/01/17 15:28 08/01/17 15:28 08/01/17 15:28 08/01/17 15:28 Microbiology 07/30/17 13:35 Gram Stain - Final Leg - Eswab 07/29/17 11:51 Gram Stain - Final Ankle - Swab Wound Culture - Final Laboratory Results 07/31/17 06:06 08/01/17 06:30 07/31/17 08/01/17 08/02/17 05:59 05:59 05:59 Intake Total 2099 750 120 Output Total 0 1 Balance 2099 750 119 PT 14.0 SEC (12.0-15.0) 07/26/17 06:10 INR 1.09 (0.83-1.16) 07/26/17 06:10 d/w Dr. Hernandez regarding GI plan for KUB KUB - capsule stuck RLQ - no obstruction - Physical Exam Constitutional: no apparent distress, appears nourished, not in pain Cardiovascular: regular rate and rhythym, no murmur, rub, or gallop Respiratory: no respiratory distress, no rales or rhonchi, clear to auscultation Gastrointestinal: normoactive bowel sounds, soft, non-tender abdomen, no palpable masses Skin: no rashes or abrasions, no fluctuance, no induration Neurologic: AAOx3, sensation intact bilaterally Psychiatric: interacting appropriately, not anxious, not encephalopathic, thought process linear ICD10 Worksheet Patient Problems: Problems Problem Status Onset Palliative care encounter Acute Renal insufficiency Acute Serum potassium elevated Acute Chronic Disease Managment/Transitional Care Program Acute Pneumonia Acute
--- NOTE | 2017-08-01 17:05 | PCMIDPN ---
Assessment/Plan: Assessment: Probable sepsis of unclear etiology. We have no blood cultures from earlier when the patient became hypotensive so it is difficult to tell what the etiology of this episode might have been. Patient does have some abnormal urinalysis from that time although the pyuria was not extensive. The presence of bacteria in the urine of an 87-year-old female is a quite normal circumstance. Agree with empirically covering for the Pseudomonas and Klebsiella as possible etiologic agents from urinary source with cefepime given the circumstances are quite consistent with bacterial sepsis. Left lower extremity areas status post incision and drainage. Given the prior antibiotic use it is unclear whether the operative cultures will grow out a pathogen. Would plan on truncate into a 7 day course at this point in time. That means we will discontinue antibiotics tomorrow. Plan: 1. Continue IV cefepime. 2. Follow clinical course. 08/01/17 17:05 Subjective: Patient is resting in her hospital bed. Daughter arrived in the room after conversation began. Patient states that she is feeling very tired today. Daughter corroborated that she did not get upper sit in the chair much today at all. No fevers or chills. Just feels overall weak. Objective: Cefepime # 7 Vital Signs Temp Pulse Resp BP Pulse Ox 36.6 C 75 18 101/62 98 08/01/17 15:28 08/01/17 15:28 08/01/17 15:28 08/01/17 15:28 08/01/17 15:28 Microbiology 07/30/17 13:35 Gram Stain - Final Leg - Eswab 07/29/17 11:51 Gram Stain - Final Ankle - Swab Wound Culture - Final Laboratory Results 07/31/17 06:06 08/01/17 06:30 07/31/17 08/01/17 08/02/17 05:59 05:59 05:59 Intake Total 2099 750 120 Output Total 0 1 Balance 2099 750 119 - Physical Exam General Appearance: WD/WN, alert, no apparent distress, non-toxic Respiratory: lungs clear, normal breath sounds, No respiratory distress Cardiac/Chest: regular rate, rhythm, No tachycardia Skin: normal color, warm/dry, No rash Neuro/Psych: alert, normal mood/affect, oriented x 3 ICD10 Worksheet Patient Problems: Problems Problem Status Onset Palliative care encounter Acute Renal insufficiency Acute Serum potassium elevated Acute Chronic Disease Managment/Transitional Care Program Acute Pneumonia Acute
--- NOTE | 2017-08-01 17:34 | SOAPPROG ---
SOAP Progress Note Assessment/Plan: Assessment: 87-YEAR-OLD FEMALE STATUS POST I AND D OF LEFT LEG ABSCESS/DRESSING DRY AND INTACT/POSSIBLE PALPABLE PULSES/UNDERGOING GI WORKUP FOR OCCULT BLEEDING Plan: DRESSING CHANGE IN THE A.M. TO EVALUATE FOR WOUND VAC BENEFIT/ARTERIAL STUDIES TO EVALUATE CIRCULATION 08/01/17 17:33 Objective: Vital Signs Temp Pulse Resp BP Pulse Ox 36.6 C 75 18 101/62 98 08/01/17 15:28 08/01/17 15:28 08/01/17 15:28 08/01/17 15:28 08/01/17 15:28 Microbiology 07/30/17 13:35 Gram Stain - Final Leg - Eswab 07/29/17 11:51 Gram Stain - Final Ankle - Swab Wound Culture - Final Laboratory Results 07/31/17 06:06 08/01/17 06:30 07/31/17 08/01/17 08/02/17 05:59 05:59 05:59 Intake Total 2099 750 120 Output Total 0 1 Balance 2099 750 119 PT 14.0 SEC (12.0-15.0) 07/26/17 06:10 INR 1.09 (0.83-1.16) 07/26/17 06:10 ICD10 Worksheet Patient Problems: Problems Problem Status Onset Palliative care encounter Acute Renal insufficiency Acute Serum potassium elevated Acute Chronic Disease Managment/Transitional Care Program Acute Pneumonia Acute
[2017-08-01 18:04] LABS: POTASSIUM 4.6 mEq/L (3.5-5.2)
[2017-08-01] MEDS: POLYETHYLENE GLYCOL 3350 17 GM PKT PO PRN (20:10)
[2017-08-02] MEDS: CEFEPIME HCL 1 GM in D5W 50 ML IV SCH ×2 (05:17→13:32)
[2017-08-02] MEDS: LEVOTHYROXINE 50 MCG TAB PO SCH (05:17)
[2017-08-02 05:39] LABS: % IMMATURE GRANULYOCYTES 0.4 % (0.0-1.1); ABSOLUTE IMMATURE GRANULOCYTES 0.04 10^3/uL (0.00-0.10); ABSOLUTE NRBC COUNT 0.02 10^3/uL (0-0.01); ADD DIFF? NO; ADD MORPH? YES; ADD SCAN? NO; ATYPICAL LYMPHOCYTE FLAG 20 (0-99); FRAGMENT RBC FLAG 0 (0-99); HEMATOCRIT 26.9 % (38.0-47.0); LEFT SHIFT FLG 0 (0-99); LIPEMIA HEMOLYSIS FLAG 70 (0-99); MEAN CELL HEMOGLOBIN 30.2 pg (27.9-34.1); MEAN CELL HEMOGLOBIN CONCENTR. 29.7 g/dL (32.4-36.7); MEAN CELL VOLUME 101.5 fL (81.5-99.8); MEAN PLATELET VOLUME 9.3 fL (8.7-11.7); NRBC-AUTO% 0.2 % (0.0-0.2); PLATELET CLUMPS FLAG 20 (0-99); PLATELET COUNT 324 10^3/uL (150-400); RED BLOOD CELL COUNT 2.65 10^6/uL (4.18-5.33)
[2017-08-02 05:41] LABS: RED CELL DISTRIBUTION WIDTH 20.1 % (11.5-15.2)
[2017-08-02 05:53] LABS: ANION GAP 7 mEq/L (8-16); CALCIUM 8.6 mg/dL (8.5-10.4); CARBON DIOXIDE 25 mEq/l (22-31); CHLORIDE 108 mEq/L (97-110); CREATININE 0.9 mg/dL (0.6-1.0); GLOMERULAR FILTRATION RATE 59; GLUCOSE 106 mg/dL (70-100); POTASSIUM 4.2 mEq/L (3.5-5.2); SODIUM 140 mEq/L (134-144)
[2017-08-02 06:10] LABS: HYPOCHROMIA 1+; MACROCYTES 1+; MICROCYTES 1+; PLATELET ESTIMATE ADEQUATE (ADEQ); POLYCHROMASIA 1+
[2017-08-02] MEDS: MULTIVITAMINS 1 EACH TAB PO SCH (09:41)
[2017-08-02] MEDS: METOPROLOL TARTRATE 25 MG TAB PO SCH ×2 (09:41→21:08)
[2017-08-02] MEDS: AMIODARONE HCL 200 MG TAB PO SCH ×2 (09:42→21:09)
[2017-08-02] MEDS: SENNOSIDES/DOCUSATE SODIUM TAB PO SCH ×2 (09:42→21:20)
[2017-08-02] MEDS: POLYETHYLENE GLYCOL 3350 17 GM PKT PO PRN (09:44)
[2017-08-02] MEDS: INSULIN LISPRO 100 UNIT/1 ML VIAL STANDARD SC SCH ×3 (09:48→19:14)
--- NOTE | 2017-08-02 10:34 | SOAPPROG ---
SOAP Progress Note Assessment/Plan: Assessment: Occult GIB unclear cause. No e/o rebleeding H+H stable. Pt has stopped anticoagulation. Pill capsule in RLQ suspect will pass in a few days Constipation Plan: Monitor for rebleeding. If this should occur then I recommend Tagged cell scan to identify location of bleeding. Agree with treatment for constipation If capsule does not pas in stools then recommend abd film in 1 week Will sign off 08/02/17 10:31 Subjective: CC GIB Pt feel better today, no BM no melena Objective: Vital Signs Temp Pulse Resp BP Pulse Ox 36.3 C 94 18 100/72 97 08/02/17 09:30 08/02/17 09:30 08/02/17 09:30 08/02/17 09:30 08/02/17 09:30 Microbiology 07/30/17 13:35 Gram Stain - Final Leg - Eswab 07/29/17 11:51 Gram Stain - Final Ankle - Swab Wound Culture - Final Laboratory Results 08/02/17 05:30 08/02/17 05:30 08/01/17 08/02/17 08/03/17 05:59 05:59 05:59 Intake Total 750 1378 Output Total 1 150 Balance 750 1377 -150 PT 14.0 SEC (12.0-15.0) 07/26/17 06:10 INR 1.09 (0.83-1.16) 07/26/17 06:10 Physical Exam - Physical Exam General Appearance: alert, no apparent distress Respiratory: lungs clear, normal breath sounds Cardiac/Chest: regular rate, rhythm Abdomen: non-tender, soft ICD10 Worksheet Patient Problems: Problems Problem Status Onset Palliative care encounter Acute Renal insufficiency Acute Serum potassium elevated Acute Chronic Disease Managment/Transitional Care Program Acute Pneumonia Acute
[2017-08-02] MEDS ORDERED: MAGNESIUM CITRATE 300 ML BOTTLE PO ONE (13:41)
--- NOTE | 2017-08-02 14:47 | SOAPPROG ---
SOAP Progress Note Assessment/Plan: Assessment: 87-YEAR-OLD FEMALE STATUS POST I AND D OF LEFT LEG ABSCESS/DRESSING DRY AND INTACT/POSSIBLE PALPABLE PULSES/UNDERGOING GI WORKUP FOR OCCULT BLEEDING Plan: DRESSING CHANGE IN THE A.M. TO EVALUATE FOR WOUND VAC BENEFIT/ARTERIAL STUDIES TO EVALUATE CIRCULATION 08/01/17 17:33 08/02/17 14:45 AFEBRILE/COMFORTABLE/DRESSINGS DRY/ LEFT LOWER EXTREMITY DRESSINGS CHANGED/MEDIAL LONG INCISION IS QUITE CLEAN AND SHOULD BE READY FOR DPC SOON/WOUND VAC MIGHT BE HELPFUL A 2 WOUND IS SO CLEAN NOW WITH FINGER COULD BE CLOSED. SMALLER LATERAL WOUND THE IS NOT READY FOR CLOSURE AND WOULD CONTINUE PACKING THAT WOUND Objective: Vital Signs Temp Pulse Resp BP Pulse Ox 36.5 C 69 12 120/71 100 08/02/17 13:35 08/02/17 13:35 08/02/17 13:35 08/02/17 13:35 08/02/17 13:35 Microbiology 07/30/17 13:35 Gram Stain - Final Leg - Eswab 07/29/17 11:51 Gram Stain - Final Ankle - Swab Wound Culture - Final Laboratory Results 08/02/17 05:30 08/02/17 05:30 08/01/17 08/02/17 08/03/17 05:59 05:59 05:59 Intake Total 750 1378 Output Total 1 150 Balance 750 1377 -150 PT 14.0 SEC (12.0-15.0) 07/26/17 06:10 INR 1.09 (0.83-1.16) 07/26/17 06:10 ICD10 Worksheet Patient Problems: Problems Problem Status Onset Palliative care encounter Acute Renal insufficiency Acute Serum potassium elevated Acute Chronic Disease Managment/Transitional Care Program Acute Pneumonia Acute
--- NOTE | 2017-08-02 15:08 | HOSPPROG ---
Hospitalist Progress Note Assessment/Plan: * GIB due to anticoagulation - never gross blood, only heme + stool -now stable off anti-coag -EGD negative x 2 -colonoscopy declined -SB capsule stuck RLQ - no data * Afib -ASA only due to bleed -metoprolol, amiodarone, diltiazem * ABL anemia -s/p 6 units PRBC * ARF/hyperkalemia - due to hypovolemia + Bactrim * Hypotension/shock - dopamine gtt weaned off -probably due to sepsis * LLE cellulitis with abscess s/p I& D -may need wound vac * Cardiac pause - 12 seconds - s/p PCM * Bronchiectasis with chronic respiratory failure - 4L * NADIYA/CPAP * DM II * Pseudomonas UTI -IV cefepime * Constipation - also still nerds to pass SB capsule -Mag citrate Subjective: Still no BM despite MOM x 2, miralax Objective: Vital Signs Temp Pulse Resp BP Pulse Ox 36.5 C 69 12 120/71 100 08/02/17 13:35 08/02/17 13:35 08/02/17 13:35 08/02/17 13:35 08/02/17 13:35 Microbiology 07/30/17 13:35 Gram Stain - Final Leg - Eswab 07/29/17 11:51 Gram Stain - Final Ankle - Swab Wound Culture - Final Laboratory Results 08/02/17 05:30 08/02/17 05:30 08/01/17 08/02/17 08/03/17 05:59 05:59 05:59 Intake Total 750 1378 Output Total 1 150 Balance 750 1377 -150 PT 14.0 SEC (12.0-15.0) 07/26/17 06:10 INR 1.09 (0.83-1.16) 07/26/17 06:10 - Physical Exam Constitutional: no apparent distress, appears nourished, not in pain Cardiovascular: regular rate and rhythym, no murmur, rub, or gallop Respiratory: no respiratory distress, no rales or rhonchi, clear to auscultation Gastrointestinal: normoactive bowel sounds, soft, non-tender abdomen, no palpable masses Skin: no rashes or abrasions, no fluctuance, no induration Neurologic: AAOx3, sensation intact bilaterally Psychiatric: interacting appropriately, not anxious, not encephalopathic, thought process linear ICD10 Worksheet Patient Problems: Problems Problem Status Onset Palliative care encounter Acute Renal insufficiency Acute Serum potassium elevated Acute Chronic Disease Managment/Transitional Care Program Acute Pneumonia Acute
--- NOTE | 2017-08-02 16:48 | PCMIDPN ---
Assessment/Plan: Assessment: Probable sepsis of unclear etiology. We have no blood cultures from earlier when the patient became hypotensive so it is difficult to tell what the etiology of this episode might have been. Patient does have some abnormal urinalysis from that time although the pyuria was not extensive. The presence of bacteria in the urine of an 87-year-old female is a quite normal circumstance. Agree with empirically covering for the Pseudomonas and Klebsiella as possible etiologic agents from urinary source with cefepime given the circumstances are quite consistent with bacterial sepsis. Left lower extremity areas status post incision and drainage. Given the prior antibiotic use it is unclear whether the operative cultures will grow out a pathogen. Discontinuing antibiotics today.. Plan: 1. Discontinue IV cefepime. 2. Follow clinical course. Subjective: Patient is feeling a little stronger today. She remains mostly in bed although she has gotten up to the chair once already this morning. Spoke to daughter who is encouraged with her improvement. Objective: Cefepime # 8 Vital Signs Temp Pulse Resp BP Pulse Ox 36.4 C 86 16 135/98 H 99 08/02/17 16:25 08/02/17 16:25 08/02/17 16:25 08/02/17 16:25 08/02/17 16:25 Microbiology 07/30/17 13:35 Gram Stain - Final Leg - Eswab Laboratory Results 08/02/17 05:30 08/02/17 05:30 08/01/17 08/02/17 08/03/17 05:59 05:59 05:59 Intake Total 750 1378 Output Total 1 150 Balance 750 1377 -150 - Physical Exam General Appearance: WD/WN, alert, no apparent distress, non-toxic Respiratory: lungs clear, normal breath sounds, No respiratory distress Cardiac/Chest: regular rate, rhythm, No tachycardia Skin: normal color, warm/dry, No rash Neuro/Psych: alert, normal mood/affect, oriented x 3 ICD10 Worksheet Patient Problems: Problems Problem Status Onset Palliative care encounter Acute Renal insufficiency Acute Serum potassium elevated Acute Chronic Disease Managment/Transitional Care Program Acute Pneumonia Acute
[2017-08-03 05:51] LABS: % IMMATURE GRANULYOCYTES 0.5 % (0.0-1.1); ABSOLUTE IMMATURE GRANULOCYTES 0.04 10^3/uL (0.00-0.10); ADD DIFF? NO; ADD MORPH? NO; ADD SCAN? NO; ATYPICAL LYMPHOCYTE FLAG 10 (0-99); FRAGMENT RBC FLAG 0 (0-99); HEMATOCRIT 26.4 % (38.0-47.0); HEMOGLOBIN 7.9 g/dL (12.6-16.3); LEFT SHIFT FLG 0 (0-99); LIPEMIA HEMOLYSIS FLAG 70 (0-99); MEAN CELL HEMOGLOBIN 30.4 pg (27.9-34.1); MEAN CELL HEMOGLOBIN CONCENTR. 29.9 g/dL (32.4-36.7); MEAN CELL VOLUME 101.5 fL (81.5-99.8); MEAN PLATELET VOLUME 9.4 fL (8.7-11.7); PLATELET CLUMPS FLAG 0 (0-99); PLATELET COUNT 307 10^3/uL (150-400); RED CELL DISTRIBUTION WIDTH 19.7 % (11.5-15.2)
[2017-08-03] MEDS: METOPROLOL TARTRATE 25 MG TAB PO SCH ×2 (10:35→20:46)
[2017-08-03] MEDS: MULTIVITAMINS 1 EACH TAB PO SCH (10:36)
[2017-08-03] MEDS: SENNOSIDES/DOCUSATE SODIUM TAB PO SCH ×2 (10:36→23:09)
[2017-08-03] MEDS: AMIODARONE HCL 200 MG TAB PO SCH ×2 (10:36→20:46)
[2017-08-03] MEDS: INSULIN LISPRO 100 UNIT/1 ML VIAL STANDARD SC SCH ×3 (10:37→18:32)
[2017-08-03] MEDS: LEVOTHYROXINE 50 MCG TAB PO SCH (10:48)
--- NOTE | 2017-08-03 13:43 | PCMIDPN ---
Assessment/Plan: Assessment/Plan: * Probable sepsis of undefined etiology: Sepsis now resolved. No identified etiology with considerations including urine versus lower extremity skin and soft tissue infection. Wounds examined today without signs of infection being present. Continue to monitor off of antibiotics. Will sign off. Please call questions. 08/03/17 13:41 Subjective: Feels much better without significant complaints. Objective: Vital Signs Temp Pulse Resp BP Pulse Ox 36.3 C 55 L 16 115/72 99 08/03/17 12:50 08/03/17 12:50 08/03/17 12:50 08/03/17 12:50 08/03/17 12:50 Microbiology 07/30/17 13:35 Gram Stain - Final Leg - Eswab Laboratory Results 08/03/17 05:45 08/02/17 05:30 08/02/17 08/03/17 08/04/17 05:59 05:59 05:59 Intake Total 1378 400 Output Total 1 770 Balance 1377 -370 No antibiotic therapy (cefepime discontinued yesterday) Lower extremity fluid collection cultures no growth - Physical Exam General Appearance: alert, no apparent distress Extremities: inflammation (Wounds both with clean base and no surrounding cellulitis or purulent drainage) ICD10 Worksheet Patient Problems: Problems Problem Status Onset Palliative care encounter Acute Renal insufficiency Acute Serum potassium elevated Acute Chronic Disease Managment/Transitional Care Program Acute Pneumonia Acute
--- NOTE | 2017-08-03 13:44 | SOAPPROG ---
SOAP Progress Note Assessment/Plan: Assessment/Plan: 87yo F POD#4 s/p LLE medial lower leg I&D - Dressings minimally saturated, wound bed looks overall clean and pretty healthy, wound edges are clean. Will plan for VAC today. Looking for dc tomorrow , which is ok from my standpoint with the VAC. F/u in clinic next week, will discuss closing some of the wound at that time. 07/31/17 14:45 07/31/17 14:46 08/03/17 13:43 Subjective: Doing well, denies pain Objective: Vital Signs Temp Pulse Resp BP Pulse Ox 36.3 C 55 L 16 115/72 99 08/03/17 12:50 08/03/17 12:50 08/03/17 12:50 08/03/17 12:50 08/03/17 12:50 Microbiology 07/30/17 13:35 Gram Stain - Final Leg - Eswab Laboratory Results 08/03/17 05:45 08/02/17 05:30 08/02/17 08/03/17 08/04/17 05:59 05:59 05:59 Intake Total 1378 400 Output Total 1 770 Balance 1377 -370 PT 14.0 SEC (12.0-15.0) 07/26/17 06:10 INR 1.09 (0.83-1.16) 07/26/17 06:10 ICD10 Worksheet Patient Problems: Problems Problem Status Onset Palliative care encounter Acute Renal insufficiency Acute Serum potassium elevated Acute Chronic Disease Managment/Transitional Care Program Acute Pneumonia Acute
--- NOTE | 2017-08-03 14:17 | ASMTCMCOM ---
CM Note CM Note Notes: 08/03/2017 Case Management Note: Faxed updates to [facility]. Case Management d/c poc: remains [facility] when medically stable. Case Management to follow. Anticipating d/c mid to late week. 07/31/2017 CM Note Pt had I&D of LLE yesterday. Met w/pt and dtr to discuss DC POC which is still to [facility] when med stable. Updated Shannon at [facility]. DON w/f. Date Signed: 08/03/2017 02:16 PM Electronically Signed By:Ana Adam RN
[2017-08-03] MEDS ORDERED: HYDROCODONE/APAP 5/325 TAB PO PRN (15:46)
[2017-08-03] MEDS ORDERED: oxyCODONE IR 5 MG TAB PO PRN (16:19)
--- NOTE | 2017-08-03 16:46 | HOSPPROG ---
Hospitalist Progress Note Assessment/Plan: * GIB due to anticoagulation - never gross blood, only heme + stool -now stable off anti-coag -EGD negative x 2 -colonoscopy declined -SB capsule stuck RLQ - no data * Afib -ASA only due to bleed -metoprolol, amiodarone, diltiazem * ABL anemia -s/p 6 units PRBC * ARF/hyperkalemia - due to hypovolemia + Bactrim * Hypotension/shock - dopamine gtt weaned off -probably due to sepsis * LLE cellulitis with abscess s/p I& D -wound vac placed today * Cardiac pause - 12 seconds - s/p PCM * Bronchiectasis with chronic respiratory failure - 4L * NADIYA/CPAP * DM II * Pseudomonas UTI -IV cefepime - complete * Constipation - also still nerds to pass SB capsule -s/p Mag citrate - await result Subjective: only smear BM so far, no capsule Objective: Vital Signs Temp Pulse Resp BP Pulse Ox 36.4 C 60 18 123/76 H 100 08/03/17 16:20 08/03/17 16:20 08/03/17 16:20 08/03/17 16:20 08/03/17 16:20 Microbiology 07/30/17 13:35 Gram Stain - Final Leg - Eswab Laboratory Results 08/03/17 05:45 08/02/17 05:30 08/02/17 08/03/17 08/04/17 05:59 05:59 05:59 Intake Total 1378 400 150 Output Total 1 770 Balance 1377 -370 150 PT 14.0 SEC (12.0-15.0) 07/26/17 06:10 INR 1.09 (0.83-1.16) 07/26/17 06:10 - Physical Exam Constitutional: no apparent distress, appears nourished, not in pain Cardiovascular: regular rate and rhythym, no murmur, rub, or gallop Respiratory: no respiratory distress, no rales or rhonchi, clear to auscultation Gastrointestinal: normoactive bowel sounds, soft, non-tender abdomen, no palpable masses Skin: no rashes or abrasions, no fluctuance, no induration Neurologic: AAOx3, sensation intact bilaterally Psychiatric: interacting appropriately, not anxious, not encephalopathic, thought process linear ICD10 Worksheet Patient Problems: Problems Problem Status Onset Palliative care encounter Acute Renal insufficiency Acute Serum potassium elevated Acute Chronic Disease Managment/Transitional Care Program Acute Pneumonia Acute
[2017-08-03] MEDS: LIDOCAINE HCL 4% TOPICAL SOLN 50ML TP PRN (18:12)
--- NOTE | 2017-08-03 18:44 | WOCRNPDOC ---
WOCRN Advanced Assessment Note - Skin Integrity Problem, Advanced Assess Left Lower Lateral Ankle Surgical Wound/Incision Dressing Type: Kerlix, Other Other Dressing Type: Netting Dressing Description: Intact, Shadowed Exudate Amount: Scant Exudate Color: Reddish/Yellow Exudate Characteristic(s): Serosanguinous Integumentary Issue Intervention: Dressing Changed Feliz Wound Tissue: Ecchymotic, Swollen Feliz Wound Swelling: Mild Wound Bed Color: Red, Yellow Wound Bed Constitution: Adhered Slough (100%) Site Measurement - Head-to-Toe Length X Width X Depth (cm): 2.4cmx1.6cmx0.3cm Skin Integrity Problem Comment: Wound cleaned with wound cleanser and gauze. Wound bed noted to be excessively dry with areas of necrosis. Wound gel applied to wound bed and covered with Alleyvn life. This wound needs be kept moist and autolytic debridement will be an issue. Vickie BAUTISTA present at bedside. Left Medial Leg Surgical Wound/Incision Dressing Type: Kerlix, Other Other Dressing Type: Netting Dressing Description: Intact, Shadowed Exudate Amount: Minimal Exudate Color: Reddish/Yellow Exudate Characteristic(s): Serosanguinous Integumentary Issue Intervention: Dressing Changed Feliz Wound Tissue: Erythema Feliz Wound Swelling: Mild Wound Bed Color: Red Wound Bed Constitution: Smooth Tissue, Undermining (7 o'clock to 11 o'clock, 0.5cm), Muscle, Subcutaneous Fat, Fascia Wound Edges: Well Defined Site Measurement - Head-to-Toe Length X Width X Depth (cm): 3.7cmx1.7cmx2.4cm Skin Integrity Problem Comment: 4% liquid lidocaine applied to wound bed. While waiting for the lidocaine to take effect, feliz wound skin was prepped and draped. Wound cleaned with wound cleanser and gauze and probed with Qtip. 2 pieces small black simplace foam used to fill wound. Suction applied at - 125mmHg with good seal. Patient tolerated the procedure well. Vickie ABUTISTA at bedside.
[2017-08-04] MEDS: ALTEPLASE 2 MG VIAL IVP PRN ×2 (04:51→04:52)
[2017-08-04 05:40] LABS: % IMMATURE GRANULYOCYTES 0.5 % (0.0-1.1); ABSOLUTE IMMATURE GRANULOCYTES 0.04 10^3/uL (0.00-0.10); ABSOLUTE NRBC COUNT 0.03 10^3/uL (0-0.01); ADD DIFF? NO; ADD MORPH? NO; ADD SCAN? NO; ATYPICAL LYMPHOCYTE FLAG 20 (0-99); FRAGMENT RBC FLAG 0 (0-99); HEMATOCRIT 28.3 % (38.0-47.0); HEMOGLOBIN 8.4 g/dL (12.6-16.3); LEFT SHIFT FLG 0 (0-99); LIPEMIA HEMOLYSIS FLAG 70 (0-99); MEAN CELL HEMOGLOBIN 30.2 pg (27.9-34.1); MEAN CELL HEMOGLOBIN CONCENTR. 29.7 g/dL (32.4-36.7); MEAN CELL VOLUME 101.8 fL (81.5-99.8); MEAN PLATELET VOLUME 9.4 fL (8.7-11.7); NRBC-AUTO% 0.4 % (0.0-0.2); PLATELET CLUMPS FLAG 0 (0-99); PLATELET COUNT 335 10^3/uL (150-400); RED BLOOD CELL COUNT 2.78 10^6/uL (4.18-5.33); RED CELL DISTRIBUTION WIDTH 19.3 % (11.5-15.2)
[2017-08-04] MEDS: LEVOTHYROXINE 50 MCG TAB PO SCH (06:16)
[2017-08-04 07:24] LABS: ANION GAP 5 mEq/L (8-16); CALCIUM 8.9 mg/dL (8.5-10.4); CARBON DIOXIDE 27 mEq/l (22-31); CHLORIDE 106 mEq/L (97-110); GLOMERULAR FILTRATION RATE 52; GLUCOSE 96 mg/dL (70-100); POTASSIUM 4.3 mEq/L (3.5-5.2); SODIUM 138 mEq/L (134-144)
[2017-08-04] MEDS: INSULIN LISPRO 100 UNIT/1 ML VIAL STANDARD SC SCH ×3 (08:34→18:10)
[2017-08-04] MEDS: SENNOSIDES/DOCUSATE SODIUM TAB PO SCH ×2 (09:42→22:30)
[2017-08-04] MEDS: MULTIVITAMINS 1 EACH TAB PO SCH (09:44)
[2017-08-04] MEDS: AMIODARONE HCL 200 MG TAB PO SCH ×2 (09:44→21:15)
[2017-08-04] MEDS: METOPROLOL TARTRATE 25 MG TAB PO SCH ×2 (09:44→21:16)
--- NOTE | 2017-08-04 10:25 | SOAPPROG ---
SOAP Progress Note Assessment/Plan: Assessment/Plan: 87yo F POD#4 s/p LLE medial lower leg I&D - VAC placed yesterday, holding suction appropraitely and minimal drainage in canister. Denies pain. Receiving US of R arm now for poss clot, placement on hold until we can r/o clot and see if she passed her capsule endoscopy camera 07/31/17 14:45 07/31/17 14:46 08/03/17 13:43 08/04/17 10:23 Subjective: No complaints, has some RUE swelling, receiving bedside us now Objective: Vital Signs Temp Pulse Resp BP Pulse Ox 36.3 C 78 18 113/62 98 08/04/17 08:23 08/04/17 09:44 08/04/17 08:23 08/04/17 09:44 08/04/17 08:23 Microbiology 07/30/17 13:35 Gram Stain - Final Leg - Eswab Laboratory Results 08/04/17 05:25 08/04/17 05:25 08/03/17 08/04/17 08/05/17 05:59 05:59 05:59 Intake Total 400 550 Output Total 770 Balance -370 550 PT 14.0 SEC (12.0-15.0) 07/26/17 06:10 INR 1.09 (0.83-1.16) 07/26/17 06:10 ICD10 Worksheet Patient Problems: Problems Problem Status Onset Palliative care encounter Acute Renal insufficiency Acute Serum potassium elevated Acute Chronic Disease Managment/Transitional Care Program Acute Pneumonia Acute
[2017-08-04] MEDS ORDERED: IOPAMIDOL (ISOVUE-300) 100 ML BTL ONE (14:59)
--- NOTE | 2017-08-04 17:16 | HOSPPROG ---
Hospitalist Progress Note Assessment/Plan: * GIB due to anticoagulation - never gross blood, only heme + stool -now stable off anti-coag -EGD negative x 2 -colonoscopy declined -SB capsule moved too slow through stomach - no data -CT abd/pelvis negative * Afib -ASA only due to bleed -metoprolol, amiodarone * ABL anemia -s/p 6 units PRBC * ARF/hyperkalemia - due to hypovolemia + Bactrim * Septic shock (POA) - dopamine gtt weaned off * LLE cellulitis with abscess s/p I& D -wound vac * Cardiac pause - 12 seconds - s/p PCM * Bronchiectasis with chronic respiratory failure - 4L * NADIYA/CPAP * DM II * Pseudomonas UTI -IV cefepime - complete * Constipation - also still needs to pass SB capsule -CT still with extensive stool -if no SB capsule seen prior to discharge, need outpatient KUB in 1 week to ensure passage * RUE superficial clot related to PICC -DC PICC -okay for no IV access as likely to dispo to SNF in am Subjective: No new complaints Objective: Vital Signs Temp Pulse Resp BP Pulse Ox 36.3 C 60 18 131/80 H 100 08/04/17 16:00 08/04/17 16:00 08/04/17 15:04 08/04/17 15:04 08/04/17 15:04 Microbiology 07/30/17 13:35 Gram Stain - Final Leg - Eswab Laboratory Results 08/04/17 05:25 08/04/17 05:25 08/03/17 08/04/17 08/05/17 05:59 05:59 05:59 Intake Total 400 550 360 Output Total 770 Balance -370 550 360 PT 14.0 SEC (12.0-15.0) 07/26/17 06:10 INR 1.09 (0.83-1.16) 07/26/17 06:10 KUB viewed, my personal interpretation is - stool in rectal vault, SB capsule has not moved CT a/p - no obstruction, capsule has moved, still lots of stool RUE US - basilic vein clot related to PICC - Physical Exam Constitutional: no apparent distress, appears nourished, not in pain Cardiovascular: regular rate and rhythym, no murmur, rub, or gallop Respiratory: no respiratory distress, no rales or rhonchi, clear to auscultation Gastrointestinal: normoactive bowel sounds, soft, non-tender abdomen, no palpable masses Skin: no rashes or abrasions, no fluctuance, no induration Neurologic: AAOx3, sensation intact bilaterally Psychiatric: interacting appropriately, not anxious, not encephalopathic, thought process linear ICD10 Worksheet Patient Problems: Problems Problem Status Onset Palliative care encounter Acute Renal insufficiency Acute Serum potassium elevated Acute Chronic Disease Managment/Transitional Care Program Acute Pneumonia Acute
[2017-08-04] MEDS: BISACODYL 10 MG SUPP PR PRN (17:56)
[2017-08-05] MEDS: LEVOTHYROXINE 50 MCG TAB PO SCH (05:29)
[2017-08-05] MEDS: INSULIN LISPRO 100 UNIT/1 ML VIAL STANDARD SC SCH ×2 (08:40→15:20)
[2017-08-05] MEDS ORDERED: ASPIRIN EC 81 MG TAB PO SCH (09:00)
[2017-08-05] MEDS: LIDOCAINE HCL 4% TOPICAL SOLN 50ML TP PRN (10:00)
--- NOTE | 2017-08-05 11:57 | WOCRNPDOC ---
WOCRN Advanced Assessment Note - Skin Integrity Problem, Advanced Assess Left Lower Leg Other Dressing Type: x2 Left Lower Lateral Ankle Surgical Wound/Incision Dressing Type: Non-Bordered Foam Dressing Description: Clean/Dry, Intact Exudate Characteristic(s): None Integumentary Issue Intervention: Visualized Under Dressing Feliz Wound Tissue: Erythema, Swollen Feliz Wound Swelling: Mild Wound Bed Color: Yellow Wound Bed Constitution: Adhered Slough (100%) Skin Integrity Problem Comment: Wound bed with increased moisture. Feliz wound tissue less errythematic than Thursday. Continue current plan of care. Left Medial Leg Surgical Wound/Incision Dressing Type: Black Vac Foam (x2), Wound Vac Dressing Description: Intact Exudate Amount: Minimal Exudate Characteristic(s): Serosanguinous Integumentary Issue Intervention: Dressing Changed Feliz Wound Tissue: Ecchymotic, Erythema Wound Bed Color: Red, Yellow Wound Bed Constitution: Smooth Tissue, Undermining (From 7 o'clock to 11 o'clock , improved since Thursday), Subcutaneous Fat Wound Edges: Well Defined Skin Integrity Problem Comment: 4% liquid lidocaine applied to wound bed for patient compaint of pain. Wound cleaned with wound cleanser and gauze. Skin prep applied to feliz wound tissue and draped. 2 pieces black simplace foam used to fill the wound bed. Good seal achieved at -125mmHg. Patient tolerated the procedure well.
[2017-08-05] MEDS: METOPROLOL TARTRATE 25 MG TAB PO SCH (12:05)
[2017-08-05] MEDS: SENNOSIDES/DOCUSATE SODIUM TAB PO SCH (12:05)
[2017-08-05] MEDS: AMIODARONE HCL 200 MG TAB PO SCH (12:05)
[2017-08-05] MEDS: MULTIVITAMINS 1 EACH TAB PO SCH (12:05)
[2017-08-05 12:30] VITALS: BP 130/66; PULSE 85; RESP 19; TEMP 95.3; O2SAT 2
--- NOTE | 2017-08-05 13:08 | PDIAF ---
- Diagnosis Diagnosis: Sinus arrest, GI bleed Code Status: Do Not Resuscitate - Medication Management Discharge Medications: Medications to Continue on Transfer Metformin HCl [Metformin 1000 mg] 1,000 mg PO BID 01/09/14 [Last Taken 07/10/17 09:00] Levothyroxine [Synthroid 50 mcg (*)] 50 mcg PO DAILY06 07/10/17 [Last Taken 11/25] Multivitamins [Multivitamin (*)] 1 each PO DAILY 07/10/17 [Last Taken 07/10/17] Pregabalin [Lyrica 50mg (*)] 50 mg PO BID 07/10/17 [Last Taken 07/10/17 09:00] Amiodarone HCl [Pacerone (*)] 200 mg PO BID tab 08/05/17 [Last Taken Unknown] Aspirin EC [Aspirin EC 81 mg (*)] 81 mg PO DAILY tab 08/05/17 [Last Taken Unknown] Lidocaine HCl [Lidocaine HCl 4% Topical Soln (*)] 10 ml TP MWF PRN bottle 08/05 [Last Taken Unknown] Metoprolol Tartrate [Lopressor 25 mg (*)] 25 mg PO BID tab 08/05/17 [Last Taken Unknown] Polyethylene Glycol 3350 [Miralax 17 gm (*)] 17 gm PO DAILY PRN pkt 08/05/17 [ Last Taken Unknown] oxyCODONE IR [Oxycodone Ir (*)] 5 mg PO Q4 PRN tab 08/05/17 [Last Taken Unknown ] Discharge Medications: Refer to the Discharge Home Medication list for PRN reason. - Orders Services needed: Registered Nurse, Certified [facility] Work[facility] Assisted Living, Physical Therapy, Occupational Therapy Oxygen: 4L Diet Recommendation: no restrictions on diet Diet Texture: Regular Texture Diet, Thin Liquids, Meds Whole w/Liquids Weigh Patient: weekly Wound Care Instructions: Dressing change orders for left lateral ankle: To be done q 2 days and PRN. 1) Cleanse site w/ NS and gauze,. 2) Apply skin prep to feliz-wound skin. 3) Apply honey gel to cover wound bed. 4) Cut non- bordered foam to fit wound bed. 5) Secure with medipore tape. Wound vac information: Black foam used for wound vac. Suction to -125mmHg, continuous. Vac to be changed MWF. Kaylin Jj RN, Wound Care Team - Labs/Radiology BMP Date: 08/07/17 CBC Date: 08/07/17 - Follow Up Care Current Providers and Referrals: Bob Esposito MD [Medical Doctor] - (Pacemaker check at [facility] in [place] on 08/18/17 at 10:00) SCOTT CURTIS [Primary Care Provider] - As per Instructions
--- NOTE | 2017-08-05 13:53 | ASMTCMCOM ---
CM Note CM Note Notes: Pt is discharging today to [facility]. CM consulted w/ Dr. Jesus, the attending on d/c POC. CM has been coordinating w/ KETAN Ewing on this d/c. CM notified [facility] of her d/c. CM sent d/c orders to [facility]. CM provided KETAN Ewing w/ regla max to give report. Pt will be transported via wheelchair. [facility] will re-attach wound vac once she arrives. CM available for changes. Date Signed: 08/05/2017 01:53 PM Electronically Signed By:SHANNA Orta
--- NOTE | 2017-08-05 14:09 | GDS ---
[f rep st] DISCHARGE SUMMARY DIAGNOSES: 1. Gastrointestinal bleed in the setting of anticoagulation, suspected small- bowel source. 2. Atrial fibrillation. 3. Acute blood loss anemia status post 4-units of packed red blood cells. 4. Acute renal failure and hyperkalemia. 5. Septic shock present on arrival. 6. Left lower extremity cellulitis with abscess. 7. Cardiac pause of 12-seconds, status post pacemaker. 8. Chronic bronchiectasis with chronic respiratory failure on 4 L at baseline. 9. Obstructive sleep apnea on CPAP. 10. Diabetes mellitus type 2. 11. Pseudomonas urinary tract infection. 12. Constipation. 13. Right upper extremity superficial clot. HOSPITAL COURSE BY PROBLEM: 1. Gastrointestinal bleed in the setting of anticoagulation: She had significant falls in her hemoglobin down to as low as 5.6, requiring a total of 4-units of blood. This was in the setting of her anticoagulation on admission and heparin drip, which was reinstituted during this hospitalization. She had 2 EGDs, which were both negative. She never had gross blood or melena. She declined a colonoscopy though seems less likely given the significant increase in her BUN in the same setting. She underwent a capsule endoscopy, which was negative as it moved too slowly through the stomach and we did not get any data. Her CT of the abdomen and pelvis has also been negative looking for a source. Again, source on this is unclear. She should follow up with Dr. Schofield. If she has ongoing bleeding or fall or hemodynamic instability should be sent back to the hospital for ongoing management. She will not be discharged on anticoagulation, however, on aspirin for stroke prophylaxis. 2. Atrial fibrillation: Currently stable on metoprolol and amiodarone. Initially had some difficulty with rate control. As above, aspirin for cerebrovascular accident prophylaxis. 3. Cardiac pause of 12-seconds, pacemaker was placed by Dr. Esposito. She has a followup appointment with him. 4. Acute blood loss anemia status post 4-units of packed red blood cells. 5. Acute kidney injury and hyperkalemia: These have resolved. Thought to be due to hypovolemia and Bactrim. 6. Septic shock with source being left lower extremity cellulitis versus pseudomonas urinary tract infection. She required dopamine in the ICU. This has been weaned off. Her blood pressure has been stable. She has been tolerating metoprolol well. 7. Pseudomonas urinary tract infection: She got a total of 7-days of IV cefepime for this. 8. Left lower extremity cellulitis and abscess: This was incised and drained. She currently has a Wound VAC in place. She has been seen by Infectious Disease who recommends monitoring her off antibiotics as it does not have any secondary signs of infection post I and D. 9. Right upper extremity superficial clot: PICC was discontinued. FOLLOWUP: 1. Dr. Esposito on 08/18 at 10 o'clock. 2. Follow up with her Primary Care Physician. 3. Follow up with Dr. Schofield or someone else from Gastroenterology in about 2- weeks. 4. Follow up with General surgery, Dr. Arias or Dr. Cash in 1-week. WOUND CARE: Wound VAC is currently in place in the left lower extremity. Wound care orders were left in the interagency transfer form. DISCONTINUE MEDICATIONS: Keflex, Bactrim, furosemide, given this, watch for volume overload. BILLING: Spent more than 30-minutes on the day of discharge coordinating care. /[id number]/MODL MTDD
--- NOTE | 2017-08-05 16:39 | ASDISCHSUM ---
Discharge Information Plan Status:SNF Medically Cleared to Leave:08/05/2017 Discharge Date:08/05/2017 04:20 PM D/C Disposition:Care Home Facility ADT D/C Disposition:Rehab Advertisement Compositor Care Projected Discharge Date:08/05/2017 11:00 AM Transportation at D/C:Wheelchair Van Discharge Delay Reason: Follow-Up Date:08/05/2017 11:00 AM Discharge Slot: Final Diagnosis: Placement Information Referral Type:*Chcf/SNF Referral ID:[id number] Provider Name:[facility] Address 1:[address] Address 2: City:[place] Selection Factors: State:[place] Patient Contact Information Contact Name:LUZ Relationship:Daughter Address:[address] Work Phone: [facility]:[place] Alternate Phone: [facility]/Zip Code:[place] [address] Email: Financial Information Financial Class: Primary Plan Desc:MEDICARE INPATIENT Primary Plan Number:[id number] Secondary [facility] Desc[facility] Secondary Plan Number:[id number] Assessment Information [facility] CM Progress Note CM Note CM Note Notes: Pt admitted for hyperkalemia and per RN is somnolent and unable to discuss DC plan. Per RN, pt has been living with [facility] for past few month. She has a dtr in the area. RN feels that pt saji need SNF at DC. C/M will f/u when pt able to participate. Date Signed: 07/11/2017 02:02 PM Electronically Signed By:Charity Jaffe LCSW [facility] CM Progress Note CM Note CM Note Notes: Spoke to patient and her [id number] regarding the need for SNF Rehab at discharge. She has many friends at [facility] and lives in that neighborhood. [facility] would be her 1st choice, [facility] in [place] her 2nd choice. Sent referrals to both facilities. Date Signed: 07/14/2017 04:06 PM Electronically Signed By:Karla Robbins LCSW [facility] CM Progress Note CM Note CM Note Notes: Referrals were sent to [facility] and [facility] not have any beds.Shannon from [facility] states they accept patient but will need updates since patient had code blue episode yesterday. Patient may need to have a pacemaker placed. Faxed Shannon new updates from yesterday and today. CM will follow. Date Signed: 07/15/2017 02:36 PM Electronically Signed By:Sima Chavez LCSW [facility] CM Progress Note CM Note CM Note Notes: Patient is getting her pacemaker today. D/C plan continues to be [facility]. CM will follow. Date Signed: 07/16/2017 02:50 PM Electronically Signed By:Sima Chavez LCSW [facility] CM Progress Note CM Note CM Note Notes: [facility]. Date Signed: 07/19/2017 02:28 PM Electronically Signed By:Karla Robbins LCSW [facility] CM Progress Note CM Note CM Note Notes: DC POC still to go to [facility] when medically ready. Met w/pt to discuss and she is still in agreement w/this dc poc. Updated Katy at [facility]. CM should notify [facility] tomorrow AM as soon as we know if pt may dc tomorrow as they are tight on beds. CM w/f. Date Signed: 07/22/2017 04:06 PM Electronically Signed By:Jaycee De Jesus RN [facility] CM Progress Note CM Note CM Note Notes: 07/24/2017 Case Management Note: Palliative Consult ordered today. Please see Palliative Note for details. Case Management d/c poc: remains [facility] when medically stable. Contacted Shannon at [facility] w/update re: changes in medical condition. Case Management to follow. Date Signed: 07/24/2017 03:35 PM Electronically Signed By:Ana Adam RN [facility] CM Progress Note CM Note CM Note Notes: Met with patient and two of her daughters. Patient is making functional gains and should be ready for transfer to the floor soon. Patient and family still desire discharge to [facility] - I sent updated notes, and [facility] is following. CM to follow. Date Signed: 07/29/2017 11:59 AM Electronically Signed By:Kristina Shepard RN [facility] CM Progress Note CM Note CM Note Notes: Pt had I&D of LLE yesterday. Met w/pt and dtr to discuss DC POC which is still to [facility] SNF when med stable. Updated Shannon at [facility]. CM w/f. Date Signed: 07/31/2017 03:19 PM Electronically Signed By:Jaycee De Jesus RN [facility] CM Progress Note CM Note CM Note Notes: 08/03/2017 Case Management Note: [facility] Case Management d/c poc: remains [facility] rehab when medically stable. Case Management to follow. Anticipating d/c mid to late week. 07/31/2017 CM Note Pt had I&D of LLE yesterday. Met w/pt and dtr to discuss DC POC which is still to [facility] SNF when med stable. Updated Shannon at [facility]. DON w/f. Date Signed: 08/03/2017 02:16 PM Electronically Signed By:Ana Adam RN [facility] Progress Note CM Note CM Note Notes: Pt is discharging today to [facility]. DON consulted w/ Dr. Jesus, the attending on d/c POC. DON has been coordinating w/ KETAN Ewing on this d/c. CM notified [facility] of her d/c. CM sent d/c orders to [facility]. CM provided KETAN Ewing w/ regla max to give report. Pt will be transported via wheelchair. [facility] will re-attach wound vac once she arrives. DON available for changes. Date Signed: 08/05/2017 01:53 PM Electronically Signed By:SHANNA Orta Intervention Information Intervention Type:*IM-Signed Date of Service:07/23/2017 10:17 AM Patient Type:Inpatient Staff Member:Roxana Ochoa Hours: Discipline: Severity: Comment: Intervention Type:*IM-Signed Date of Service:08/05/2017 01:46 PM Patient Type:Inpatient Staff Member:Roxana Ochoa Hours: Discipline: Severity: Comment:
--- NOTE | 2017-08-11 05:21 | CPIP ---
[f rep st] INVASIVE CARDIAC PROCEDURE ARTERIAL STUDY Patient is an 87-year-old female seen with a left leg abscess drainage. She underwent arterial studies to assess blood supply for evaluation for healing of these surgical defects. Her PVR tracings show somewhat blunted, but good pulsatile flow all the way to the metatarsal levels bilaterally. Her ABIs, however, are greater than 1 bilaterally and look better than her PVR tracings. Her pulses were palpable. IMPRESSION: Certainly adequate blood flow to heal her left leg lesions. /[id number]/MODL MTDD
== END 2017-08-05 16:20 | DRG 871 ==
LOC: F2N 07-11 02:00 → F2W 07-17 10:35 → F2N 07-24 19:16 → F2W 07-31 21:00
PROVIDERS: ADMIT Internal Medicine; ATTEND Internal Medicine
PROC: 30233N1 Transfusion of Nonautologous Red Blood Cells into Peripheral Vein, Percutaneous Approach (ICD-10-PCS; 2017-07-10)
PROC: 03H333Z Insertion of Infusion Device into Right Subclavian Artery, Percutaneous Approach (ICD-10-PCS; 2017-07-11)
PROC: 02HK3JZ Insertion of Pacemaker Lead into Right Ventricle, Percutaneous Approach (ICD-10-PCS; principal; 2017-07-16)
PROC: 0JH634Z Insertion of Pacemaker, Single Chamber into Chest Subcutaneous Tissue and Fascia, Percutaneous Approach (ICD-10-PCS; principal; 2017-07-16)
PROC: 0DJ08ZZ Inspection of Upper Intestinal Tract, Via Natural or Artificial Opening Endoscopic (ICD-10-PCS; 2017-07-17)
PROC: 02HV33Z Insertion of Infusion Device into Superior Vena Cava, Percutaneous Approach (ICD-10-PCS; 2017-07-24)
PROC: 0DJ08ZZ Inspection of Upper Intestinal Tract, Via Natural or Artificial Opening Endoscopic (ICD-10-PCS; 2017-07-25)
PROC: 0H9LXZZ Drainage of Left Lower Leg Skin, External Approach (ICD-10-PCS; 2017-07-29)
PROC: 0HCLXZZ Extirpation of Matter from Left Lower Leg Skin, External Approach (ICD-10-PCS; 2017-07-30)
DX: A41.9 Sepsis, unspecified organism (principal); R65.21 Severe sepsis with septic shock; N17.9 Acute kidney failure, unspecified; E87.5 Hyperkalemia; N39.0 Urinary tract infection, site not specified; L03.116 Cellulitis of left lower limb; I44.2 Atrioventricular block, complete; I95.9 Hypotension, unspecified; E43 Unspecified severe protein-calorie malnutrition; D62 Acute posthemorrhagic anemia; K92.2 Gastrointestinal hemorrhage, unspecified; J96.11 Chronic respiratory failure with hypoxia; I11.0 Hypertensive heart disease with heart failure; I50.30 Unspecified diastolic (congestive) heart failure; I48.91 Unspecified atrial fibrillation; I48.92 Unspecified atrial flutter; J47.9 Bronchiectasis, uncomplicated; E11.649 Type 2 diabetes mellitus with hypoglycemia without coma; K59.00 Constipation, unspecified; R62.7 Adult failure to thrive; K29.70 Gastritis, unspecified, without bleeding; K44.9 Diaphragmatic hernia without obstruction or gangrene; G47.33 Obstructive sleep apnea (adult) (pediatric); B96.1 Klebsiella pneumoniae [K. pneumoniae] as the cause of diseases classified elsewhere; B96.5 Pseudomonas (aeruginosa) (mallei) (pseudomallei) as the cause of diseases classified elsewhere; E03.9 Hypothyroidism, unspecified; Z96.643 Presence of artificial hip joint, bilateral; Z96.651 Presence of right artificial knee joint; Z99.81 Dependence on supplemental oxygen
CPT/HCPCS: 82530-90; 82607-90; 82947-QW; 83010-90; 83789-90; 92523-GN; 92526-GN; 92610-GN; 92611-GN; 96365; 96366; 97110-GO; 97110-GP; 97116-GP; 97162-GP; 97166-GO; 97530-GO; 97530-GP; 97535-GO; C1751; C1786; C1898; G0008; G8978-GP-CK; G8978-GP-CL; G8979-GP-CJ; G8987-GO-CK; G8988-GO-CI; G8988-GO-CJ; G8989-GO-CJ; G8996-GN-CI; G8996-GN-CJ; G8997-GN-CH; G8997-GN-CI; G8997-GN-CJ; G8998-GN-CH; G8998-GN-CJ; G9171-GN-CJ; G9172-GN-CI; G9173-GN-CJ; J0282; J0690; J0692; J0696; J0834; J1265; J1650; J1815; J1940; J2250; J2370; J2704; J2997; J3010; J3370; J3475; P9016; P9040; P9047; Q9967